=== PATIENT | female | born 1970 | race African-American/Black ===

== ENCOUNTER 2018-07-04 11:59 | Inpatient (IN) | payer MEDICARE, MEDICAID ==
[2018-07-04] VITALS (32 sets, daily range): BP systolic 79–118; BP diastolic 48–71
[~2018-07-04] VITALS: Ht 180.3 cm; Wt 120.7 kg
[2018-07-04] MEDS ORDERED: ONDANSETRON HCL 4MG/2ML INJ IV STA (12:16)
[2018-07-04] MEDS ORDERED: SODIUM CHLORIDE 0.9% 10ML VIAL ONE (12:30)
[2018-07-04] MEDS ORDERED: PROPOFOL 10MG/ML 100ML 100 ML IV ONE (12:30)
[2018-07-04] MEDS ORDERED: ETOMIDATE 2MG/ML 10ML VIAL IV ONE ×2 (12:30)
[2018-07-04] MEDS ORDERED: VECURONIUM BROMIDE 10 MG/VIAL IV ONE ×2 (12:30)
[2018-07-04] MEDS ORDERED: VANCOMYCIN 1 G PREMIX 200 ML IV ONE (12:30)
[2018-07-04] MEDS ORDERED: SODIUM CHLORIDE 0.9% 1000ML BAG (SEPSIS BOLUS) IV ONE (12:30)
[2018-07-04] MEDS ORDERED: PIPERACILLIN/TAZ 3.375G PREMIX 50 ML IV ONE (12:30)
[2018-07-04 12:45] LABS: BASOPHILS % 0.3 % (0.0-2.0); EOSINOPHILS % 3.5 % (0.0-5.0); HEMATOCRIT. 31.9 % (36.0-48.0); HEMOGLOBIN. 9.4 g/dL (12.0-16.0); LYMPHOCYTES % 36.7 % (20.0-50.0); MEAN CORPUSCULAR HEMOGLOBIN 20.4 pg (28.0-32.0); MEAN CORPUSCULAR VOLUME 69.3 fL (81.0-99.0); MEAN PLATELET VOLUME 8.5 fl (7.4-10.4); MONOCYTES % 11.7 % (2.0-8.0); NEUTROPHILS % 47.8 % (40.0-76.0); PLATELET 269 x1000/uL (130-400)
[2018-07-04 12:51] LABS: CHLORIDE 99 mEq/L (98-107); INR 1.2; PROTHROMBIN TIME 11.9 sec (9.6-11.0)
[2018-07-04 12:55] LABS: ETHANOL BLOOD < 10 mg/dL
[2018-07-04 12:57] LABS: LDL CHOLESTEROL 78 mg/dL (5-100)
[2018-07-04 13:11] LABS: PLATELET ESTIMATE NORMAL
[2018-07-04] MEDS ORDERED: LORAZEPAM 2MG/ML CPJ IV ONE (13:15)
[2018-07-04 13:17] LABS: CLARITY URINE CLOUDY (CLEAR); COLOR URINE DARK YELLOW (YELLOW); KETONES URINE TRACE (NEGATIVE); LEUKOCYTE ESTERASE URINE 3+ (NEGATIVE); NITRITE URINE NEGATIVE (NEGATIVE); OCCULT BLOOD URINE 3+ (NEGATIVE); PH URINE 5.5 (4.5-8.0); PROTEIN URINE 2+ (NEGATIVE)
[2018-07-04] MEDS ORDERED: NOREPINEPHRINE 4MG/250ML PMX 250 ML IV ONE (14:30)
[2018-07-04 14:47] LABS: CREATINE KINASE 148 IU/L (26-192)
[2018-07-04 14:48] LABS: CREATINE KINASE MB FRACTION < 1.0 ng/mL (0.5-3.6)
[2018-07-04 15:11] LABS: BG BASE EXCESS -0.1 mmol/L (-2.0-2.0); BG CARBOXYHEMOGLOBIN 0.9 % (0.5-1.5); BG DEOXYHEMOGLOBIN 6.8 % (0.0-5.0); BG FRACTION INSPIRED OXYGEN 50; BG HCO3 ACT 26.3 mmol/L (22.0-26.0); BG METHEMOGLOBIN 0.1 % (0.0-1.5); BG OXYGEN SATURATION 93.1 % (92.0-98.5); BG OXYHEMOGLOBIN 92.2 % (94.0-97.0); BG PCO2 51.7 mmHg (35.0-45.0); BG PH 7.325 (7.350-7.450); BG PO2 73.6 mmHg (75.0-100.0); BG SAMPLE SITE RIGHT RADIAL; BG TIDAL VOLUME(mL) 600 mL; BG TOTAL HEMOGLOBIN 9.6 g/dL (12.0-18.0); BG VENT MODE VENT - A/C; BG VENT RATE 14 set
[2018-07-04 15:43] LABS: *AMPHETAMINES SCREEN URINE NEGATIVE (NEGATIVE); *BARBITURATES SCREEN URINE NEGATIVE (NEGATIVE); *BENZODIAZEPINES SCREEN URINE NEGATIVE (NEGATIVE); *COCAINE SCREEN URINE NEGATIVE (NEGATIVE); METHADONE URINE SCREEN NEGATIVE (NEGATIVE); OPIATES URINE SCREEN NEGATIVE (NEGATIVE)
[2018-07-04 15:44] LABS: CANNABINOID URINE SCREEN NEGATIVE (NEGATIVE); PHENCYCLIDINE URINE SCREEN NEGATIVE (NEGATIVE)
[2018-07-04] MEDS ORDERED: NOREPINEPHRINE 32 MG in DEXT 5% WATER 468 ML IV PRN (16:30)
[2018-07-04] MEDS: NOREPINEPHRINE 32 MG in DEXT 5% WATER 468 ML IV PRN (17:29)
[2018-07-04] MEDS: PIPERACILLIN/TAZ 3.375G PREMIX 50 ML IV SCH (17:29)
[2018-07-04] MEDS ORDERED: VANCOMYCIN 1 G PREMIX 200 ML IV SCH (18:45)
[2018-07-04] MEDS ORDERED: LORAZEPAM 2MG/ML CPJ IV PRN (18:45)
[2018-07-04] MEDS ORDERED: DIPHENHYDRAMINE 50MG/ML VIAL IV PRN (18:45)
[2018-07-04] MEDS ORDERED: ACETAMINOPHEN 650MG SUPP PR PRN (18:45)
[2018-07-04] MEDS ORDERED: ONDANSETRON HCL 4MG/2ML INJ IV PRN (18:45)
[2018-07-04] MEDS ORDERED: IPRATROPIUM/ALBUTEROL 0.5-3(2.5)MG/3ML NEB INH PRN (18:45)
[2018-07-04 19:23] LABS: TOTAL IRON BINDING CAPACITY 422 ug/dL (250-450)
[2018-07-04] MEDS: ENOXAPARIN 40MG/0.4ML SYR SUBCUT SCH (19:55)
[2018-07-04] MEDS: SODIUM CHLORIDE 0.9% 1,000 ML IV SCH (19:56)
[2018-07-04] MEDS: LEVOFLOXACIN 500MG PREMIX 100 ML IV SCH (20:14)
[2018-07-04] MEDS: IPRATROPIUM/ALBUTEROL 0.5-3(2.5)MG/3ML NEB HHN SCH (20:55)
[2018-07-04] MEDS ORDERED: PIPERACILLIN/TAZ 3.375G PREMIX 50 ML IV SCH (22:00)
[2018-07-04] MEDS ORDERED: ACETAMINOPHEN 325MG TABLET PO PRN (22:45)
[2018-07-04] MEDS ORDERED: VANCOMYCIN 1250MG in DEXTROSE 5% WATER 250ML IV SCH (23:00)
[2018-07-05] VITALS (96 sets, daily range): BP systolic 88–126; BP diastolic 38–80
[2018-07-05] MEDS: IPRATROPIUM/ALBUTEROL 0.5-3(2.5)MG/3ML NEB HHN SCH ×5 (00:27→20:03)
[2018-07-05] MEDS: PROPOFOL 10MG/ML 100ML 100 ML IV PRN ×6 (00:54→18:43)
[2018-07-05] MEDS: PIPERACILLIN/TAZ 3.375G PREMIX 50 ML IV SCH ×4 (01:02→20:08)
[2018-07-05 05:45] LABS: CHLORIDE 106 mEq/L (98-107)
[2018-07-05 05:52] LABS: PHOSPHORUS 1.6 mg/dL (2.5-4.9)
[2018-07-05 05:56] LABS: HEMATOCRIT. 28.2 % (36.0-48.0); HEMOGLOBIN. 8.7 g/dL (12.0-16.0); MEAN CORPUSCULAR HEMOGLOBIN 20.8 pg (28.0-32.0); MEAN CORPUSCULAR VOLUME 67.4 fL (81.0-99.0); PLATELET 204 x1000/uL (130-400); RED BLOOD CELL COUNT 4.19 mill/uL (4.2-5.4); RED CELL DISTRIBUTION WIDTH 19.1 % (11.6-14.6)
[2018-07-05] MEDS ORDERED: BLOOD SUGAR DIAGNOSTIC STRIP TEST SCH (06:30)
[2018-07-05] MEDS ORDERED: INSULIN LISPRO 100 UNITS/ML SUBCUT SCH (07:00)
[2018-07-05 07:05] LABS: PLATELET ESTIMATE NORMAL
[2018-07-05 08:25] LABS: T4 FREE 1.3 ng/dL (0.76-1.46)
[2018-07-05] MEDS: PANTOPRAZOLE SODIUM 40 MG/VIAL IV SCH (08:27)
[2018-07-05 08:29] LABS: BG BASE EXCESS 3.1 mmol/L (-2.0-2.0); BG CARBOXYHEMOGLOBIN 0.3 % (0.5-1.5); BG DEOXYHEMOGLOBIN 2.8 % (0.0-5.0); BG HCO3 ACT 28.3 mmol/L (22.0-26.0); BG METHEMOGLOBIN 0.1 % (0.0-1.5); BG OXYGEN SATURATION 97.2 % (92.0-98.5); BG OXYHEMOGLOBIN 96.8 % (94.0-97.0); BG PCO2 46.5 mmHg (35.0-45.0); BG PH 7.402 (7.350-7.450); BG SAMPLE SITE RIGHT RADIAL; BG TIDAL VOLUME(mL) 550 mL; BG TOTAL HEMOGLOBIN 9.7 g/dL (12.0-18.0); BG VENT MODE VENT - A/C; BG VENT RATE 16 set
[2018-07-05] MEDS: SODIUM CHLORIDE 0.9% 1,000 ML IV SCH ×2 (08:31→20:21)
[2018-07-05] MEDS ORDERED: POTASSIUM PHOS,M-BASIC-D-BASIC 10 MMOL in DEXT 5% WATER 246.6667 ML IV SCH (09:00)
[2018-07-05] MEDS ORDERED: POTA10CA42 MT (11:02)
[2018-07-05] MEDS ORDERED: LEVO137T2 MT (11:02)
[2018-07-05] MEDS ORDERED: desmopressin (11:02)
[2018-07-05] MEDS ORDERED: FURO20TA4 MT (11:02)
[2018-07-05] MEDS ORDERED: LIP40 MT (11:02)
[2018-07-05] MEDS: BLOOD SUGAR DIAGNOSTIC STRIP TEST SCH ×3 (12:30→23:35)
[2018-07-05] MEDS: INSULIN LISPRO 100 UNITS/ML SUBCUT SCH ×3 (12:30→23:35)
[2018-07-05] MEDS ORDERED: DEXTROSE 50% WATER 50ML SYRINGE IV PRN (12:30)
[2018-07-05] MEDS: DESMOPRESSIN ACETATE IVPB 1 MCG in SODIUM CHLORIDE 0.9% 50 ML IV SCH ×2 (13:24→22:03)
[2018-07-05] MEDS: NYSTATIN POWDER 15GM TOP SCH ×2 (14:29→21:25)
[2018-07-05] MEDS: IRON SUCROSE COMPLEX 100 MG/5 ML ML IV SCH (14:29)
[2018-07-05] MEDS: ACETAMINOPHEN 650MG/20.3ML UDC NG PRN (15:15)
[2018-07-05] MEDS ORDERED: CHOL100062 MT (17:43)
[2018-07-05] MEDS ORDERED: DESM0.1T2 MT (17:43)
[2018-07-05] MEDS ORDERED: HYDR5TAB MT ×2 (17:43)
[2018-07-05] MEDS: ENOXAPARIN 40MG/0.4ML SYR SUBCUT SCH (20:07)
[2018-07-05] MEDS: THIAMINE HCL 100MG TABLET PO SCH (20:11)
[2018-07-05] MEDS: LEVOFLOXACIN 500MG PREMIX 100 ML IV SCH (21:19)
[2018-07-05] MEDS ORDERED: VANCOMYCIN 1500MG in DEXTROSE 5% WATER 250ML IV NR (23:00)
[2018-07-06] VITALS (97 sets, daily range): BP systolic 91–128; BP diastolic 37–78
[2018-07-06] MEDS: PROPOFOL 10MG/ML 100ML 100 ML IV PRN ×2 (00:14→03:55)
[2018-07-06] MEDS: DEXT 5%/0.2% NACL 1,000 ML IV SCH ×2 (00:16→14:02)
[2018-07-06] MEDS ORDERED: VANCOMYCIN 1500MG in DEXTROSE 5% WATER 250ML IV NR (01:00)
[2018-07-06] MEDS ORDERED: POTASSIUM CHLORIDE INJ 40 MEQ in DEXT 5% WATER 500 ML IV NR (02:00)
[2018-07-06] MEDS: IPRATROPIUM/ALBUTEROL 0.5-3(2.5)MG/3ML NEB HHN SCH ×4 (02:02→20:12)
[2018-07-06] MEDS: PIPERACILLIN/TAZ 3.375G PREMIX 50 ML IV SCH ×3 (03:55→20:00)
[2018-07-06] MEDS: NOREPINEPHRINE 32 MG in DEXT 5% WATER 468 ML IV PRN (03:56)
[2018-07-06] MEDS: NYSTATIN POWDER 15GM TOP SCH ×3 (05:57→21:45)
[2018-07-06] MEDS: BLOOD SUGAR DIAGNOSTIC STRIP TEST SCH ×4 (05:57→23:42)
[2018-07-06] MEDS: INSULIN LISPRO 100 UNITS/ML SUBCUT SCH ×4 (05:57→23:42)
[2018-07-06] MEDS: THIAMINE HCL 100MG TABLET PO SCH ×2 (08:31→17:12)
[2018-07-06] MEDS: IRON SUCROSE COMPLEX 100 MG/5 ML ML IV SCH (08:31)
[2018-07-06] MEDS: PANTOPRAZOLE SODIUM 40 MG/VIAL IV SCH (08:31)
[2018-07-06 09:56] LABS: PHOSPHORUS 2.7 mg/dL (2.5-4.9)
[2018-07-06 10:44] LABS: HEMATOCRIT. 28.1 % (36.0-48.0); HEMOGLOBIN. 8.4 g/dL (12.0-16.0); MEAN CORPUSCULAR HEMOGLOBIN 20.4 pg (28.0-32.0); MEAN CORPUSCULAR VOLUME 67.8 fL (81.0-99.0); MEAN PLATELET VOLUME 8.6 fl (7.4-10.4); PLATELET 187 x1000/uL (130-400); RED BLOOD CELL COUNT 4.15 mill/uL (4.2-5.4); RED CELL DISTRIBUTION WIDTH 19.6 % (11.6-14.6)
[2018-07-06 11:24] LABS: PLATELET ESTIMATE NORMAL
[2018-07-06] MEDS: MIDAZOLAM HCL 50 MG in DEXTROSE 5% WATER 40 ML IV PRN (13:52)
[2018-07-06] MEDS: FENTANYL CITRATE/PF 500 MCG in SODIUM CHLORIDE 0.9% 40 ML IV PRN (13:54)
[2018-07-06] MEDS ORDERED: VANCOMYCIN 1500MG in DEXTROSE 5% WATER 250ML IV SCH (18:00)
[2018-07-06] MEDS: DESMOPRESSIN ACETATE 0.1MG TABLET PO SCH (20:01)
[2018-07-07] VITALS (50 sets, daily range): BP systolic 91–130; BP diastolic 41–73
[2018-07-07] MEDS: DEXT 5%/0.2% NACL 1,000 ML IV SCH ×3 (00:23→12:30)
[2018-07-07] MEDS: PIPERACILLIN/TAZ 3.375G PREMIX 50 ML IV SCH ×4 (01:01→20:14)
[2018-07-07] MEDS: MIDAZOLAM HCL 50 MG in DEXTROSE 5% WATER 40 ML IV PRN ×2 (01:04→23:19)
[2018-07-07] MEDS: IPRATROPIUM/ALBUTEROL 0.5-3(2.5)MG/3ML NEB HHN SCH ×4 (01:46→20:38)
[2018-07-07] MEDS: NYSTATIN POWDER 15GM TOP SCH ×3 (05:55→21:08)
[2018-07-07] MEDS: BLOOD SUGAR DIAGNOSTIC STRIP TEST SCH ×4 (05:55→23:41)
[2018-07-07] MEDS: INSULIN LISPRO 100 UNITS/ML SUBCUT SCH ×4 (05:55→23:41)
[2018-07-07 07:12] LABS: CREATINE KINASE 1764 IU/L (26-192)
[2018-07-07] MEDS: PANTOPRAZOLE SODIUM 40 MG/VIAL IV SCH (08:30)
[2018-07-07] MEDS: IRON SUCROSE COMPLEX 100 MG/5 ML ML IV SCH (08:30)
[2018-07-07] MEDS: THIAMINE HCL 100MG TABLET PO SCH ×2 (08:31→17:21)
[2018-07-07 13:15] LABS: BASOPHILS % 0.4 % (0.0-2.0); EOSINOPHILS % 5.6 % (0.0-5.0); HEMATOCRIT. 25.1 % (36.0-48.0); HEMOGLOBIN. 7.6 g/dL (12.0-16.0); LYMPHOCYTES % 25.4 % (20.0-50.0); MEAN CORPUSCULAR HEMOGLOBIN 20.7 pg (28.0-32.0); MEAN CORPUSCULAR VOLUME 68.1 fL (81.0-99.0); MEAN PLATELET VOLUME 8.3 fl (7.4-10.4); NEUTROPHILS % 58.6 % (40.0-76.0); PLATELET 191 x1000/uL (130-400); RED BLOOD CELL COUNT 3.69 mill/uL (4.2-5.4); RED CELL DISTRIBUTION WIDTH 19.9 % (11.6-14.6)
[2018-07-07 15:23] LABS: BG BASE EXCESS 2.1 mmol/L (-2.0-2.0); BG CARBOXYHEMOGLOBIN 0.4 % (0.5-1.5); BG DEOXYHEMOGLOBIN 2.9 % (0.0-5.0); BG FRACTION INSPIRED OXYGEN 60; BG HCO3 ACT 28.2 mmol/L (22.0-26.0); BG METHEMOGLOBIN 0.2 % (0.0-1.5); BG OXYGEN SATURATION 97.1 % (92.0-98.5); BG OXYHEMOGLOBIN 96.5 % (94.0-97.0); BG PCO2 52.3 mmHg (35.0-45.0); BG PH 7.349 (7.350-7.450); BG PO2 100.2 mmHg (75.0-100.0); BG SAMPLE SITE RIGHT RADIAL; BG TIDAL VOLUME(mL) 550 mL; BG TOTAL HEMOGLOBIN 8.4 g/dL (12.0-18.0); BG VENT MODE VENT - A/C; BG VENT RATE 16 set
[2018-07-07] MEDS: FENTANYL CITRATE/PF 500 MCG in SODIUM CHLORIDE 0.9% 40 ML IV PRN (15:27)
[2018-07-07] MEDS ORDERED: FUROSEMIDE 40MG/4ML VIAL IVP NR (16:00)
[2018-07-07] MEDS: DESMOPRESSIN ACETATE 0.1MG TABLET PO SCH (21:08)
[2018-07-08] VITALS (39 sets, daily range): BP systolic 90–116; BP diastolic 45–70
[2018-07-08] MEDS: IPRATROPIUM/ALBUTEROL 0.5-3(2.5)MG/3ML NEB HHN SCH ×5 (01:28→21:12)
[2018-07-08] MEDS: PIPERACILLIN/TAZ 3.375G PREMIX 50 ML IV SCH ×4 (01:52→19:48)
[2018-07-08] MEDS: NYSTATIN POWDER 15GM TOP SCH ×3 (05:14→21:10)
[2018-07-08] MEDS: INSULIN LISPRO 100 UNITS/ML SUBCUT SCH ×4 (05:20→23:49)
[2018-07-08] MEDS: BLOOD SUGAR DIAGNOSTIC STRIP TEST SCH ×4 (05:20→23:49)
[2018-07-08 07:47] LABS: BG BASE EXCESS 7.4 mmol/L (-2.0-2.0); BG CARBOXYHEMOGLOBIN 0.8 % (0.5-1.5); BG DEOXYHEMOGLOBIN 3.1 % (0.0-5.0); BG HCO3 ACT 33.5 mmol/L (22.0-26.0); BG METHEMOGLOBIN 0.2 % (0.0-1.5); BG OXYGEN SATURATION 96.9 % (92.0-98.5); BG OXYHEMOGLOBIN 95.9 % (94.0-97.0); BG PCO2 57.2 mmHg (35.0-45.0); BG PH 7.385 (7.350-7.450); BG PO2 94.7 mmHg (75.0-100.0); BG SAMPLE SITE RIGHT RADIAL; BG TIDAL VOLUME(mL) 550 mL; BG TOTAL HEMOGLOBIN 8.1 g/dL (12.0-18.0); BG VENT MODE VENT - A/C; BG VENT RATE 16 set
[2018-07-08] MEDS: THIAMINE HCL 100MG TABLET PO SCH ×2 (08:44→18:02)
[2018-07-08] MEDS: PANTOPRAZOLE SODIUM 40 MG/VIAL IV SCH (08:44)
[2018-07-08] MEDS ORDERED: METOLAZONE 10MG TABLET NG SCH (10:45)
[2018-07-08 11:55] LABS: HEMATOCRIT. 24.6 % (36.0-48.0); HEMOGLOBIN. 7.5 g/dL (12.0-16.0); MEAN CORPUSCULAR HEMOGLOBIN 20.8 pg (28.0-32.0); MEAN PLATELET VOLUME 8.7 fl (7.4-10.4); PLATELET 189 x1000/uL (130-400); RED BLOOD CELL COUNT 3.63 mill/uL (4.2-5.4); RED CELL DISTRIBUTION WIDTH 19.9 % (11.6-14.6)
[2018-07-08 12:09] LABS: PLATELET ESTIMATE NORMAL
[2018-07-08] MEDS: PANTOT AC/MIN OIL/PET HY-PHL OINT (AQUAPHOR) TOP SCH (14:21)
[2018-07-08] MEDS: DESMOPRESSIN ACETATE 0.1MG TABLET PO SCH (21:10)
[2018-07-09] VITALS (47 sets, daily range): BP systolic 97–129; BP diastolic 35–73
[2018-07-09] MEDS: PIPERACILLIN/TAZ 3.375G PREMIX 50 ML IV SCH ×4 (01:53→20:21)
[2018-07-09] MEDS: IPRATROPIUM/ALBUTEROL 0.5-3(2.5)MG/3ML NEB HHN SCH ×4 (02:36→20:08)
[2018-07-09 05:53] LABS: BASOPHILS % 0.6 % (0.0-2.0); EOSINOPHILS % 5.9 % (0.0-5.0); HEMATOCRIT. 24.8 % (36.0-48.0); HEMOGLOBIN. 7.6 g/dL (12.0-16.0); LYMPHOCYTES % 33.2 % (20.0-50.0); MEAN CORPUSCULAR VOLUME 68.8 fL (81.0-99.0); MEAN PLATELET VOLUME 8.5 fl (7.4-10.4); MONOCYTES % 8.9 % (2.0-8.0); NEUTROPHILS % 51.4 % (40.0-76.0); PLATELET 227 x1000/uL (130-400); RED CELL DISTRIBUTION WIDTH 19.8 % (11.6-14.6)
[2018-07-09] MEDS: INSULIN LISPRO 100 UNITS/ML SUBCUT SCH ×3 (06:00→18:00)
[2018-07-09] MEDS: BLOOD SUGAR DIAGNOSTIC STRIP TEST SCH ×3 (06:00→18:04)
[2018-07-09] MEDS: NYSTATIN POWDER 15GM TOP SCH ×3 (06:01→22:14)
[2018-07-09 08:13] LABS: BG BASE EXCESS 8.7 mmol/L (-2.0-2.0); BG CARBOXYHEMOGLOBIN 0.6 % (0.5-1.5); BG DEOXYHEMOGLOBIN 4.2 % (0.0-5.0); BG FRACTION INSPIRED OXYGEN 50; BG HCO3 ACT 34.1 mmol/L (22.0-26.0); BG METHEMOGLOBIN 0.2 % (0.0-1.5); BG OXYGEN SATURATION 95.8 % (92.0-98.5); BG PCO2 52.5 mmHg (35.0-45.0); BG SAMPLE SITE RIGHT RADIAL; BG TIDAL VOLUME(mL) 550 mL; BG TOTAL HEMOGLOBIN 8.8 g/dL (12.0-18.0); BG VENT MODE VENT - A/C; BG VENT RATE 16 set
[2018-07-09] MEDS: PANTOPRAZOLE SODIUM 40 MG/VIAL IV SCH (09:13)
[2018-07-09] MEDS: THIAMINE HCL 100MG TABLET PO SCH ×2 (09:13→18:04)
[2018-07-09] MEDS: PANTOT AC/MIN OIL/PET HY-PHL OINT (AQUAPHOR) TOP SCH (09:15)
[2018-07-09] MEDS ORDERED: FUROSEMIDE 40MG/4ML VIAL IVP NR (10:00)
[2018-07-09] MEDS ORDERED: LORAZEPAM 2MG/ML CPJ IV PRN (10:15)
[2018-07-09] MEDS ORDERED: POTASSIUM CHLORIDE 20MEQ TABLET SR PO NR (10:45)
[2018-07-09] MEDS ORDERED: POTASSIUM CHLORIDE INJ 40 MEQ in DEXT 5% WATER 250 ML IV NR (11:00)
[2018-07-09] MEDS: ACETAMINOPHEN 650MG/20.3ML UDC NG PRN ×2 (15:26→20:21)
[2018-07-09] MEDS: DESMOPRESSIN ACETATE 0.1MG TABLET PO SCH (20:50)
[2018-07-10] VITALS (54 sets, daily range): BP systolic 84–134; BP diastolic 43–83
[2018-07-10] MEDS: PIPERACILLIN/TAZ 3.375G PREMIX 50 ML IV SCH ×4 (01:23→19:53)
[2018-07-10] MEDS: IPRATROPIUM/ALBUTEROL 0.5-3(2.5)MG/3ML NEB HHN SCH ×4 (01:46→20:39)
[2018-07-10] MEDS: HYDROMORPHONE HCL/PF 2MG/ML CPJ IV PRN ×2 (02:07→23:36)
[2018-07-10] MEDS: INSULIN LISPRO 100 UNITS/ML SUBCUT SCH ×4 (05:42→17:40)
[2018-07-10] MEDS: BLOOD SUGAR DIAGNOSTIC STRIP TEST SCH ×4 (05:42→17:40)
[2018-07-10] MEDS: NYSTATIN POWDER 15GM TOP SCH ×3 (05:43→22:42)
[2018-07-10 08:08] LABS: BG BASE EXCESS 11.7 mmol/L (-2.0-2.0); BG CARBOXYHEMOGLOBIN 0.6 % (0.5-1.5); BG DEOXYHEMOGLOBIN 3.9 % (0.0-5.0); BG FRACTION INSPIRED OXYGEN 50; BG HCO3 ACT 39.2 mmol/L (22.0-26.0); BG METHEMOGLOBIN 0.3 % (0.0-1.5); BG OXYGEN SATURATION 96.1 % (92.0-98.5); BG OXYHEMOGLOBIN 95.2 % (94.0-97.0); BG PCO2 71.5 mmHg (35.0-45.0); BG PH 7.357 (7.350-7.450); BG PO2 93.7 mmHg (75.0-100.0); BG PRESSURE SUPPORT 16; BG SAMPLE SITE RIGHT RADIAL; BG TIDAL VOLUME(mL) 550 mL; BG TOTAL HEMOGLOBIN 9.5 g/dL (12.0-18.0); BG VENT MODE VENT - SIMV; BG VENT RATE 8 set
[2018-07-10] MEDS: PANTOT AC/MIN OIL/PET HY-PHL OINT (AQUAPHOR) TOP SCH (08:40)
[2018-07-10] MEDS: THIAMINE HCL 100MG TABLET PO SCH ×2 (08:40→17:39)
[2018-07-10] MEDS: PANTOPRAZOLE SODIUM 40 MG/VIAL IV SCH (08:40)
[2018-07-10 13:10] LABS: BASOPHILS % 0.7 % (0.0-2.0); HEMATOCRIT. 26.3 % (36.0-48.0); HEMOGLOBIN. 8.1 g/dL (12.0-16.0); LYMPHOCYTES % 31.1 % (20.0-50.0); MEAN CORPUSCULAR HEMOGLOBIN 21.3 pg (28.0-32.0); MEAN CORPUSCULAR VOLUME 69.4 fL (81.0-99.0); MEAN PLATELET VOLUME 7.9 fl (7.4-10.4); MONOCYTES % 8.8 % (2.0-8.0); NEUTROPHILS % 53.4 % (40.0-76.0); PLATELET 259 x1000/uL (130-400); RED BLOOD CELL COUNT 3.79 mill/uL (4.2-5.4); RED CELL DISTRIBUTION WIDTH 19.6 % (11.6-14.6)
[2018-07-10 13:18] LABS: PARTIAL THROMBOPLASTIN TIME 28.2 sec (23.4-31.0); PROTHROMBIN TIME 10.8 sec (9.6-11.0)
[2018-07-10] MEDS: SULFACETAMIDE SODIUM 10% OPHTH DROPS 15ML BOTHEYE SCH ×2 (17:39→20:06)
[2018-07-10] MEDS ORDERED: POTASSIUM CHLORIDE 20MEQ/PACKET NG NR (17:45)
[2018-07-10] MEDS: DESMOPRESSIN ACETATE 0.1MG TABLET PO SCH (20:06)
[2018-07-11] VITALS (52 sets, daily range): BP systolic 78–121; BP diastolic 27–72
[2018-07-11] MEDS: IPRATROPIUM/ALBUTEROL 0.5-3(2.5)MG/3ML NEB HHN SCH ×3 (01:45→20:49)
[2018-07-11] MEDS: PIPERACILLIN/TAZ 3.375G PREMIX 50 ML IV SCH ×4 (02:29→20:48)
[2018-07-11] MEDS: INSULIN LISPRO 100 UNITS/ML SUBCUT SCH ×4 (05:05→18:00)
[2018-07-11] MEDS: BLOOD SUGAR DIAGNOSTIC STRIP TEST SCH ×4 (05:05→18:27)
[2018-07-11] MEDS: NYSTATIN POWDER 15GM TOP SCH ×3 (05:06→22:00)
[2018-07-11 06:32] LABS: CREATINE KINASE 1666 IU/L (26-192)
[2018-07-11 07:54] LABS: BASOPHILS % 0.4 % (0.0-2.0); EOSINOPHILS % 6.2 % (0.0-5.0); HEMOGLOBIN. 9.3 g/dL (12.0-16.0); LYMPHOCYTES % 31.7 % (20.0-50.0); MEAN CORPUSCULAR HEMOGLOBIN 22.3 pg (28.0-32.0); MEAN CORPUSCULAR VOLUME 72.2 fL (81.0-99.0); MEAN PLATELET VOLUME 8.3 fl (7.4-10.4); MONOCYTES % 9.5 % (2.0-8.0); NEUTROPHILS % 52.2 % (40.0-76.0); PLATELET 297 x1000/uL (130-400); RED BLOOD CELL COUNT 4.16 mill/uL (4.2-5.4); RED CELL DISTRIBUTION WIDTH 22.2 % (11.6-14.6)
[2018-07-11 07:57] LABS: CHLORIDE 104 mEq/L (98-107)
[2018-07-11] MEDS: THIAMINE HCL 100MG TABLET PO SCH ×2 (09:00→17:00)
[2018-07-11] MEDS: PANTOPRAZOLE SODIUM 40 MG/VIAL IV SCH (09:02)
[2018-07-11] MEDS: PANTOT AC/MIN OIL/PET HY-PHL OINT (AQUAPHOR) TOP SCH (09:03)
[2018-07-11] MEDS: SULFACETAMIDE SODIUM 10% OPHTH DROPS 15ML BOTHEYE SCH ×4 (09:03→20:48)
[2018-07-11 09:14] LABS: BG BASE EXCESS 12.6 mmol/L (-2.0-2.0); BG CARBOXYHEMOGLOBIN 0.8 % (0.5-1.5); BG DEOXYHEMOGLOBIN 4.3 % (0.0-5.0); BG FRACTION INSPIRED OXYGEN 50; BG HCO3 ACT 39.8 mmol/L (22.0-26.0); BG METHEMOGLOBIN 0.3 % (0.0-1.5); BG OXYGEN SATURATION 95.7 % (92.0-98.5); BG OXYHEMOGLOBIN 94.6 % (94.0-97.0); BG PCO2 67.5 mmHg (35.0-45.0); BG PH 7.388 (7.350-7.450); BG PO2 83.3 mmHg (75.0-100.0); BG PRESSURE SUPPORT 12; BG SAMPLE SITE RIGHT RADIAL; BG TIDAL VOLUME(mL) 500 mL; BG TOTAL HEMOGLOBIN 10.3 g/dL (12.0-18.0); BG VENT MODE VENT - SIMV; BG VENT RATE 14 set
[2018-07-11] MEDS: DESMOPRESSIN ACETATE 0.1MG TABLET PO SCH (20:48)
[2018-07-12] VITALS (59 sets, daily range): BP systolic 88–145; BP diastolic 25–91
[2018-07-12] MEDS: IPRATROPIUM/ALBUTEROL 0.5-3(2.5)MG/3ML NEB HHN SCH ×4 (01:49→20:04)
[2018-07-12] MEDS: INSULIN LISPRO 100 UNITS/ML SUBCUT SCH ×4 (06:00→18:00)
[2018-07-12 06:05] LABS: HEMATOCRIT 30.5 % (36.0-48.0); HEMOGLOBIN 9.5 g/dL (12.0-16.0); MEAN CORPUSCULAR HEMOGLOBIN 22.6 pg (28.0-32.0); MEAN CORPUSCULAR VOLUME 72.9 fL (81.0-99.0); PLATELET 324 x1000/uL (130-400); RED BLOOD CELL COUNT 4.18 mill/uL (4.2-5.4); RED CELL DISTRIBUTION WIDTH 23.8 % (11.6-14.6)
[2018-07-12] MEDS: BLOOD SUGAR DIAGNOSTIC STRIP TEST SCH ×4 (06:17→18:00)
[2018-07-12] MEDS: NYSTATIN POWDER 15GM TOP SCH ×3 (06:17→22:08)
[2018-07-12 06:18] LABS: PARTIAL THROMBOPLASTIN TIME 27.5 sec (23.4-31.0); PROTHROMBIN TIME 10.4 sec (9.6-11.0)
[2018-07-12 09:00] LABS: BG BASE EXCESS 12.1 mmol/L (-2.0-2.0); BG CARBOXYHEMOGLOBIN 0.1 % (0.5-1.5); BG FRACTION INSPIRED OXYGEN 50; BG HCO3 ACT 38.4 mmol/L (22.0-26.0); BG METHEMOGLOBIN 0.2 % (0.0-1.5); BG OXYHEMOGLOBIN 93.7 % (94.0-97.0); BG PCO2 60.8 mmHg (35.0-45.0); BG PH 7.418 (7.350-7.450); BG PO2 73.7 mmHg (75.0-100.0); BG PRESSURE SUPPORT 12; BG SAMPLE SITE RIGHT RADIAL; BG TIDAL VOLUME(mL) 500 mL; BG TOTAL HEMOGLOBIN 9.7 g/dL (12.0-18.0); BG VENT MODE VENT - SIMV; BG VENT RATE 14 set
[2018-07-12] MEDS ORDERED: KCL 20MEQ/100ML PREMIX 100 ML IV SCH (09:00)
[2018-07-12] MEDS: THIAMINE HCL 100MG TABLET PO SCH ×2 (09:00→17:00)
[2018-07-12] MEDS: PANTOPRAZOLE SODIUM 40 MG/VIAL IV SCH (09:44)
[2018-07-12] MEDS: SULFACETAMIDE SODIUM 10% OPHTH DROPS 15ML BOTHEYE SCH ×4 (09:45→20:10)
[2018-07-12] MEDS: PANTOT AC/MIN OIL/PET HY-PHL OINT (AQUAPHOR) TOP SCH (09:46)
[2018-07-12] MEDS ORDERED: BACTERIOSTATIC SODIUM CHLORIDE 0.9% 30ML VIAL IJ ONE (13:41)
[2018-07-12] MEDS ORDERED: SIMETHICONE 40 MG/0.6 ML 30ML ONE (13:41)
[2018-07-12] MEDS ORDERED: MIDAZOLAM HCL 5 MG/5 ML VIAL ONE (13:47)
[2018-07-12] MEDS ORDERED: FENTANYL CITRATE/PF 50MCG/ML 2ML VIAL ONE ×2 (13:47→18:12)
[2018-07-12] MEDS ORDERED: MIDAZOLAM HCL 5 MG/5 ML VIAL IV PRN (14:20)
[2018-07-12] MEDS ORDERED: CEFAZOLIN 1000MG PREMIX 50 ML IV NR ×2 (17:30→23:30)
[2018-07-12] MEDS ORDERED: VECURONIUM BROMIDE 10 MG/VIAL IV ONE (18:03)
[2018-07-12] MEDS ORDERED: MIDAZOLAM HCL 2 MG/2 ML VIAL ONE (18:10)
[2018-07-12] MEDS: DESMOPRESSIN ACETATE 0.1MG TABLET PO SCH (20:10)
[2018-07-13] VITALS (57 sets, daily range): BP systolic 81–133; BP diastolic 35–99
[2018-07-13] MEDS: BLOOD SUGAR DIAGNOSTIC STRIP TEST SCH ×4 (00:14→18:01)
[2018-07-13] MEDS: INSULIN LISPRO 100 UNITS/ML SUBCUT SCH ×4 (06:00→18:00)
[2018-07-13] MEDS: NYSTATIN POWDER 15GM TOP SCH ×3 (06:30→21:39)
[2018-07-13 06:43] LABS: BASOPHILS % 0.5 % (0.0-2.0); EOSINOPHILS % 6.2 % (0.0-5.0); HEMATOCRIT. 32.1 % (36.0-48.0); HEMOGLOBIN. 9.9 g/dL (12.0-16.0); LYMPHOCYTES % 30.6 % (20.0-50.0); MEAN CORPUSCULAR HEMOGLOBIN 22.5 pg (28.0-32.0); MEAN CORPUSCULAR VOLUME 73.1 fL (81.0-99.0); MEAN PLATELET VOLUME 7.8 fl (7.4-10.4); MONOCYTES % 8.9 % (2.0-8.0); NEUTROPHILS % 53.8 % (40.0-76.0); PLATELET 310 x1000/uL (130-400); RED CELL DISTRIBUTION WIDTH 24.1 % (11.6-14.6)
[2018-07-13] MEDS: IPRATROPIUM/ALBUTEROL 0.5-3(2.5)MG/3ML NEB HHN SCH ×3 (07:54→20:23)
[2018-07-13] MEDS: PANTOT AC/MIN OIL/PET HY-PHL OINT (AQUAPHOR) TOP SCH (09:00)
[2018-07-13] MEDS ORDERED: POTASSIUM CHLORIDE 20MEQ/PACKET PO NR ×2 (09:00→15:00)
[2018-07-13] MEDS: THIAMINE HCL 100MG TABLET PO SCH ×2 (09:04→18:00)
[2018-07-13] MEDS: PANTOPRAZOLE SODIUM 40 MG/VIAL IV SCH (09:05)
[2018-07-13] MEDS: SULFACETAMIDE SODIUM 10% OPHTH DROPS 15ML BOTHEYE SCH ×4 (09:05→20:48)
[2018-07-13] MEDS: BROMOCRIPTINE MESYLATE 2.5 MG TABLET PO SCH (09:05)
[2018-07-13 09:21] LABS: BG BASE EXCESS 9.1 mmol/L (-2.0-2.0); BG CARBOXYHEMOGLOBIN 0.2 % (0.5-1.5); BG DEOXYHEMOGLOBIN 4.6 % (0.0-5.0); BG FRACTION INSPIRED OXYGEN 40; BG HCO3 ACT 34.7 mmol/L (22.0-26.0); BG METHEMOGLOBIN 0.3 % (0.0-1.5); BG OXYGEN SATURATION 95.4 % (92.0-98.5); BG OXYHEMOGLOBIN 94.9 % (94.0-97.0); BG PCO2 52.6 mmHg (35.0-45.0); BG PH 7.437 (7.350-7.450); BG PO2 80.5 mmHg (75.0-100.0); BG PRESSURE SUPPORT 12; BG SAMPLE SITE RIGHT RADIAL; BG TIDAL VOLUME(mL) 500 mL; BG TOTAL HEMOGLOBIN 10.9 g/dL (12.0-18.0); BG VENT MODE VENT - SIMV; BG VENT RATE 8 set
[2018-07-13] MEDS ORDERED: LEVOTHYROXINE SODIUM 100MCG TABLET PO SCH (14:45)
[2018-07-13] MEDS: DESMOPRESSIN ACETATE 0.1MG TABLET PO SCH (18:00)
[2018-07-13] MEDS: CLOTRIMAZOLE 10MG TROCHE MM SCH ×2 (18:00→20:48)
[2018-07-13] MEDS ORDERED: LEVOTHYROXINE SODIUM 50MCG TABLET PO NR (18:30)
[2018-07-13] MEDS ORDERED: HYDROCORTISONE 20MG TABLET PO SCH (19:00)
[2018-07-13] MEDS ORDERED: NYSTATIN 100,000 UNITS/GM CREAM 15GM TOP SCH (21:00)
[2018-07-13] MEDS: NYSTATIN 100,000 UNITS/GM CREAM 15GM TOP SCH (21:39)
[2018-07-14] VITALS (12 sets, daily range): BP systolic 86–114; BP diastolic 36–65
[2018-07-14] MEDS: IPRATROPIUM/ALBUTEROL 0.5-3(2.5)MG/3ML NEB HHN SCH ×5 (04:10→20:13)
[2018-07-14] MEDS: INSULIN LISPRO 100 UNITS/ML SUBCUT SCH ×5 (06:00→23:51)
[2018-07-14] MEDS: HYDROMORPHONE HCL/PF 2MG/ML CPJ IV PRN (06:04)
[2018-07-14] MEDS: BLOOD SUGAR DIAGNOSTIC STRIP TEST SCH ×5 (06:05→23:51)
[2018-07-14] MEDS: NYSTATIN POWDER 15GM TOP SCH ×3 (06:05→21:42)
[2018-07-14 07:12] LABS: BASOPHILS % 0.7 % (0.0-2.0); EOSINOPHILS % 5.9 % (0.0-5.0); HEMATOCRIT. 31.8 % (36.0-48.0); HEMOGLOBIN. 9.7 g/dL (12.0-16.0); LYMPHOCYTES % 33.9 % (20.0-50.0); MEAN CORPUSCULAR HEMOGLOBIN 22.3 pg (28.0-32.0); MEAN PLATELET VOLUME 8.1 fl (7.4-10.4); MONOCYTES % 9.5 % (2.0-8.0); PLATELET 340 x1000/uL (130-400); RED BLOOD CELL COUNT 4.35 mill/uL (4.2-5.4); RED CELL DISTRIBUTION WIDTH 24.9 % (11.6-14.6)
[2018-07-14 07:24] LABS: CHLORIDE 106 mEq/L (98-107)
[2018-07-14 07:35] LABS: PHOSPHORUS 2.7 mg/dL (2.5-4.9)
[2018-07-14 08:11] LABS: BG BASE EXCESS 9.9 mmol/L (-2.0-2.0); BG CARBOXYHEMOGLOBIN 0.3 % (0.5-1.5); BG DEOXYHEMOGLOBIN 6.5 % (0.0-5.0); BG FRACTION INSPIRED OXYGEN 50; BG HCO3 ACT 36.1 mmol/L (22.0-26.0); BG METHEMOGLOBIN 0.2 % (0.0-1.5); BG OXYGEN SATURATION 93.5 % (92.0-98.5); BG PCO2 58.6 mmHg (35.0-45.0); BG PH 7.408 (7.350-7.450); BG PO2 69.1 mmHg (75.0-100.0); BG SAMPLE SITE RIGHT RADIAL; BG TIDAL VOLUME(mL) 500 mL; BG TOTAL HEMOGLOBIN 10.2 g/dL (12.0-18.0); BG VENT MODE VENT - A/C; BG VENT RATE 16 set
[2018-07-14] MEDS: THIAMINE HCL 100MG TABLET PO SCH ×2 (08:51→17:52)
[2018-07-14] MEDS: PANTOPRAZOLE SODIUM 40 MG/VIAL IV SCH (08:51)
[2018-07-14] MEDS: HYDROCORTISONE 20MG TABLET PO SCH (08:53)
[2018-07-14] MEDS: PANTOT AC/MIN OIL/PET HY-PHL OINT (AQUAPHOR) TOP SCH (08:56)
[2018-07-14] MEDS: SULFACETAMIDE SODIUM 10% OPHTH DROPS 15ML BOTHEYE SCH ×2 (08:56→13:05)
[2018-07-14] MEDS: NYSTATIN 100,000 UNITS/GM CREAM 15GM TOP SCH ×2 (08:58→21:42)
[2018-07-14] MEDS: BROMOCRIPTINE MESYLATE 2.5 MG TABLET PO SCH (09:10)
[2018-07-14] MEDS: DESMOPRESSIN ACETATE 0.1MG TABLET PO SCH ×2 (09:10→17:53)
[2018-07-14] MEDS: LEVOTHYROXINE SODIUM 137MCG TABLET PO SCH (10:19)
[2018-07-14] MEDS: CLOTRIMAZOLE 10MG TROCHE MM SCH ×4 (10:19→21:43)
[2018-07-14] MEDS: ACETAMINOPHEN 650MG/20.3ML UDC NG PRN (10:48)
[2018-07-14] MEDS ORDERED: SODIUM CHLORIDE 0.9% 250 ML IV ONE (11:45)
[2018-07-14] MEDS: POTASSIUM CHLORIDE 20MEQ/PACKET PO NR ×2 (14:45→17:53)
[2018-07-14] MEDS: POTASSIUM CHLORIDE INJ 40 MEQ in DEXTROSE 5% WATER 1,000 ML IV SCH (17:09)
[2018-07-14 17:35] LABS: CREATINE KINASE 839 IU/L (26-192)
[2018-07-14] MEDS: METOCLOPRAMIDE HCL 10MG/2ML VIAL IV SCH ×2 (17:52→23:50)
[2018-07-14] MEDS ORDERED: METOCLOPRAMIDE HCL 10MG/2ML VIAL IV SCH (18:00)
[2018-07-14] MEDS: POLYVINYL ALCOHOL OPHTH DROPS 15ML BOTHEYE SCH (18:29)
[2018-07-14] MEDS: HYDROCORTISONE SOD SUCCINATE 100 MG/2 ML VIAL IV SCH (21:43)
[2018-07-15] VITALS (13 sets, daily range): BP systolic 93–112; BP diastolic 45–60
[2018-07-15] MEDS: IPRATROPIUM/ALBUTEROL 0.5-3(2.5)MG/3ML NEB HHN SCH ×4 (02:31→21:01)
[2018-07-15] MEDS: INSULIN LISPRO 100 UNITS/ML SUBCUT SCH ×3 (05:57→17:16)
[2018-07-15] MEDS: NYSTATIN POWDER 15GM TOP SCH ×3 (05:57→21:09)
[2018-07-15] MEDS: BLOOD SUGAR DIAGNOSTIC STRIP TEST SCH ×3 (05:57→17:16)
[2018-07-15] MEDS: METOCLOPRAMIDE HCL 10MG/2ML VIAL IV SCH ×3 (06:00→17:16)
[2018-07-15] MEDS: HYDROCORTISONE SOD SUCCINATE 100 MG/2 ML VIAL IV SCH (06:00)
[2018-07-15 06:28] LABS: BASOPHILS % 0.4 % (0.0-2.0); EOSINOPHILS % 0.2 % (0.0-5.0); HEMATOCRIT. 30.2 % (36.0-48.0); HEMOGLOBIN. 9.3 g/dL (12.0-16.0); LYMPHOCYTES % 16.7 % (20.0-50.0); MEAN CORPUSCULAR HEMOGLOBIN 22.6 pg (28.0-32.0); MEAN CORPUSCULAR VOLUME 73.2 fL (81.0-99.0); MEAN PLATELET VOLUME 7.8 fl (7.4-10.4); MONOCYTES % 4.3 % (2.0-8.0); NEUTROPHILS % 78.4 % (40.0-76.0); PLATELET 336 x1000/uL (130-400); RED BLOOD CELL COUNT 4.13 mill/uL (4.2-5.4); RED CELL DISTRIBUTION WIDTH 25.1 % (11.6-14.6)
[2018-07-15 06:37] LABS: CHLORIDE 108 mEq/L (98-107)
[2018-07-15 06:45] LABS: CREATINE KINASE 619 IU/L (26-192); PHOSPHORUS 2.9 mg/dL (2.5-4.9)
[2018-07-15 06:47] LABS: LDL CHOLESTEROL 147 mg/dL (5-100)
[2018-07-15 06:48] LABS: HDL CHOLESTEROL 23 mg/dL (40-59)
[2018-07-15] MEDS: PANTOPRAZOLE SODIUM 40 MG/VIAL IV SCH (09:07)
[2018-07-15] MEDS: CLOTRIMAZOLE 10MG TROCHE MM SCH ×4 (09:07→21:07)
[2018-07-15] MEDS: DESMOPRESSIN ACETATE 0.1MG TABLET PO SCH ×2 (09:07→17:15)
[2018-07-15] MEDS: LEVOTHYROXINE SODIUM 137MCG TABLET PO SCH (09:07)
[2018-07-15] MEDS: BROMOCRIPTINE MESYLATE 2.5 MG TABLET PO SCH (09:07)
[2018-07-15] MEDS: THIAMINE HCL 100MG TABLET PO SCH ×2 (09:07→17:16)
[2018-07-15] MEDS: POLYVINYL ALCOHOL OPHTH DROPS 15ML BOTHEYE SCH ×2 (09:09→17:16)
[2018-07-15] MEDS: NYSTATIN 100,000 UNITS/GM CREAM 15GM TOP SCH ×2 (09:09→21:11)
[2018-07-15] MEDS: PANTOT AC/MIN OIL/PET HY-PHL OINT (AQUAPHOR) TOP SCH (09:09)
[2018-07-15] MEDS: ACETAMINOPHEN 650MG/20.3ML UDC NG PRN (12:23)
[2018-07-15 16:39] LABS: CLARITY URINE CLOUDY (CLEAR); COLOR URINE DARK YELLOW (YELLOW); KETONES URINE TRACE (NEGATIVE); LEUKOCYTE ESTERASE URINE NEGATIVE (NEGATIVE); NITRITE URINE NEGATIVE (NEGATIVE); OCCULT BLOOD URINE 3+ (NEGATIVE); PROTEIN URINE 1+ (NEGATIVE); SPECIFIC GRAVITY URINE 1.024 (1.005-1.030)
[2018-07-15] MEDS: POTASSIUM CHLORIDE INJ 40 MEQ in DEXTROSE 5% WATER 1,000 ML IV SCH (17:46)
[2018-07-16] VITALS (20 sets, daily range): BP systolic 98–111; BP diastolic 52–73
[2018-07-16] MEDS: BLOOD SUGAR DIAGNOSTIC STRIP TEST SCH ×2 (00:40→06:41)
[2018-07-16] MEDS: METOCLOPRAMIDE HCL 10MG/2ML VIAL IV SCH ×4 (00:40→17:22)
[2018-07-16] MEDS: IPRATROPIUM/ALBUTEROL 0.5-3(2.5)MG/3ML NEB HHN SCH ×4 (02:04→19:40)
[2018-07-16] MEDS: POTASSIUM CHLORIDE INJ 40 MEQ in DEXTROSE 5% WATER 1,000 ML IV SCH ×2 (02:26→21:39)
[2018-07-16 05:36] LABS: BASOPHILS % 0.6 % (0.0-2.0); EOSINOPHILS % 3.2 % (0.0-5.0); HEMATOCRIT. 29.5 % (36.0-48.0); HEMOGLOBIN. 9.2 g/dL (12.0-16.0); LYMPHOCYTES % 38.8 % (20.0-50.0); MEAN CORPUSCULAR HEMOGLOBIN 22.9 pg (28.0-32.0); MEAN CORPUSCULAR VOLUME 73.3 fL (81.0-99.0); MEAN PLATELET VOLUME 8.1 fl (7.4-10.4); MONOCYTES % 6.6 % (2.0-8.0); NEUTROPHILS % 50.8 % (40.0-76.0); PLATELET 340 x1000/uL (130-400); RED BLOOD CELL COUNT 4.03 mill/uL (4.2-5.4); RED CELL DISTRIBUTION WIDTH 25.9 % (11.6-14.6)
[2018-07-16 05:56] LABS: CHLORIDE 107 mEq/L (98-107)
[2018-07-16] MEDS: INSULIN LISPRO 100 UNITS/ML SUBCUT SCH ×2 (06:00)
[2018-07-16 06:02] LABS: PHOSPHORUS 3.5 mg/dL (2.5-4.9)
[2018-07-16 06:04] LABS: CREATINE KINASE 342 IU/L (26-192)
[2018-07-16] MEDS: LEVOTHYROXINE SODIUM 137MCG TABLET PO SCH (06:39)
[2018-07-16] MEDS: NYSTATIN POWDER 15GM TOP SCH ×3 (06:39→22:17)
[2018-07-16] MEDS ORDERED: LIDOCAINE HCL 1% 20ML VIAL (Pyxis) INJ ONE (08:30)
[2018-07-16] MEDS: BROMOCRIPTINE MESYLATE 2.5 MG TABLET PO SCH (08:35)
[2018-07-16] MEDS: CLOTRIMAZOLE 10MG TROCHE MM SCH ×4 (08:35→21:41)
[2018-07-16] MEDS: POLYVINYL ALCOHOL OPHTH DROPS 15ML BOTHEYE SCH ×2 (08:35→17:21)
[2018-07-16] MEDS: DESMOPRESSIN ACETATE 0.1MG TABLET PO SCH ×2 (08:35→17:22)
[2018-07-16] MEDS: POTASSIUM CHLORIDE 20MEQ/PACKET PO SCH (08:35)
[2018-07-16] MEDS: HYDROCORTISONE 20MG TABLET PO SCH (08:35)
[2018-07-16] MEDS: PANTOT AC/MIN OIL/PET HY-PHL OINT (AQUAPHOR) TOP SCH (08:36)
[2018-07-16] MEDS: THIAMINE HCL 100MG TABLET PO SCH ×2 (08:36→17:21)
[2018-07-16] MEDS: NYSTATIN 100,000 UNITS/GM CREAM 15GM TOP SCH (08:37)
[2018-07-16] MEDS ORDERED: VANCOMYCIN 2,000 MG in DEXT 5% WATER 500 ML IV SCH (15:00)
[2018-07-16] MEDS: CEFEPIME 1,000 MG in DEXTROSE 5% WATER 50 ML IV SCH ×2 (18:00→21:39)
[2018-07-17] VITALS (19 sets, daily range): BP systolic 90–116; BP diastolic 47–75
[2018-07-17] MEDS: METOCLOPRAMIDE HCL 10MG/2ML VIAL IV SCH ×5 (00:57→23:39)
[2018-07-17] MEDS: NYSTATIN 100,000 UNITS/GM CREAM 15GM TOP SCH ×3 (00:58→20:59)
[2018-07-17] MEDS: IPRATROPIUM/ALBUTEROL 0.5-3(2.5)MG/3ML NEB HHN SCH ×4 (02:10→20:25)
[2018-07-17] MEDS: NYSTATIN POWDER 15GM TOP SCH ×3 (05:56→21:00)
[2018-07-17] MEDS: CEFEPIME 1,000 MG in DEXTROSE 5% WATER 50 ML IV SCH ×2 (05:57→17:21)
[2018-07-17] MEDS: VANCOMYCIN 1500MG in DEXTROSE 5% WATER 250ML IV SCH (05:58)
[2018-07-17 06:50] LABS: BASOPHILS % 0.5 % (0.0-2.0); EOSINOPHILS % 4.2 % (0.0-5.0); HEMATOCRIT. 29.3 % (36.0-48.0); MEAN CORPUSCULAR HEMOGLOBIN 22.6 pg (28.0-32.0); MEAN CORPUSCULAR VOLUME 73.6 fL (81.0-99.0); MEAN PLATELET VOLUME 7.9 fl (7.4-10.4); NEUTROPHILS % 52.3 % (40.0-76.0); PLATELET 314 x1000/uL (130-400); RED BLOOD CELL COUNT 3.98 mill/uL (4.2-5.4); RED CELL DISTRIBUTION WIDTH 25.5 % (11.6-14.6)
[2018-07-17 07:21] LABS: CHLORIDE 107 mEq/L (98-107)
[2018-07-17 07:28] LABS: PHOSPHORUS 3.7 mg/dL (2.5-4.9)
[2018-07-17] MEDS: LEVOTHYROXINE SODIUM 137MCG TABLET PO SCH (07:51)
[2018-07-17] MEDS: DESMOPRESSIN ACETATE 0.1MG TABLET PO SCH ×2 (08:39→17:22)
[2018-07-17] MEDS: POTASSIUM CHLORIDE 20MEQ/PACKET PO SCH (08:39)
[2018-07-17] MEDS: THIAMINE HCL 100MG TABLET PO SCH ×2 (08:39→17:22)
[2018-07-17] MEDS: HYDROCORTISONE 20MG TABLET PO SCH (08:39)
[2018-07-17] MEDS: BROMOCRIPTINE MESYLATE 2.5 MG TABLET PO SCH (08:41)
[2018-07-17] MEDS: CLOTRIMAZOLE 10MG TROCHE MM SCH ×4 (08:41→20:58)
[2018-07-17] MEDS: POLYVINYL ALCOHOL OPHTH DROPS 15ML BOTHEYE SCH ×2 (08:43→17:22)
[2018-07-17] MEDS: PANTOT AC/MIN OIL/PET HY-PHL OINT (AQUAPHOR) TOP SCH (08:44)
[2018-07-17] MEDS: POTASSIUM CHLORIDE INJ 40 MEQ in DEXTROSE 5% WATER 1,000 ML IV SCH (11:17)
[2018-07-17] MEDS: ACETAMINOPHEN 650MG/20.3ML UDC NG PRN (23:40)
[2018-07-18] VITALS (12 sets, daily range): BP systolic 98–148; BP diastolic 53–83
[2018-07-18] MEDS: VANCOMYCIN 1500MG in DEXTROSE 5% WATER 250ML IV SCH (01:07)
[2018-07-18] MEDS: IPRATROPIUM/ALBUTEROL 0.5-3(2.5)MG/3ML NEB HHN SCH ×4 (02:21→20:41)
[2018-07-18] MEDS: METOCLOPRAMIDE HCL 10MG/2ML VIAL IV SCH ×3 (06:09→17:22)
[2018-07-18] MEDS: NYSTATIN POWDER 15GM TOP SCH ×3 (06:10→22:16)
[2018-07-18] MEDS: CEFEPIME 1,000 MG in DEXTROSE 5% WATER 50 ML IV SCH ×2 (06:15→17:10)
[2018-07-18] MEDS: THIAMINE HCL 100MG TABLET PO SCH ×2 (08:35→17:11)
[2018-07-18] MEDS: LEVOTHYROXINE SODIUM 137MCG TABLET PO SCH (08:35)
[2018-07-18] MEDS: HYDROCORTISONE 20MG TABLET PO SCH (08:35)
[2018-07-18] MEDS: POTASSIUM CHLORIDE 20MEQ/PACKET PO SCH (08:35)
[2018-07-18] MEDS: DESMOPRESSIN ACETATE 0.1MG TABLET PO SCH ×2 (08:35→17:11)
[2018-07-18] MEDS: CLOTRIMAZOLE 10MG TROCHE MM SCH ×4 (08:36→22:10)
[2018-07-18] MEDS: BROMOCRIPTINE MESYLATE 2.5 MG TABLET PO SCH (08:37)
[2018-07-18] MEDS: PANTOT AC/MIN OIL/PET HY-PHL OINT (AQUAPHOR) TOP SCH (08:37)
[2018-07-18] MEDS: NYSTATIN 100,000 UNITS/GM CREAM 15GM TOP SCH ×2 (08:37→21:00)
[2018-07-18] MEDS: POLYVINYL ALCOHOL OPHTH DROPS 15ML BOTHEYE SCH ×2 (08:38→17:11)
[2018-07-18] MEDS: POTASSIUM CHLORIDE INJ 40 MEQ in DEXTROSE 5% WATER 1,000 ML IV SCH (15:15)
[2018-07-19] VITALS (11 sets, daily range): BP systolic 97–158; BP diastolic 54–74
[2018-07-19] MEDS: IPRATROPIUM/ALBUTEROL 0.5-3(2.5)MG/3ML NEB HHN SCH ×4 (02:09→20:22)
[2018-07-19] MEDS: METOCLOPRAMIDE HCL 10MG/2ML VIAL IV SCH ×4 (06:22→18:05)
[2018-07-19] MEDS: CEFEPIME 1,000 MG in DEXTROSE 5% WATER 50 ML IV SCH ×2 (06:22→18:04)
[2018-07-19] MEDS: NYSTATIN POWDER 15GM TOP SCH ×3 (06:28→21:49)
[2018-07-19 06:48] LABS: BASOPHILS % 0.8 % (0.0-2.0); HEMATOCRIT. 29.1 % (36.0-48.0); HEMOGLOBIN. 8.9 g/dL (12.0-16.0); LYMPHOCYTES % 34.5 % (20.0-50.0); MEAN CORPUSCULAR HEMOGLOBIN 22.9 pg (28.0-32.0); MEAN CORPUSCULAR VOLUME 74.5 fL (81.0-99.0); MONOCYTES % 11.2 % (2.0-8.0); NEUTROPHILS % 49.5 % (40.0-76.0); PLATELET 289 x1000/uL (130-400); RED CELL DISTRIBUTION WIDTH 25.8 % (11.6-14.6); T4 FREE 0.68 ng/dL (0.76-1.46)
[2018-07-19 08:20] LABS: BG BASE EXCESS 2.3 mmol/L (-2.0-2.0); BG CARBOXYHEMOGLOBIN 0.2 % (0.5-1.5); BG DEOXYHEMOGLOBIN 2.5 % (0.0-5.0); BG FRACTION INSPIRED OXYGEN 50; BG HCO3 ACT 28.3 mmol/L (22.0-26.0); BG METHEMOGLOBIN 0.3 % (0.0-1.5); BG OXYGEN SATURATION 97.5 % (92.0-98.5); BG PCO2 51.1 mmHg (35.0-45.0); BG PH 7.361 (7.350-7.450); BG PO2 101.2 mmHg (75.0-100.0); BG PRESSURE SUPPORT 8; BG SAMPLE SITE RIGHT RADIAL; BG TIDAL VOLUME(mL) 550 mL; BG TOTAL HEMOGLOBIN 9.8 g/dL (12.0-18.0); BG VENT MODE VENT - SIMV; BG VENT RATE 6 set
[2018-07-19] MEDS: CLOTRIMAZOLE 10MG TROCHE MM SCH ×4 (09:00→21:57)
[2018-07-19] MEDS: BROMOCRIPTINE MESYLATE 2.5 MG TABLET PO SCH (09:00)
[2018-07-19] MEDS: LEVOTHYROXINE SODIUM 137MCG TABLET PO SCH (10:33)
[2018-07-19] MEDS: HYDROCORTISONE 20MG TABLET PO SCH (10:33)
[2018-07-19] MEDS: POLYVINYL ALCOHOL OPHTH DROPS 15ML BOTHEYE SCH ×2 (10:34→18:07)
[2018-07-19] MEDS: POTASSIUM CHLORIDE 20MEQ/PACKET PO SCH (10:34)
[2018-07-19] MEDS: THIAMINE HCL 100MG TABLET PO SCH ×2 (10:34→18:05)
[2018-07-19] MEDS: DESMOPRESSIN ACETATE 0.1MG TABLET PO SCH ×2 (10:35→18:05)
[2018-07-19] MEDS: PANTOT AC/MIN OIL/PET HY-PHL OINT (AQUAPHOR) TOP SCH (11:00)
[2018-07-19] MEDS ORDERED: LIDOCAINE HCL/PF 1% 2ML VIAL ONE (16:50)
[2018-07-19] MEDS: NYSTATIN 100,000 UNITS/GM CREAM 15GM TOP SCH ×2 (21:00→21:49)
[2018-07-19] MEDS: POTASSIUM CHLORIDE INJ 40 MEQ in DEXTROSE 5% WATER 1,000 ML IV SCH (21:51)
[2018-07-20] VITALS (12 sets, daily range): BP systolic 98–116; BP diastolic 45–70
[2018-07-20] MEDS: METOCLOPRAMIDE HCL 10MG/2ML VIAL IV SCH ×4 (01:02→23:18)
[2018-07-20] MEDS: IPRATROPIUM/ALBUTEROL 0.5-3(2.5)MG/3ML NEB HHN SCH ×3 (01:41→20:35)
[2018-07-20] MEDS: NYSTATIN POWDER 15GM TOP SCH ×3 (05:24→21:30)
[2018-07-20] MEDS: CEFEPIME 1,000 MG in DEXTROSE 5% WATER 50 ML IV SCH ×2 (05:24→18:04)
[2018-07-20 07:38] LABS: BASOPHILS % 0.9 % (0.0-2.0); EOSINOPHILS % 3.4 % (0.0-5.0); HEMATOCRIT. 29.6 % (36.0-48.0); LYMPHOCYTES % 36.9 % (20.0-50.0); MEAN CORPUSCULAR VOLUME 75.5 fL (81.0-99.0); MEAN PLATELET VOLUME 8.3 fl (7.4-10.4); MONOCYTES % 8.1 % (2.0-8.0); NEUTROPHILS % 50.7 % (40.0-76.0); PLATELET 281 x1000/uL (130-400); RED BLOOD CELL COUNT 3.93 mill/uL (4.2-5.4); RED CELL DISTRIBUTION WIDTH 26.5 % (11.6-14.6)
[2018-07-20 08:02] LABS: PHOSPHORUS 4.7 mg/dL (2.5-4.9)
[2018-07-20] MEDS: POTASSIUM CHLORIDE 20MEQ/PACKET PO SCH (08:47)
[2018-07-20] MEDS: POTASSIUM CHLORIDE INJ 40 MEQ in DEXTROSE 5% WATER 1,000 ML IV SCH ×2 (08:47→12:14)
[2018-07-20] MEDS: HYDROCORTISONE 20MG TABLET PO SCH (08:47)
[2018-07-20] MEDS: THIAMINE HCL 100MG TABLET PO SCH ×2 (08:48→18:05)
[2018-07-20] MEDS: LEVOTHYROXINE SODIUM 137MCG TABLET PO SCH (08:48)
[2018-07-20] MEDS: DESMOPRESSIN ACETATE 0.1MG TABLET PO SCH ×2 (08:48→18:08)
[2018-07-20] MEDS: POLYVINYL ALCOHOL OPHTH DROPS 15ML BOTHEYE SCH ×2 (08:54→17:00)
[2018-07-20] MEDS: PANTOT AC/MIN OIL/PET HY-PHL OINT (AQUAPHOR) TOP SCH (08:54)
[2018-07-20] MEDS: NYSTATIN 100,000 UNITS/GM CREAM 15GM TOP SCH (08:55)
[2018-07-20] MEDS: CLOTRIMAZOLE 10MG TROCHE MM SCH ×4 (08:56→20:32)
[2018-07-20] MEDS: BROMOCRIPTINE MESYLATE 2.5 MG TABLET PO SCH (08:56)
[2018-07-20 09:05] LABS: BG BASE EXCESS -0.2 mmol/L (-2.0-2.0); BG CARBOXYHEMOGLOBIN 0.3 % (0.5-1.5); BG DEOXYHEMOGLOBIN 3.9 % (0.0-5.0); BG FRACTION INSPIRED OXYGEN 40; BG HCO3 ACT 26.2 mmol/L (22.0-26.0); BG METHEMOGLOBIN 0.3 % (0.0-1.5); BG OXYGEN SATURATION 96.1 % (92.0-98.5); BG OXYHEMOGLOBIN 95.5 % (94.0-97.0); BG PCO2 51.1 mmHg (35.0-45.0); BG PH 7.327 (7.350-7.450); BG PO2 87.3 mmHg (75.0-100.0); BG PRESSURE SUPPORT 8; BG SAMPLE SITE RIGHT RADIAL; BG TOTAL HEMOGLOBIN 9.9 g/dL (12.0-18.0); BG VENT MODE VENT - CPAP
[2018-07-21] VITALS (12 sets, daily range): BP systolic 106–119; BP diastolic 54–75
[2018-07-21] MEDS: IPRATROPIUM/ALBUTEROL 0.5-3(2.5)MG/3ML NEB HHN SCH ×3 (01:38→21:26)
[2018-07-21] MEDS: POTASSIUM CHLORIDE INJ 40 MEQ in DEXTROSE 5% WATER 1,000 ML IV SCH ×2 (03:54→14:45)
[2018-07-21] MEDS: CEFEPIME 1,000 MG in DEXTROSE 5% WATER 50 ML IV SCH ×2 (05:06→17:06)
[2018-07-21] MEDS: NYSTATIN POWDER 15GM TOP SCH ×3 (05:06→22:00)
[2018-07-21] MEDS: METOCLOPRAMIDE HCL 10MG/2ML VIAL IV SCH ×3 (05:06→17:06)
[2018-07-21] MEDS: CLOTRIMAZOLE 10MG TROCHE MM SCH ×4 (09:00→22:00)
[2018-07-21] MEDS: POTASSIUM CHLORIDE 20MEQ/PACKET PO SCH (09:39)
[2018-07-21] MEDS: DESMOPRESSIN ACETATE 0.1MG TABLET PO SCH ×2 (09:39→17:06)
[2018-07-21] MEDS: HYDROCORTISONE 20MG TABLET PO SCH (09:40)
[2018-07-21] MEDS: THIAMINE HCL 100MG TABLET PO SCH ×2 (09:40→17:06)
[2018-07-21] MEDS: LEVOTHYROXINE SODIUM 137MCG TABLET PO SCH (09:40)
[2018-07-21] MEDS: BROMOCRIPTINE MESYLATE 2.5 MG TABLET PO SCH (09:40)
[2018-07-21] MEDS: POLYVINYL ALCOHOL OPHTH DROPS 15ML BOTHEYE SCH ×2 (09:41→17:07)
[2018-07-21] MEDS: PANTOT AC/MIN OIL/PET HY-PHL OINT (AQUAPHOR) TOP SCH (09:41)
[2018-07-21 10:32] LABS: BG BASE EXCESS 4.7 mmol/L (-2.0-2.0); BG CARBOXYHEMOGLOBIN 0.6 % (0.5-1.5); BG DEOXYHEMOGLOBIN 4.5 % (0.0-5.0); BG FRACTION INSPIRED OXYGEN 40; BG HCO3 ACT 31.3 mmol/L (22.0-26.0); BG METHEMOGLOBIN 0.2 % (0.0-1.5); BG OXYGEN SATURATION 95.5 % (92.0-98.5); BG OXYHEMOGLOBIN 94.7 % (94.0-97.0); BG PCO2 57.4 mmHg (35.0-45.0); BG PH 7.354 (7.350-7.450); BG PO2 81.2 mmHg (75.0-100.0); BG PRESSURE SUPPORT 8; BG SAMPLE SITE LEFT RADIAL; BG TOTAL HEMOGLOBIN 10.2 g/dL (12.0-18.0); BG VENT MODE VENT - CPAP
[2018-07-22] VITALS (12 sets, daily range): BP systolic 101–156; BP diastolic 58–84
[2018-07-22] MEDS: METOCLOPRAMIDE HCL 10MG/2ML VIAL IV SCH ×4 (00:14→18:41)
[2018-07-22] MEDS: IPRATROPIUM/ALBUTEROL 0.5-3(2.5)MG/3ML NEB HHN SCH ×4 (02:32→20:46)
[2018-07-22] MEDS: POTASSIUM CHLORIDE INJ 40 MEQ in DEXTROSE 5% WATER 1,000 ML IV SCH ×2 (05:02→20:22)
[2018-07-22] MEDS: CEFEPIME 1,000 MG in DEXTROSE 5% WATER 50 ML IV SCH ×2 (06:00→18:40)
[2018-07-22] MEDS: NYSTATIN POWDER 15GM TOP SCH ×3 (06:02→20:49)
[2018-07-22] MEDS: BROMOCRIPTINE MESYLATE 2.5 MG TABLET PO SCH (08:36)
[2018-07-22] MEDS: DESMOPRESSIN ACETATE 0.1MG TABLET PO SCH ×2 (08:36→18:40)
[2018-07-22] MEDS: CLOTRIMAZOLE 10MG TROCHE MM SCH ×4 (08:36→20:21)
[2018-07-22] MEDS: POTASSIUM CHLORIDE 20MEQ/PACKET PO SCH (08:36)
[2018-07-22] MEDS: THIAMINE HCL 100MG TABLET PO SCH ×2 (08:36→18:40)
[2018-07-22] MEDS: HYDROCORTISONE 20MG TABLET PO SCH (08:36)
[2018-07-22] MEDS: PANTOT AC/MIN OIL/PET HY-PHL OINT (AQUAPHOR) TOP SCH (08:37)
[2018-07-22] MEDS: POLYVINYL ALCOHOL OPHTH DROPS 15ML BOTHEYE SCH ×2 (08:37→18:39)
[2018-07-22] MEDS: LEVOTHYROXINE SODIUM 137MCG TABLET PO SCH (08:37)
[2018-07-22 10:19] LABS: BASOPHILS % 0.8 % (0.0-2.0); EOSINOPHILS % 4.3 % (0.0-5.0); HEMATOCRIT. 30.4 % (36.0-48.0); HEMOGLOBIN. 9.3 g/dL (12.0-16.0); LYMPHOCYTES % 37.2 % (20.0-50.0); MEAN CORPUSCULAR HEMOGLOBIN 22.8 pg (28.0-32.0); MEAN CORPUSCULAR VOLUME 74.9 fL (81.0-99.0); MEAN PLATELET VOLUME 8.8 fl (7.4-10.4); MONOCYTES % 8.6 % (2.0-8.0); NEUTROPHILS % 49.1 % (40.0-76.0); PLATELET 264 x1000/uL (130-400); RED BLOOD CELL COUNT 4.06 mill/uL (4.2-5.4); RED CELL DISTRIBUTION WIDTH 26.4 % (11.6-14.6)
[2018-07-22 10:28] LABS: CHLORIDE 108 mEq/L (98-107)
[2018-07-22 10:35] LABS: PHOSPHORUS 4.6 mg/dL (2.5-4.9)
[2018-07-22 10:38] LABS: CREATINE KINASE 72 IU/L (26-192)
[2018-07-23] VITALS (10 sets, daily range): BP systolic 110–136; BP diastolic 66–76
[2018-07-23] MEDS: METOCLOPRAMIDE HCL 10MG/2ML VIAL IV SCH ×4 (01:04→19:01)
[2018-07-23] MEDS: IPRATROPIUM/ALBUTEROL 0.5-3(2.5)MG/3ML NEB HHN SCH ×3 (02:27→19:53)
[2018-07-23] MEDS: CEFEPIME 1,000 MG in DEXTROSE 5% WATER 50 ML IV SCH ×2 (05:44→19:01)
[2018-07-23] MEDS: NYSTATIN POWDER 15GM TOP SCH ×3 (05:45→19:03)
[2018-07-23 06:50] LABS: BASOPHILS % 0.9 % (0.0-2.0); EOSINOPHILS % 4.2 % (0.0-5.0); HEMATOCRIT. 30.3 % (36.0-48.0); HEMOGLOBIN. 9.3 g/dL (12.0-16.0); LYMPHOCYTES % 34.1 % (20.0-50.0); MEAN CORPUSCULAR HEMOGLOBIN 22.8 pg (28.0-32.0); MEAN CORPUSCULAR VOLUME 74.1 fL (81.0-99.0); MEAN PLATELET VOLUME 8.4 fl (7.4-10.4); MONOCYTES % 8.3 % (2.0-8.0); NEUTROPHILS % 52.5 % (40.0-76.0); PLATELET 243 x1000/uL (130-400); RED BLOOD CELL COUNT 4.09 mill/uL (4.2-5.4); RED CELL DISTRIBUTION WIDTH 25.8 % (11.6-14.6)
[2018-07-23 07:32] LABS: CHLORIDE 106 mEq/L (98-107)
[2018-07-23 07:39] LABS: PHOSPHORUS 4.4 mg/dL (2.5-4.9)
[2018-07-23] MEDS: DESMOPRESSIN ACETATE 0.1MG TABLET PO SCH ×2 (09:37→19:01)
[2018-07-23] MEDS: CLOTRIMAZOLE 10MG TROCHE MM SCH ×4 (09:38→20:11)
[2018-07-23] MEDS: HYDROCORTISONE 20MG TABLET PO SCH (09:39)
[2018-07-23] MEDS: ACETAMINOPHEN 650MG/20.3ML UDC NG PRN (09:40)
[2018-07-23] MEDS: BROMOCRIPTINE MESYLATE 2.5 MG TABLET PO SCH (09:40)
[2018-07-23] MEDS: LEVOTHYROXINE SODIUM 137MCG TABLET PO SCH (09:40)
[2018-07-23] MEDS: THIAMINE HCL 100MG TABLET PO SCH ×2 (10:09→19:02)
[2018-07-23] MEDS: POTASSIUM CHLORIDE 20MEQ/PACKET PO SCH (10:10)
[2018-07-23] MEDS: PANTOT AC/MIN OIL/PET HY-PHL OINT (AQUAPHOR) TOP SCH (10:10)
[2018-07-23] MEDS: POLYVINYL ALCOHOL OPHTH DROPS 15ML BOTHEYE SCH ×2 (10:12→19:07)
[2018-07-23] MEDS ORDERED: BISACODYL 5MG TABLET PO PRN (15:45)
[2018-07-23] MEDS ORDERED: DOCUSATE SODIUM SUGAR FREE 100MG/10ML UDC PO SCH (17:00)
[2018-07-23] MEDS ORDERED: FERROUS SULFATE 300MG/5ML UDC PO SCH (18:00)
[2018-07-23 18:40] LABS: PLATELET ESTIMATE NORMAL
== END 2018-07-23 23:38 | DRG 4 ==
LOC: ER 11:59 → MICUSO 14:08 → EDBEDREQ 14:11 → EDBEDREQSVC 14:11 → EDBEDREQ 14:14 → ENRESERV 15:31 → CANRESERV 15:47 → ENRESERV 15:47 → 5EST 07-13 22:40
PROVIDERS: ADMIT Internal Medicine; ATTEND Internal Medicine
PROC: 5A1955Z Respiratory Ventilation, Greater than 96 Consecutive Hours (ICD-10-PCS; principal; 2018-07-04)
PROC: 02HV33Z Insertion of Infusion Device into Superior Vena Cava, Percutaneous Approach (ICD-10-PCS; 2018-07-04)
PROC: B548ZZA Ultrasonography of Superior Vena Cava, Guidance (ICD-10-PCS; 2018-07-04)
PROC: B5181ZA Fluoroscopy of Superior Vena Cava using Low Osmolar Contrast, Guidance (ICD-10-PCS; 2018-07-04)
PROC: 0BH17EZ Insertion of Endotracheal Airway into Trachea, Via Natural or Artificial Opening (ICD-10-PCS; 2018-07-04)
PROC: 4A00X4Z Measurement of Central Nervous Electrical Activity, External Approach (ICD-10-PCS; 2018-07-06)
PROC: 30233N1 Transfusion of Nonautologous Red Blood Cells into Peripheral Vein, Percutaneous Approach (ICD-10-PCS; 2018-07-10)
PROC: 0B110F4 Bypass Trachea to Cutaneous with Tracheostomy Device, Open Approach (ICD-10-PCS; 2018-07-12)
PROC: 0DH63UZ Insertion of Feeding Device into Stomach, Percutaneous Approach (ICD-10-PCS; 2018-07-12)
PROC: 02HV33Z Insertion of Infusion Device into Superior Vena Cava, Percutaneous Approach (ICD-10-PCS; 2018-07-16)
PROC: B548ZZA Ultrasonography of Superior Vena Cava, Guidance (ICD-10-PCS; 2018-07-16)
PROC: B5181ZA Fluoroscopy of Superior Vena Cava using Low Osmolar Contrast, Guidance (ICD-10-PCS; 2018-07-16)
DX: A41.9 Sepsis, unspecified organism (principal); R65.21 Severe sepsis with septic shock; G92 Toxic encephalopathy; J96.02 Acute respiratory failure with hypercapnia; J69.0 Pneumonitis due to inhalation of food and vomit; N17.0 Acute kidney failure with tubular necrosis; N39.0 Urinary tract infection, site not specified; I69.351 Hemiplegia and hemiparesis following cerebral infarction affecting right dominant side; M62.82 Rhabdomyolysis; B37.0 Candidal stomatitis; E23.2 Diabetes insipidus; I69.354 Hemiplegia and hemiparesis following cerebral infarction affecting left non-dominant side; D50.9 Iron deficiency anemia, unspecified; E66.01 Morbid (severe) obesity due to excess calories; B95.1 Streptococcus, group B, as the cause of diseases classified elsewhere; D72.821 Monocytosis (symptomatic); E03.8 Other specified hypothyroidism; E11.9 Type 2 diabetes mellitus without complications; E83.39 Other disorders of phosphorus metabolism; H54.7 Unspecified visual loss; H57.02 Anisocoria; H66.91 Otitis media, unspecified, right ear; I50.9 Heart failure, unspecified; L83 Acanthosis nigricans; R13.12 Dysphagia, oropharyngeal phase; L30.4 Erythema intertrigo; R16.1 Splenomegaly, not elsewhere classified; L30.9 Dermatitis, unspecified; R74.0 Nonspecific elevation of levels of transaminase and lactic acid dehydrogenase [LDH]; Z68.37 Body mass index [BMI] 37.0-37.9, adult; Z82.49 Family history of ischemic heart disease and other diseases of the circulatory system; Z79.899 Other long term (current) drug therapy
CPT/HCPCS: 31500; 36415; 36569; 36573; 36600; 71045; 76770; 76937; 80048; 80061; 80202; 80305; 80320; 82270; 82375; 82550; 82553; 82805; 82962; 83036; 83540; 83550; 83605; 83721; 83735; 83880; 83930; 83935; 84100; 84134; 84145; 84146; 84439; 84443; 84478; 84481; 84484; 85027; 86850; 86900; 86920; 87015; 87045; 87070; 87077; 87427; 87449; 87493; 87804; 93005; 93970; 94003; 94640; 94667; 96365; 96375; 97110; 97162; 97166; 97530; 99291; A6261; C1725; C1769; C9113; J0690; J0692; J1170; J1650; J1720; J1940; J1956; J2060; J2250; J2405; J2543; J2597; J2704; J2765; J3010; J3370; J3480; J3490; J7030; J7040; J7050; J7060; J7070; J7620; P9016; A4315; G0480

== ENCOUNTER 2018-12-13 21:45 | Inpatient (IN) | payer MEDICARE, MEDICAID ==
[~2018-12-13] VITALS: Ht 167.6 cm; Wt 112.0 kg
[~2018-12-13 21:45] MED LIST: CHOL100062 MT; FURO20TA4 MT; HYDR5TAB MT; LEVO137T2 MT; LIP40 MT; POTA10CA42 MT; [UNRECOGNIZED DRUG - CODE] MT
[2018-12-13] MEDS ORDERED: SODIUM CHLORIDE 0.9% 1,000 ML IV ONE (23:39)
[2018-12-14] MEDS ORDERED: ONDANSETRON HCL 4MG/2ML INJ IV SCH (00:07)
[2018-12-14] MEDS ORDERED: MORPHINE SULFATE 4 MG/ML CPJ (NOT FOR IM USE) IV SCH (00:07)
[2018-12-14 00:10] LABS: BASOPHILS % 0.1 % (0.0-2.0); EOSINOPHILS % 2.5 % (0.0-5.0); HEMATOCRIT. 44.2 % (36.0-48.0); HEMOGLOBIN. 14.6 g/dL (12.0-16.0); LYMPHOCYTES % 46.1 % (20.0-50.0); MEAN CORPUSCULAR HEMOGLOBIN 27.3 pg (28.0-32.0); MONOCYTES % 11.8 % (2.0-8.0); NEUTROPHILS % 39.5 % (40.0-76.0); PLATELET 256 x1000/uL (130-400); RED BLOOD CELL COUNT 5.33 mill/uL (4.2-5.4); RED CELL DISTRIBUTION WIDTH 15.4 % (11.6-14.6)
[2018-12-14 00:14] LABS: CHLORIDE 102 mEq/L (98-107)
[2018-12-14] MEDS ORDERED: IPRATROPIUM/ALBUTEROL 0.5-3(2.5)MG/3ML NEB HHN PRN (02:30)
[2018-12-14] MEDS ORDERED: ACETAMINOPHEN 325MG TABLET PO PRN (02:30)
[2018-12-14] MEDS ORDERED: DIPHENHYDRAMINE 50MG/ML VIAL IV PRN (02:30)
[2018-12-14] MEDS ORDERED: GUAIFENESIN 200MG/10ML SUGAR FREE UDC PO PRN (02:30)
[2018-12-14] MEDS ORDERED: ENOXAPARIN 40MG/0.4ML SYR SUBCUT SCH (02:30)
[2018-12-14] MEDS ORDERED: ONDANSETRON HCL 4MG/2ML INJ IV PRN (02:30)
[2018-12-14] MEDS ORDERED: CLONIDINE 0.1MG TABLET PO PRN (02:30)
[2018-12-14] MEDS ORDERED: HYDROCORTISONE SOD SUCCINATE 100 MG/2 ML VIAL IV SCH (02:30)
[2018-12-14] MEDS ORDERED: MORPHINE SULFATE 4 MG/ML CPJ (NOT FOR IM USE) IV PRN (02:45)
[2018-12-14] MEDS ORDERED: IOHEXOL-300 100 ML BOTTLE ONE (03:22)
[2018-12-14 04:32] LABS: CLARITY URINE CLEAR (CLEAR); COLOR URINE YELLOW (YELLOW); KETONES URINE NEGATIVE (NEGATIVE); LEUKOCYTE ESTERASE URINE NEGATIVE (NEGATIVE); NITRITE URINE NEGATIVE (NEGATIVE); OCCULT BLOOD URINE TRACE (NEGATIVE); PH URINE 5.5 (4.5-8.0); PROTEIN URINE 1+ (NEGATIVE); SPECIFIC GRAVITY URINE 1.035 (1.005-1.030); UROBILINOGEN URINE 0.2 E.U./dL (0.2-1.0)
[2018-12-14] MEDS ORDERED: POTASSIUM CHLORIDE INJ 40 MEQ in DEXT 5% WATER 250 ML IV SCH (06:00)
[2018-12-14] MEDS: SODIUM CHLORIDE 0.9% 1,000 ML IV SCH ×2 (06:51→19:20)
[2018-12-14 07:17] VITALS: BP 113/66
[2018-12-14 08:00] VITALS: BP 131/60
[2018-12-14] MEDS: ENOXAPARIN 30MG/0.3ML SYR SUBCUT SCH ×2 (10:58→23:06)
[2018-12-14] MEDS: FAMOTIDINE 20MG/2ML VIAL IV SCH ×2 (10:58→23:05)
[2018-12-14] MEDS: LEVOTHYROXINE SODIUM 137MCG TABLET PO SCH (10:59)
[2018-12-14] MEDS: HYDROCORTISONE 10MG TABLET PO SCH (10:59)
[2018-12-14 11:47] VITALS: BP 131/60
[2018-12-14 12:00] VITALS: BP 116/74
[2018-12-14] MEDS ORDERED: ALBU05 NEB (14:20)
[2018-12-14] MEDS ORDERED: BROM2.5T3 PO (14:20)
[2018-12-14] MEDS ORDERED: METO-293 MT (14:20)
[2018-12-14] MEDS ORDERED: FAMO-135 MT (14:20)
[2018-12-14] MEDS ORDERED: MOM MT (14:20)
[2018-12-14 16:00] VITALS: BP 144/79
[2018-12-14] MEDS: LEVOFLOXACIN 500MG PREMIX 100 ML IV SCH (17:23)
[2018-12-14 20:00] VITALS: BP 135/76
[2018-12-14] MEDS ORDERED: DESMOPRESSIN ACETATE 0.1MG TABLET PO SCH (21:00)
[2018-12-15] VITALS: BP 123/64
[2018-12-15 04:00] VITALS: BP 114/58
[2018-12-15] MEDS: LEVOTHYROXINE SODIUM 137MCG TABLET PO SCH (06:22)
[2018-12-15 08:01] LABS: BASOPHILS % 0.1 % (0.0-2.0); HEMATOCRIT. 35.3 % (36.0-48.0); HEMOGLOBIN. 11.5 g/dL (12.0-16.0); LYMPHOCYTES % 48.8 % (20.0-50.0); MEAN CORPUSCULAR HEMOGLOBIN 27.1 pg (28.0-32.0); MEAN CORPUSCULAR VOLUME 83.5 fL (81.0-99.0); MEAN PLATELET VOLUME 7.8 fl (7.4-10.4); MONOCYTES % 10.7 % (2.0-8.0); NEUTROPHILS % 36.4 % (40.0-76.0); PLATELET 200 x1000/uL (130-400); RED BLOOD CELL COUNT 4.23 mill/uL (4.2-5.4); RED CELL DISTRIBUTION WIDTH 15.5 % (11.6-14.6)
[2018-12-15 08:28] VITALS: BP 109/57
[2018-12-15 08:31] LABS: CHLORIDE 110 mEq/L (98-107)
[2018-12-15] MEDS: ENOXAPARIN 30MG/0.3ML SYR SUBCUT SCH ×2 (08:54→21:53)
[2018-12-15] MEDS: SODIUM CHLORIDE 0.9% 1,000 ML IV SCH (08:55)
[2018-12-15] MEDS: HYDROCORTISONE 10MG TABLET PO SCH ×2 (08:55→17:54)
[2018-12-15] MEDS: FAMOTIDINE 20MG/2ML VIAL IV SCH ×2 (08:55→21:52)
[2018-12-15 12:25] VITALS: BP 90/52
[2018-12-15 16:19] VITALS: BP 108/67
[2018-12-15] MEDS: LEVOFLOXACIN 500MG PREMIX 100 ML IV SCH (16:28)
[2018-12-15] MEDS: DESMOPRESSIN ACETATE 0.1MG TABLET PO SCH (17:54)
[2018-12-15 20:48] VITALS: BP 116/77
[2018-12-16 00:51] VITALS: BP 117/63
[2018-12-16 04:00] VITALS: BP 102/50
[2018-12-16] MEDS: LEVOTHYROXINE SODIUM 137MCG TABLET PO SCH (07:05)
[2018-12-16] MEDS: DESMOPRESSIN ACETATE 0.1MG TABLET PO SCH ×2 (07:06→18:09)
[2018-12-16 08:45] VITALS: BP 123/48
[2018-12-16] MEDS: FAMOTIDINE 20MG/2ML VIAL IV SCH (09:28)
[2018-12-16] MEDS: ENOXAPARIN 30MG/0.3ML SYR SUBCUT SCH (09:29)
[2018-12-16] MEDS: HYDROCORTISONE 10MG TABLET PO SCH ×2 (09:29→16:53)
[2018-12-16 12:28] VITALS: BP 111/64
[2018-12-16 16:18] VITALS: BP 123/72
[2018-12-16] MEDS: LEVOFLOXACIN 500MG TABLET PO SCH (16:51)
[2018-12-16] MEDS: BROMOCRIPTINE MESYLATE 2.5 MG TABLET PO SCH (16:51)
[2018-12-16 20:00] VITALS: BP 141/83
[2018-12-17] VITALS: BP 114/47
[2018-12-17 00:31] VITALS: BP 114/47
[2018-12-17 04:00] VITALS: BP 136/82
[2018-12-17] MEDS: FAMOTIDINE 20MG TABLET PO SCH ×2 (04:22→09:24)
[2018-12-17] MEDS: ENOXAPARIN 30MG/0.3ML SYR SUBCUT SCH ×2 (04:23→09:24)
[2018-12-17] MEDS: DESMOPRESSIN ACETATE 0.1MG TABLET PO SCH ×2 (06:53→18:06)
[2018-12-17] MEDS: LEVOTHYROXINE SODIUM 137MCG TABLET PO SCH (06:53)
[2018-12-17 08:00] VITALS: BP 122/68
[2018-12-17] MEDS: HYDROCORTISONE 10MG TABLET PO SCH ×2 (09:24→16:17)
[2018-12-17] MEDS: BROMOCRIPTINE MESYLATE 2.5 MG TABLET PO SCH (09:24)
[2018-12-17 12:00] VITALS: BP 111/67
[2018-12-17] MEDS: LEVOFLOXACIN 500MG TABLET PO SCH (16:17)
[2018-12-17 16:46] VITALS: BP 141/70
== END 2018-12-17 18:49 | DRG 446 ==
LOC: ER 21:45 → EDBEDREQ 23:47 → 6WST 12-14 01:47 → EDBEDREQTM 12-14 01:53 → EDBEDREQDT 12-14 01:53 → EDBEDREQ 12-14 01:53 → ENRESERV 12-14 03:06
PROVIDERS: ADMIT Internal Medicine; ATTEND Internal Medicine
DX: K80.10 Calculus of gallbladder with chronic cholecystitis without obstruction (principal); E66.01 Morbid (severe) obesity due to excess calories; K21.9 Gastro-esophageal reflux disease without esophagitis; E11.9 Type 2 diabetes mellitus without complications; Z86.73 Personal history of transient ischemic attack (TIA), and cerebral infarction without residual deficits; Z68.39 Body mass index [BMI] 39.0-39.9, adult; Z82.49 Family history of ischemic heart disease and other diseases of the circulatory system; Z79.84 Long term (current) use of oral hypoglycemic drugs
CPT/HCPCS: 36415; 71045; 74177; 76705; 80048; 81003; 83605; 83735; 93970; 96374; 99285; J1650; J1956; J2270; J2405; J3480; J3490; J7040; J7060; Q9967; A4315

== ENCOUNTER 2019-07-20 03:02 | Emergency (ER) | payer MEDICARE, MEDICAID ==
[~2019-07-20] VITALS: Ht 167.6 cm; Wt 133.7 kg
[~2019-07-20 03:02] MED LIST changes: +ALBU05 NEB; +FAMO-135 MT; -FURO20TA4 MT; -LIP40 MT; +METO-293 MT; +MOM MT; -POTA10CA42 MT; +[UNRECOGNIZED DRUG - CODE] PO
[2019-07-20 03:27] LABS: BASOPHILS % 0.4 % (0.0-2.0); EOSINOPHILS % 3.7 % (0.0-5.0); HEMATOCRIT. 36.8 % (36.0-48.0); LYMPHOCYTES % 40.3 % (20.0-50.0); MEAN CORPUSCULAR HEMOGLOBIN 25.8 pg (28.0-32.0); MEAN PLATELET VOLUME 7.2 fl (7.4-10.4); MONOCYTES % 9.2 % (2.0-8.0); NEUTROPHILS % 46.4 % (40.0-76.0); PLATELET 199 x1000/uL (130-400); RED BLOOD CELL COUNT 4.66 mill/uL (4.2-5.4); RED CELL DISTRIBUTION WIDTH 17.4 % (11.6-14.6)
[2019-07-20 03:38] LABS: CHLORIDE 100 mEq/L (98-107)
[2019-07-20 03:44] LABS: ETHANOL BLOOD < 10 mg/dL
[2019-07-20 03:47] LABS: LDL CHOLESTEROL 109 mg/dL (5-100)
[2019-07-20] MEDS ORDERED: IOHEXOL-350 100 ML BOTTLE ONE ×2 (03:54→03:55)
[2019-07-20] MEDS ORDERED: ASPIRIN 325MG TABLET PO ONE (04:30)
[2019-07-20 06:02] LABS: *AMPHETAMINES SCREEN URINE NEGATIVE (NEGATIVE); *BARBITURATES SCREEN URINE NEGATIVE (NEGATIVE); *BENZODIAZEPINES SCREEN URINE NEGATIVE (NEGATIVE)
[2019-07-20 06:03] LABS: *COCAINE SCREEN URINE NEGATIVE (NEGATIVE); METHADONE URINE SCREEN NEGATIVE (NEGATIVE); OPIATES URINE SCREEN NEGATIVE (NEGATIVE); PHENCYCLIDINE URINE SCREEN NEGATIVE (NEGATIVE)
[2019-07-20 06:04] LABS: CANNABINOID URINE SCREEN NEGATIVE (NEGATIVE)
[2019-07-20 09:06] LABS: CLARITY URINE CLEAR (CLEAR); COLOR URINE YELLOW (YELLOW); KETONES URINE NEGATIVE (NEGATIVE); LEUKOCYTE ESTERASE URINE NEGATIVE (NEGATIVE); NITRITE URINE NEGATIVE (NEGATIVE); OCCULT BLOOD URINE 1+ (NEGATIVE); PH URINE 6.5 (4.5-8.0); PROTEIN URINE NEGATIVE (NEGATIVE); SPECIFIC GRAVITY URINE 1.013 (1.005-1.030); UROBILINOGEN URINE 0.2 E.U./dL (0.2-1.0)
[2019-07-20 09:44] VITALS: BP 149/62
== END 2019-07-20 10:15 | disposition short-term general hospital (02) ==
LOC: ER 03:02
DX: R53.1 Weakness (principal); E11.9 Type 2 diabetes mellitus without complications; G31.89 Other specified degenerative diseases of nervous system; E03.9 Hypothyroidism, unspecified; Z79.899 Other long term (current) drug therapy
CPT/HCPCS: 36415; 70450; 70496; 71045; 80053; 80305; 80320; 81003; 81025; 82962; 83721; 84484; 85025; 85610; 93005; 93971; 99285; Q9967; G0480

== ENCOUNTER 2020-06-26 11:31 | Emergency (ER) | payer MEDICARE, MEDICAID ==
[~2020-06-26] VITALS: Ht 177.8 cm; Wt 113.0 kg
[2020-06-26] MEDS ORDERED: ACETAMINOPHEN 325MG TABLET PO ONE (12:00)
[2020-06-26] MEDS ORDERED: TOPUD MT (14:08)
[2020-06-26 15:45] VITALS: BP 134/77
== END 2020-06-26 16:15 | disposition home or self-care (01) ==
LOC: ER 11:31
DX: S73.101A Unspecified sprain of right hip, initial encounter (principal); M43.17 Spondylolisthesis, lumbosacral region; E11.9 Type 2 diabetes mellitus without complications; Z68.30 Body mass index [BMI] 30.0-30.9, adult; Z79.899 Other long term (current) drug therapy; Z98.890 Other specified postprocedural states; Z86.73 Personal history of transient ischemic attack (TIA), and cerebral infarction without residual deficits; Z86.39 Personal history of other endocrine, nutritional and metabolic disease; W18.30XA Fall on same level, unspecified, initial encounter; Y93.89 Activity, other specified; Y92.89 Other specified places as the place of occurrence of the external cause; Y99.8 Other external cause status
CPT/HCPCS: 72100; 73502; 73552; 99284

== ENCOUNTER 2020-09-10 13:48 | Emergency (ER) | payer MEDICARE, MEDICAID ==
[~2020-09-10] VITALS: Ht 167.6 cm; Wt 91.0 kg
[~2020-09-10 13:48] MED LIST changes: +TOPUD MT
[2020-09-10] MEDS ORDERED: IOHEXOL-350 100 ML BOTTLE ONE (15:11)
[2020-09-10 15:13] LABS: BASOPHILS % 0.5 % (0.0-2.0); EOSINOPHILS % 3.3 % (0.0-5.0); HEMATOCRIT. 32.4 % (36.0-48.0); HEMOGLOBIN. 10.7 g/dL (12.0-16.0); LYMPHOCYTES % 39.9 % (20.0-50.0); MEAN CORPUSCULAR HEMOGLOBIN 25.6 pg (28.0-32.0); MEAN CORPUSCULAR VOLUME 77.6 fL (81.0-99.0); MEAN PLATELET VOLUME 7.9 fl (7.4-10.4); MONOCYTES % 11.5 % (2.0-8.0); NEUTROPHILS % 44.8 % (40.0-76.0); PLATELET 147 x1000/uL (130-400); RED BLOOD CELL COUNT 4.17 mill/uL (4.2-5.4); RED CELL DISTRIBUTION WIDTH 16.9 % (11.6-14.6)
[2020-09-10] MEDS ORDERED: ACETAMINOPHEN 325MG TABLET PO ONE (15:15)
[2020-09-10 15:19] LABS: CHLORIDE 103 mEq/L (98-107)
[2020-09-10 15:20] LABS: INR 1.1; PROTHROMBIN TIME 11.8 sec (9.6-11.0)
[2020-09-10 15:25] LABS: ETHANOL BLOOD < 10 mg/dL
[2020-09-10 15:27] LABS: LDL CHOLESTEROL 145 mg/dL (5-100)
[2020-09-10 16:00] LABS: CLARITY URINE CLEAR (CLEAR); COLOR URINE YELLOW (YELLOW); KETONES URINE NEGATIVE (NEGATIVE); LEUKOCYTE ESTERASE URINE NEGATIVE (NEGATIVE); NITRITE URINE NEGATIVE (NEGATIVE); OCCULT BLOOD URINE 1+ (NEGATIVE); PH URINE 6.5 (4.5-8.0); PROTEIN URINE NEGATIVE (NEGATIVE); SPECIFIC GRAVITY URINE 1.017 (1.005-1.030)
[2020-09-10] MEDS ORDERED: ASPIRIN 325MG EC TABLET PO ONE (16:00)
[2020-09-10 16:15] LABS: *AMPHETAMINES SCREEN URINE NEGATIVE (NEGATIVE); *BARBITURATES SCREEN URINE NEGATIVE (NEGATIVE); *BENZODIAZEPINES SCREEN URINE NEGATIVE (NEGATIVE); *COCAINE SCREEN URINE NEGATIVE (NEGATIVE); METHADONE URINE SCREEN NEGATIVE (NEGATIVE); OPIATES URINE SCREEN NEGATIVE (NEGATIVE)
[2020-09-10 16:17] LABS: PHENCYCLIDINE URINE SCREEN NEGATIVE (NEGATIVE)
[2020-09-10 16:29] LABS: CANNABINOID URINE SCREEN NEGATIVE (NEGATIVE)
[2020-09-10 19:24] VITALS: BP 142/78
== END 2020-09-10 19:28 | disposition short-term general hospital (02) ==
LOC: ER 13:48 → CANBEDREQ 17:45 → ER 19:28
DX: I63.9 Cerebral infarction, unspecified (principal); R47.1 Dysarthria and anarthria; J98.11 Atelectasis
CPT/HCPCS: 36415; 70450; 70496; 70498; 71045; 80053; 80305; 80320; 81003; 82962; 83721; 84484; 85025; 85610; 93005; 99291; Q9967; G0480

== ENCOUNTER 2021-11-18 12:55 | Inpatient (IN) | payer MEDICARE, MEDICAID ==
[~2021-11-18] VITALS: Ht 167.6 cm; Wt 127.0 kg
[2021-11-18] VITALS (23 sets, daily range): BP systolic 70–125; BP diastolic 37–76
[~2021-11-18 12:55] MED LIST changes: +ETOMIDATE 2MG/ML 10ML VIAL IV ONE; +SODIUM CHLORIDE 0.9% 10ML VIAL ONE; +VECURONIUM BROMIDE 10 MG/VIAL IV ONE
[2021-11-18] MEDS ORDERED: SODIUM CHLORIDE 0.9% 1,000 ML IV ONE (13:15)
[2021-11-18] MEDS ORDERED: ETOMIDATE 2MG/ML 10ML VIAL IV ONE (13:15)
[2021-11-18] MEDS ORDERED: VECURONIUM BROMIDE 10 MG/VIAL IV ONE (13:15)
[2021-11-18 13:27] LABS: BASOPHILS % 0.4 % (0.0-2.0); EOSINOPHILS % 2.1 % (0.0-5.0); HEMATOCRIT. 42.5 % (36.0-48.0); HEMOGLOBIN. 13.2 g/dL (12.0-16.0); LYMPHOCYTES % 44.7 % (20.0-50.0); MEAN CORPUSCULAR HEMOGLOBIN 27.6 pg (28.0-32.0); MEAN CORPUSCULAR VOLUME 88.5 fL (81.0-99.0); MEAN PLATELET VOLUME 8.5 fl (7.4-10.4); MONOCYTES % 9.6 % (2.0-8.0); NEUTROPHILS % 43.2 % (40.0-76.0); PLATELET 184 x1000/uL (130-400); RED CELL DISTRIBUTION WIDTH 16.2 % (11.6-14.6)
[2021-11-18] MEDS ORDERED: MIDAZOLAM HCL 100 MG in DEXT 5% WATER 80 ML IV ONE (13:30)
[2021-11-18 13:48] LABS: BG BASE EXCESS 0.3 mmol/L (-2.0-2.0); BG CARBOXYHEMOGLOBIN 1.3 % (0.5-1.5); BG DEOXYHEMOGLOBIN 6.6 % (0.0-5.0); BG HCO3 ACT 29.1 mmol/L (22.0-26.0); BG METHEMOGLOBIN 0.3 % (0.0-1.5); BG OXYGEN SATURATION 93.3 % (92.0-98.5); BG OXYHEMOGLOBIN 91.8 % (94.0-97.0); BG PCO2 67.1 mmHg (35.0-45.0); BG PH 7.255 (7.350-7.450); BG PO2 75.3 mmHg (75.0-100.0); BG SAMPLE SITE RIGHT BRACHIAL; BG TOTAL HEMOGLOBIN 13.3 g/dL (12.0-18.0); BG VENT MODE VENT - AC
[2021-11-18] MEDS ORDERED: NOREPINEPHRINE 8MG/250ML PMX 250 ML IV STA (13:53)
[2021-11-18 13:59] LABS: CHLORIDE 105 mEq/L (98-107)
[2021-11-18 14:10] LABS: CREATINE KINASE 168 IU/L (26-192); ETHANOL BLOOD < 10 mg/dL
[2021-11-18] MEDS ORDERED: MIDAZOLAM 100MG/100ML PMX 100 ML IV SCH (14:15)
[2021-11-18] MEDS ORDERED: LIDOCAINE HCL 1% 30ML VIAL (10MG/ML) ONE (14:24)
[2021-11-18 15:14] LABS: BG BASE EXCESS 2.7 mmol/L (-2.0-2.0); BG CARBOXYHEMOGLOBIN 0.8 % (0.5-1.5); BG DEOXYHEMOGLOBIN 1.8 % (0.0-5.0); BG METHEMOGLOBIN 0.2 % (0.0-1.5); BG OXYGEN SATURATION 98.2 % (92.0-98.5); BG OXYHEMOGLOBIN 97.2 % (94.0-97.0); BG PCO2 40.5 mmHg (35.0-45.0); BG PH 7.442 (7.350-7.450); BG PO2 105.9 mmHg (75.0-100.0); BG SAMPLE SITE RIGHT RADIAL; BG TOTAL HEMOGLOBIN 14.5 g/dL (12.0-18.0); BG VENT MODE VENT - AC
[2021-11-18] MEDS ORDERED: HYDROCORTISONE SOD SUCCINATE 100 MG/2 ML VIAL IV ONE (15:15)
[2021-11-18 16:06] LABS: CLARITY URINE CLOUDY (CLEAR); COLOR URINE YELLOW (YELLOW); KETONES URINE NEGATIVE (NEGATIVE); LEUKOCYTE ESTERASE URINE 3+ (NEGATIVE); NITRITE URINE NEGATIVE (NEGATIVE); OCCULT BLOOD URINE 1+ (NEGATIVE); PROTEIN URINE 2+ (NEGATIVE); SPECIFIC GRAVITY URINE 1.006 (1.005-1.030)
[2021-11-18 16:25] LABS: *AMPHETAMINES SCREEN URINE NEGATIVE (NEGATIVE); *BARBITURATES SCREEN URINE NEGATIVE (NEGATIVE); *BENZODIAZEPINES SCREEN URINE NEGATIVE (NEGATIVE); *COCAINE SCREEN URINE NEGATIVE (NEGATIVE); CANNABINOID URINE SCREEN NEGATIVE (NEGATIVE); METHADONE URINE SCREEN NEGATIVE (NEGATIVE); OPIATES URINE SCREEN NEGATIVE (NEGATIVE); PHENCYCLIDINE URINE SCREEN NEGATIVE (NEGATIVE)
[2021-11-18] MEDS: PANTOPRAZOLE SODIUM 40 MG/VIAL IV SCH (16:30)
[2021-11-18] MEDS ORDERED: NOREPINEPHRINE 8 MG in DEXT 5% WATER 242 ML IV PRN ×2 (16:30→18:15)
[2021-11-18] MEDS ORDERED: IPRATROPIUM/ALBUTEROL 0.5-3(2.5)MG/3ML NEB HHN PRN (16:30)
[2021-11-18] MEDS ORDERED: FENTANYL CITRATE/PF 2,500 MCG in SODIUM CHLORIDE 0.9% 200 ML IV PRN (16:30)
[2021-11-18] MEDS ORDERED: PHENYLEPHRINE 100 MG in DEXT 5% WATER 240 ML IV PRN (16:30)
[2021-11-18] MEDS ORDERED: MIDAZOLAM HCL 100 MG in SODIUM CHLORIDE 0.9% 80 ML IV PRN ×2 (16:30→18:00)
[2021-11-18] MEDS ORDERED: LACTULOSE 20G/30ML UDC PO NR (16:30)
[2021-11-18] MEDS ORDERED: PIPERACILLIN/TAZ 3.375G PREMIX 50 ML IV NR (16:45)
[2021-11-18] MEDS ORDERED: POTASSIUM CHLORIDE 20MEQ/PACKET NG NR (17:00)
[2021-11-18] MEDS ORDERED: ONDANSETRON HCL 4MG/2ML INJ IV PRN (17:00)
[2021-11-18] MEDS ORDERED: GUAIFENESIN 200MG/10ML SUGAR FREE UDC NG PRN (17:00)
[2021-11-18] MEDS ORDERED: DEXTROSE 50% WATER 50ML SYRINGE IV PRN (17:00)
[2021-11-18] MEDS ORDERED: VANCOMYCIN 1G PREMIX 200 ML IV SCH (17:00)
[2021-11-18] MEDS ORDERED: ACETAMINOPHEN 650MG/20.3ML UDC GT PRN ×2 (17:00)
[2021-11-18] MEDS ORDERED: NOREPINEPHRINE 8MG/250ML PMX 250 ML IV PRN ×2 (17:30→17:45)
[2021-11-18] MEDS: BLOOD SUGAR DIAGNOSTIC STRIP TEST SCH ×2 (17:30→21:46)
[2021-11-18] MEDS ORDERED: SODIUM CHLORIDE 0.9% 1,000 ML IV SCH (17:30)
[2021-11-18] MEDS: INSULIN LISPRO 100 UNITS/ML SUBCUT SCH ×2 (18:20→21:00)
[2021-11-18] MEDS: IPRATROPIUM/ALBUTEROL 0.5-3(2.5)MG/3ML NEB HHN SCH (20:45)
[2021-11-18] MEDS: PHENYLEPHRINE 100 MG in DEXT 5% WATER 240 ML IV PRN (21:20)
[2021-11-18] MEDS: PIPERACILLIN/TAZOBACTAM 3.375 G in DEXTROSE 5% WATER 50 ML IV SCH (21:46)
[2021-11-18] MEDS: HYDROCORTISONE SOD SUCCINATE 100 MG/2 ML VIAL IV SCH (21:47)
[2021-11-18] MEDS ORDERED: PIPERACILLIN/TAZOBACTAM 3.375 G in DEXTROSE 5% WATER 50 ML IV SCH (22:00)
[2021-11-18] MEDS: DESMOPRESSIN ACETATE 0.1MG TABLET NG SCH (22:28)
[2021-11-18] MEDS ORDERED: DEXT 5%/0.9% NACL 1,000 ML IV SCH (22:45)
[2021-11-18] MEDS ORDERED: PANTOPRAZOLE SODIUM 40 MG/VIAL IV NR (22:45)
[2021-11-19] VITALS (97 sets, daily range): BP systolic 84–137; BP diastolic 45–78
[2021-11-19] MEDS: IPRATROPIUM/ALBUTEROL 0.5-3(2.5)MG/3ML NEB HHN SCH ×6 (00:34→20:29)
[2021-11-19] MEDS: PHENYLEPHRINE 100 MG in DEXT 5% WATER 240 ML IV PRN ×2 (03:06→20:45)
[2021-11-19] MEDS: BLOOD SUGAR DIAGNOSTIC STRIP TEST SCH ×3 (05:09→16:30)
[2021-11-19] MEDS: PIPERACILLIN/TAZOBACTAM 3.375 G in DEXTROSE 5% WATER 50 ML IV SCH ×3 (05:10→20:45)
[2021-11-19] MEDS: HYDROCORTISONE SOD SUCCINATE 100 MG/2 ML VIAL IV SCH ×3 (05:19→20:45)
[2021-11-19 05:37] LABS: BASOPHILS % 0.3 % (0.0-2.0); EOSINOPHILS % 0.1 % (0.0-5.0); HEMATOCRIT. 43.2 % (36.0-48.0); HEMOGLOBIN. 13.9 g/dL (12.0-16.0); LYMPHOCYTES % 15.6 % (20.0-50.0); MEAN CORPUSCULAR HEMOGLOBIN 27.4 pg (28.0-32.0); MEAN CORPUSCULAR VOLUME 84.8 fL (81.0-99.0); MEAN PLATELET VOLUME 9.2 fl (7.4-10.4); MONOCYTES % 6.4 % (2.0-8.0); NEUTROPHILS % 77.6 % (40.0-76.0); PLATELET 162 x1000/uL (130-400); RED BLOOD CELL COUNT 5.09 mill/uL (4.2-5.4); RED CELL DISTRIBUTION WIDTH 16.1 % (11.6-14.6)
[2021-11-19 06:00] LABS: CHLORIDE 117 mEq/L (98-107)
[2021-11-19] MEDS ORDERED: VANCOMYCIN 750MG PREMIX 150 ML IV SCH ×2 (06:00)
[2021-11-19 06:25] LABS: PHOSPHORUS 0.3 mg/dL (2.5-4.9)
[2021-11-19] MEDS: LEVOTHYROXINE SODIUM 137MCG TABLET NG SCH (06:51)
[2021-11-19] MEDS: INSULIN LISPRO 100 UNITS/ML SUBCUT SCH ×3 (06:52→18:42)
[2021-11-19 08:18] LABS: BG BASE EXCESS 5.4 mmol/L (-2.0-2.0); BG CARBOXYHEMOGLOBIN 0.3 % (0.5-1.5); BG DEOXYHEMOGLOBIN 0.6 % (0.0-5.0); BG FRACTION INSPIRED OXYGEN 85; BG HCO3 ACT 27.1 mmol/L (22.0-26.0); BG METHEMOGLOBIN 0.2 % (0.0-1.5); BG OXYGEN SATURATION 99.4 % (92.0-98.5); BG OXYHEMOGLOBIN 98.9 % (94.0-97.0); BG PCO2 31.4 mmHg (35.0-45.0); BG PH 7.554 (7.350-7.450); BG PO2 167.1 mmHg (75.0-100.0); BG TOTAL HEMOGLOBIN 14.9 g/dL (12.0-18.0); BG VENT MODE VENT - AC
[2021-11-19] MEDS: DESMOPRESSIN ACETATE 0.1MG TABLET NG SCH ×2 (09:02→21:40)
[2021-11-19] MEDS: PANTOPRAZOLE SODIUM 40 MG/VIAL IV SCH (09:02)
[2021-11-19] MEDS: ENOXAPARIN 40MG/0.4ML SYR SUBCUT SCH ×2 (09:03→18:42)
[2021-11-19] MEDS: DEXT 5%/0.2% NACL 1,000 ML IV SCH ×2 (09:29→18:42)
[2021-11-19] MEDS ORDERED: VANCOMYCIN 500MG PREMIX 100 ML IV SCH (10:00)
[2021-11-19] MEDS ORDERED: POTASSIUM PHOS,M-BASIC-D-BASIC 30 MMOL in DEXT 5% WATER 500 ML IV SCH (10:00)
[2021-11-19] MEDS: PANTOT AC/MIN OIL/PET HY-PHL OINT (AQUAPHOR) TOP SCH (13:21)
[2021-11-20] VITALS (88 sets, daily range): BP systolic 93–153; BP diastolic 43–109
[2021-11-20] MEDS: BLOOD SUGAR DIAGNOSTIC STRIP TEST SCH ×4 (00:19→17:21)
[2021-11-20] MEDS: IPRATROPIUM/ALBUTEROL 0.5-3(2.5)MG/3ML NEB HHN SCH ×6 (00:26→19:43)
[2021-11-20] MEDS: INSULIN LISPRO 100 UNITS/ML SUBCUT SCH ×4 (00:57→17:47)
[2021-11-20] MEDS: ENOXAPARIN 40MG/0.4ML SYR SUBCUT SCH ×2 (05:15→17:44)
[2021-11-20] MEDS: PIPERACILLIN/TAZOBACTAM 3.375 G in DEXTROSE 5% WATER 50 ML IV SCH ×3 (05:15→22:20)
[2021-11-20] MEDS: HYDROCORTISONE SOD SUCCINATE 100 MG/2 ML VIAL IV SCH ×3 (05:15→17:44)
[2021-11-20] MEDS: LEVOTHYROXINE SODIUM 137MCG TABLET NG SCH (05:15)
[2021-11-20] MEDS: DEXT 5%/0.2% NACL 1,000 ML IV SCH (05:16)
[2021-11-20 05:23] LABS: BASOPHILS % 0.1 % (0.0-2.0); HEMATOCRIT. 35.8 % (36.0-48.0); HEMOGLOBIN. 11.6 g/dL (12.0-16.0); LYMPHOCYTES % 15.4 % (20.0-50.0); MEAN CORPUSCULAR HEMOGLOBIN 27.4 pg (28.0-32.0); MEAN CORPUSCULAR VOLUME 84.9 fL (81.0-99.0); MONOCYTES % 6.8 % (2.0-8.0); NEUTROPHILS % 77.7 % (40.0-76.0); PLATELET 116 x1000/uL (130-400); RED BLOOD CELL COUNT 4.22 mill/uL (4.2-5.4); RED CELL DISTRIBUTION WIDTH 16.7 % (11.6-14.6)
[2021-11-20 05:50] LABS: CHLORIDE 114 mEq/L (98-107)
[2021-11-20 05:59] LABS: PHOSPHORUS 1.5 mg/dL (2.5-4.9)
[2021-11-20] MEDS ORDERED: VANCOMYCIN 1250MG in DEXTROSE 5% WATER 250ML IV SCH (08:00)
[2021-11-20 08:12] LABS: BG BASE EXCESS 2.4 mmol/L (-2.0-2.0); BG CARBOXYHEMOGLOBIN 0.2 % (0.5-1.5); BG DEOXYHEMOGLOBIN 2.4 % (0.0-5.0); BG FRACTION INSPIRED OXYGEN 55; BG HCO3 ACT 27.7 mmol/L (22.0-26.0); BG METHEMOGLOBIN 0.3 % (0.0-1.5); BG OXYGEN SATURATION 97.6 % (92.0-98.5); BG OXYHEMOGLOBIN 97.1 % (94.0-97.0); BG PCO2 45.6 mmHg (35.0-45.0); BG PH 7.401 (7.350-7.450); BG PO2 93.7 mmHg (75.0-100.0); BG SAMPLE SITE LEFT RADIAL; BG TOTAL HEMOGLOBIN 12.3 g/dL (12.0-18.0); BG VENT MODE VENT - AC
[2021-11-20] MEDS: DESMOPRESSIN ACETATE 0.1MG TABLET NG SCH ×2 (09:20→21:11)
[2021-11-20] MEDS: PANTOPRAZOLE SODIUM 40 MG/VIAL IV SCH (09:20)
[2021-11-20] MEDS: PANTOT AC/MIN OIL/PET HY-PHL OINT (AQUAPHOR) TOP SCH (09:20)
[2021-11-20] MEDS ORDERED: POTASSIUM PHOS,M-BASIC-D-BASIC 30 MMOL in DEXT 5% WATER 500 ML IV NR (12:30)
[2021-11-20] MEDS ORDERED: LORAZEPAM 2MG/ML CPJ IV PRN (16:30)
[2021-11-20] MEDS: VANCOMYCIN 1G PREMIX 200 ML IV SCH ×2 (16:39→17:51)
[2021-11-20 17:35] LABS: BG BASE EXCESS 1.2 mmol/L (-2.0-2.0); BG CARBOXYHEMOGLOBIN 0.5 % (0.5-1.5); BG DEOXYHEMOGLOBIN 2.5 % (0.0-5.0); BG FRACTION INSPIRED OXYGEN 40; BG HCO3 ACT 28.3 mmol/L (22.0-26.0); BG METHEMOGLOBIN 0.3 % (0.0-1.5); BG OXYGEN SATURATION 97.5 % (92.0-98.5); BG OXYHEMOGLOBIN 96.7 % (94.0-97.0); BG PCO2 55.9 mmHg (35.0-45.0); BG PH 7.322 (7.350-7.450); BG PO2 99.2 mmHg (75.0-100.0); BG SAMPLE SITE LEFT RADIAL; BG TOTAL HEMOGLOBIN 12.6 g/dL (12.0-18.0); BG VENT MODE VENT - CPAP
[2021-11-20] MEDS: BROMOCRIPTINE MESYLATE 2.5 MG TABLET NG SCH (17:49)
[2021-11-20 23:00] LABS: CLARITY URINE CLOUDY (CLEAR); COLOR URINE YELLOW (YELLOW); KETONES URINE NEGATIVE (NEGATIVE); LEUKOCYTE ESTERASE URINE TRACE (NEGATIVE); NITRITE URINE NEGATIVE (NEGATIVE); OCCULT BLOOD URINE TRACE (NEGATIVE); PROTEIN URINE 1+ (NEGATIVE); SPECIFIC GRAVITY URINE 1.028 (1.005-1.030)
[2021-11-21] VITALS (61 sets, daily range): BP systolic 59–135; BP diastolic 26–101
[2021-11-21] MEDS: IPRATROPIUM/ALBUTEROL 0.5-3(2.5)MG/3ML NEB HHN SCH ×6 (00:22→20:08)
[2021-11-21] MEDS: BLOOD SUGAR DIAGNOSTIC STRIP TEST SCH ×5 (00:24→23:40)
[2021-11-21] MEDS: VANCOMYCIN 1G PREMIX 200 ML IV SCH ×2 (00:27→09:10)
[2021-11-21] MEDS: INSULIN LISPRO 100 UNITS/ML SUBCUT SCH ×5 (00:32→23:40)
[2021-11-21 06:12] LABS: BASOPHILS % 0.1 % (0.0-2.0); EOSINOPHILS % 0.1 % (0.0-5.0); HEMATOCRIT. 34.6 % (36.0-48.0); HEMOGLOBIN. 11.1 g/dL (12.0-16.0); LYMPHOCYTES % 21.7 % (20.0-50.0); MEAN CORPUSCULAR HEMOGLOBIN 27.4 pg (28.0-32.0); MEAN CORPUSCULAR VOLUME 85.4 fL (81.0-99.0); MEAN PLATELET VOLUME 8.9 fl (7.4-10.4); MONOCYTES % 5.4 % (2.0-8.0); NEUTROPHILS % 72.7 % (40.0-76.0); PLATELET 112 x1000/uL (130-400); RED BLOOD CELL COUNT 4.05 mill/uL (4.2-5.4); RED CELL DISTRIBUTION WIDTH 16.6 % (11.6-14.6)
[2021-11-21 06:14] LABS: CHLORIDE 109 mEq/L (98-107)
[2021-11-21] MEDS: LEVOTHYROXINE SODIUM 137MCG TABLET NG SCH (06:18)
[2021-11-21] MEDS: ENOXAPARIN 40MG/0.4ML SYR SUBCUT SCH ×2 (06:18→18:28)
[2021-11-21] MEDS: HYDROCORTISONE SOD SUCCINATE 100 MG/2 ML VIAL IV SCH ×2 (06:18→18:28)
[2021-11-21] MEDS: PIPERACILLIN/TAZOBACTAM 3.375 G in DEXTROSE 5% WATER 50 ML IV SCH ×3 (06:19→21:07)
[2021-11-21 07:38] LABS: BG CARBOXYHEMOGLOBIN 0.1 % (0.5-1.5); BG DEOXYHEMOGLOBIN 2.9 % (0.0-5.0); BG HCO3 ACT 28.7 mmol/L (22.0-26.0); BG OXYGEN SATURATION 97.1 % (92.0-98.5); BG PCO2 48.8 mmHg (35.0-45.0); BG PH 7.387 (7.350-7.450); BG PO2 95.4 mmHg (75.0-100.0); BG SAMPLE SITE RIGHT RADIAL; BG TOTAL HEMOGLOBIN 11.6 g/dL (12.0-18.0); BG VENT MODE VENT - AC
[2021-11-21] MEDS: BROMOCRIPTINE MESYLATE 2.5 MG TABLET NG SCH (09:10)
[2021-11-21] MEDS: PANTOPRAZOLE SODIUM 40 MG/VIAL IV SCH (09:10)
[2021-11-21] MEDS: PANTOT AC/MIN OIL/PET HY-PHL OINT (AQUAPHOR) TOP SCH (09:11)
[2021-11-21] MEDS: DESMOPRESSIN ACETATE 0.1MG TABLET NG SCH ×2 (10:21→21:35)
[2021-11-21 11:18] LABS: BG BASE EXCESS 1.9 mmol/L (-2.0-2.0); BG CARBOXYHEMOGLOBIN 0.1 % (0.5-1.5); BG DEOXYHEMOGLOBIN 3.2 % (0.0-5.0); BG HCO3 ACT 29.3 mmol/L (22.0-26.0); BG METHEMOGLOBIN 0.1 % (0.0-1.5); BG OXYGEN SATURATION 96.8 % (92.0-98.5); BG OXYHEMOGLOBIN 96.6 % (94.0-97.0); BG PCO2 59.1 mmHg (35.0-45.0); BG PH 7.313 (7.350-7.450); BG PO2 92.9 mmHg (75.0-100.0); BG SAMPLE SITE RIGHT RADIAL; BG TOTAL HEMOGLOBIN 12.3 g/dL (12.0-18.0); BG VENT MODE VENT - CPAP
[2021-11-21 14:13] LABS: BG BASE EXCESS 1.9 mmol/L (-2.0-2.0); BG CARBOXYHEMOGLOBIN 0.4 % (0.5-1.5); BG METHEMOGLOBIN 0.3 % (0.0-1.5); BG OXYHEMOGLOBIN 94.3 % (94.0-97.0); BG PCO2 64.4 mmHg (35.0-45.0); BG PH 7.286 (7.350-7.450); BG PO2 84.9 mmHg (75.0-100.0); BG SAMPLE SITE RIGHT RADIAL; BG TOTAL HEMOGLOBIN 12.2 g/dL (12.0-18.0); BG VENT MODE VENT - CPAP
[2021-11-21] MEDS: VANCOMYCIN 1250MG in DEXTROSE 5% WATER 250ML IV SCH (20:59)
[2021-11-22] VITALS (64 sets, daily range): BP systolic 95–128; BP diastolic 44–76
[2021-11-22] MEDS: IPRATROPIUM/ALBUTEROL 0.5-3(2.5)MG/3ML NEB HHN SCH ×7 (00:12→23:56)
[2021-11-22 05:24] LABS: HEMATOCRIT 34.4 % (36.0-48.0); MEAN CORPUSCULAR HEMOGLOBIN 27.5 pg (28.0-32.0); PLATELET 111 x1000/uL (130-400)
[2021-11-22 05:42] LABS: CHLORIDE 108 mEq/L (98-107)
[2021-11-22 05:48] LABS: PHOSPHORUS 2.5 mg/dL (2.5-4.9)
[2021-11-22] MEDS: INSULIN LISPRO 100 UNITS/ML SUBCUT SCH ×3 (06:00→17:21)
[2021-11-22] MEDS: BLOOD SUGAR DIAGNOSTIC STRIP TEST SCH ×3 (06:33→17:08)
[2021-11-22] MEDS: PIPERACILLIN/TAZOBACTAM 3.375 G in DEXTROSE 5% WATER 50 ML IV SCH ×3 (06:34→21:00)
[2021-11-22] MEDS: HYDROCORTISONE SOD SUCCINATE 100 MG/2 ML VIAL IV SCH ×2 (06:35→18:25)
[2021-11-22] MEDS: ENOXAPARIN 40MG/0.4ML SYR SUBCUT SCH (06:35)
[2021-11-22] MEDS: LEVOTHYROXINE SODIUM 137MCG TABLET NG SCH (06:35)
[2021-11-22 08:47] LABS: BG BASE EXCESS 3.7 mmol/L (-2.0-2.0); BG DEOXYHEMOGLOBIN 1.6 % (0.0-5.0); BG FRACTION INSPIRED OXYGEN 40; BG HCO3 ACT 29.9 mmol/L (22.0-26.0); BG METHEMOGLOBIN 0.2 % (0.0-1.5); BG OXYGEN SATURATION 98.4 % (92.0-98.5); BG OXYHEMOGLOBIN 98.2 % (94.0-97.0); BG PCO2 52.5 mmHg (35.0-45.0); BG PH 7.373 (7.350-7.450); BG PO2 121.1 mmHg (75.0-100.0); BG SAMPLE SITE RIGHT RADIAL; BG VENT MODE VENT - SIMV
[2021-11-22] MEDS ORDERED: POTASSIUM CHLORIDE 20MEQ TABLET SR PO SCH (09:00)
[2021-11-22] MEDS: PANTOPRAZOLE SODIUM 40 MG/VIAL IV SCH (09:42)
[2021-11-22] MEDS: DESMOPRESSIN ACETATE 0.1MG TABLET NG SCH ×2 (09:43→21:00)
[2021-11-22] MEDS: BROMOCRIPTINE MESYLATE 2.5 MG TABLET NG SCH (09:43)
[2021-11-22] MEDS: PANTOT AC/MIN OIL/PET HY-PHL OINT (AQUAPHOR) TOP SCH (09:44)
[2021-11-22] MEDS: VANCOMYCIN 1250MG in DEXTROSE 5% WATER 250ML IV SCH ×2 (10:01→20:46)
[2021-11-22 11:48] LABS: BG BASE EXCESS 5.4 mmol/L (-2.0-2.0); BG CARBOXYHEMOGLOBIN 0.3 % (0.5-1.5); BG DEOXYHEMOGLOBIN 1.5 % (0.0-5.0); BG FRACTION INSPIRED OXYGEN 40; BG HCO3 ACT 31.2 mmol/L (22.0-26.0); BG METHEMOGLOBIN 0.3 % (0.0-1.5); BG OXYGEN SATURATION 98.5 % (92.0-98.5); BG OXYHEMOGLOBIN 97.9 % (94.0-97.0); BG PCO2 51.6 mmHg (35.0-45.0); BG PO2 123.6 mmHg (75.0-100.0); BG SAMPLE SITE RIGHT RADIAL; BG TOTAL HEMOGLOBIN 12.1 g/dL (12.0-18.0); BG VENT MODE VENT - CPAP
[2021-11-22] MEDS: ENOXAPARIN 30MG/0.3ML SYR SUBCUT SCH (20:47)
[2021-11-23] VITALS (29 sets, daily range): BP systolic 86–127; BP diastolic 35–75
[2021-11-23] MEDS: IPRATROPIUM/ALBUTEROL 0.5-3(2.5)MG/3ML NEB HHN SCH ×4 (04:19→17:17)
[2021-11-23] MEDS: INSULIN LISPRO 100 UNITS/ML SUBCUT SCH ×5 (06:00→23:18)
[2021-11-23 06:15] LABS: CHLORIDE 106 mEq/L (98-107)
[2021-11-23] MEDS: LEVOTHYROXINE SODIUM 137MCG TABLET NG SCH (06:19)
[2021-11-23] MEDS: HYDROCORTISONE SOD SUCCINATE 100 MG/2 ML VIAL IV SCH ×2 (06:19→17:27)
[2021-11-23] MEDS: BLOOD SUGAR DIAGNOSTIC STRIP TEST SCH ×5 (06:19→23:18)
[2021-11-23] MEDS: PIPERACILLIN/TAZOBACTAM 3.375 G in DEXTROSE 5% WATER 50 ML IV SCH ×3 (06:19→22:13)
[2021-11-23] MEDS: ENOXAPARIN 30MG/0.3ML SYR SUBCUT SCH ×2 (08:41→22:13)
[2021-11-23] MEDS: PANTOPRAZOLE SODIUM 40 MG/VIAL IV SCH (08:41)
[2021-11-23] MEDS: BROMOCRIPTINE MESYLATE 2.5 MG TABLET NG SCH (08:41)
[2021-11-23] MEDS: VANCOMYCIN 1250MG in DEXTROSE 5% WATER 250ML IV SCH ×2 (08:41→22:12)
[2021-11-23] MEDS: PANTOT AC/MIN OIL/PET HY-PHL OINT (AQUAPHOR) TOP SCH (08:42)
[2021-11-23] MEDS: DESMOPRESSIN ACETATE 0.1MG TABLET NG SCH ×2 (08:42→22:13)
[2021-11-23] MEDS ORDERED: SODIUM CHLORIDE 0.9% 500 ML IV NR (13:15)
[2021-11-24] VITALS (11 sets, daily range): BP systolic 94–136; BP diastolic 29–79
[2021-11-24] MEDS: INSULIN LISPRO 100 UNITS/ML SUBCUT SCH ×3 (06:00→17:16)
[2021-11-24 06:20] LABS: HEMATOCRIT 34.4 % (36.0-48.0); HEMOGLOBIN 10.8 g/dL (12.0-16.0); MEAN CORPUSCULAR HEMOGLOBIN 27.5 pg (28.0-32.0); MEAN CORPUSCULAR VOLUME 87.5 fL (81.0-99.0); PLATELET 115 x1000/uL (130-400); RED BLOOD CELL COUNT 3.93 mill/uL (4.2-5.4); RED CELL DISTRIBUTION WIDTH 15.8 % (11.6-14.6)
[2021-11-24 06:28] LABS: CHLORIDE 105 mEq/L (98-107)
[2021-11-24] MEDS: HYDROCORTISONE SOD SUCCINATE 100 MG/2 ML VIAL IV SCH ×2 (06:41→17:45)
[2021-11-24] MEDS: BLOOD SUGAR DIAGNOSTIC STRIP TEST SCH ×3 (06:41→17:16)
[2021-11-24 07:15] LABS: PHOSPHORUS 2.7 mg/dL (2.5-4.9)
[2021-11-24] MEDS: IPRATROPIUM/ALBUTEROL 0.5-3(2.5)MG/3ML NEB HHN SCH ×5 (08:00→20:00)
[2021-11-24] MEDS: LEVOTHYROXINE SODIUM 137MCG TABLET NG SCH (08:52)
[2021-11-24] MEDS: BROMOCRIPTINE MESYLATE 2.5 MG TABLET NG SCH (08:52)
[2021-11-24] MEDS: ENOXAPARIN 30MG/0.3ML SYR SUBCUT SCH ×2 (08:52→21:01)
[2021-11-24] MEDS: PANTOPRAZOLE SODIUM 40 MG/VIAL IV SCH (08:52)
[2021-11-24] MEDS: PANTOT AC/MIN OIL/PET HY-PHL OINT (AQUAPHOR) TOP SCH (09:00)
[2021-11-24 14:20] LABS: BG BASE EXCESS 6.1 mmol/L (-2.0-2.0); BG CARBOXYHEMOGLOBIN 0.3 % (0.5-1.5); BG DEOXYHEMOGLOBIN 3.1 % (0.0-5.0); BG FRACTION INSPIRED OXYGEN 36; BG HCO3 ACT 37.3 mmol/L (22.0-26.0); BG METHEMOGLOBIN 0.2 % (0.0-1.5); BG OXYGEN SATURATION 96.9 % (92.0-98.5); BG OXYHEMOGLOBIN 96.4 % (94.0-97.0); BG PCO2 98.3 mmHg (35.0-45.0); BG PH 7.197 (7.350-7.450); BG PO2 99.8 mmHg (75.0-100.0); BG SAMPLE SITE RIGHT RADIAL; BG TOTAL HEMOGLOBIN 12.2 g/dL (12.0-18.0); BG VENT MODE NASAL CANNULA
[2021-11-24] MEDS ORDERED: SODIUM CHLORIDE 0.9% 500 ML IV SCH (15:45)
[2021-11-24] MEDS: DESMOPRESSIN ACETATE 0.1MG TABLET NG SCH ×2 (16:28→21:00)
[2021-11-24] MEDS: MIDODRINE HCL 5MG TABLET PO SCH ×2 (16:28→16:29)
[2021-11-24 17:20] LABS: BG BASE EXCESS 6.3 mmol/L (-2.0-2.0); BG CARBOXYHEMOGLOBIN 0.2 % (0.5-1.5); BG DEOXYHEMOGLOBIN 3.1 % (0.0-5.0); BG FRACTION INSPIRED OXYGEN 50; BG OXYGEN SATURATION 96.9 % (92.0-98.5); BG OXYHEMOGLOBIN 96.7 % (94.0-97.0); BG PCO2 74.8 mmHg (35.0-45.0); BG PH 7.288 (7.350-7.450); BG PO2 92.6 mmHg (75.0-100.0); BG SAMPLE SITE RIGHT RADIAL; BG TOTAL HEMOGLOBIN 11.3 g/dL (12.0-18.0); BG TOTAL RESPIRATORY RATE 24 b/min; BG VENT MODE MASK - BIPAP
[2021-11-25] VITALS (12 sets, daily range): BP systolic 98–129; BP diastolic 46–89
[2021-11-25] MEDS: BLOOD SUGAR DIAGNOSTIC STRIP TEST SCH ×5 (00:14→20:32)
[2021-11-25] MEDS: IPRATROPIUM/ALBUTEROL 0.5-3(2.5)MG/3ML NEB HHN SCH ×6 (04:27→20:42)
[2021-11-25] MEDS: INSULIN LISPRO 100 UNITS/ML SUBCUT SCH ×5 (06:00→21:00)
[2021-11-25] MEDS: HYDROCORTISONE SOD SUCCINATE 100 MG/2 ML VIAL IV SCH ×2 (06:21→17:27)
[2021-11-25 08:06] LABS: HEMATOCRIT 33.1 % (36.0-48.0); HEMOGLOBIN 10.4 g/dL (12.0-16.0); MEAN CORPUSCULAR HEMOGLOBIN 27.3 pg (28.0-32.0); MEAN CORPUSCULAR VOLUME 86.3 fL (81.0-99.0); PLATELET 137 x1000/uL (130-400); RED BLOOD CELL COUNT 3.83 mill/uL (4.2-5.4); RED CELL DISTRIBUTION WIDTH 15.8 % (11.6-14.6)
[2021-11-25] MEDS: PANTOPRAZOLE SODIUM 40 MG/VIAL IV SCH (08:12)
[2021-11-25] MEDS: BROMOCRIPTINE MESYLATE 2.5 MG TABLET NG SCH (08:13)
[2021-11-25] MEDS: LEVOTHYROXINE SODIUM 137MCG TABLET NG SCH (08:13)
[2021-11-25] MEDS: DESMOPRESSIN ACETATE 0.1MG TABLET NG SCH ×2 (08:13→22:50)
[2021-11-25] MEDS: PANTOT AC/MIN OIL/PET HY-PHL OINT (AQUAPHOR) TOP SCH (08:13)
[2021-11-25] MEDS: ENOXAPARIN 30MG/0.3ML SYR SUBCUT SCH ×2 (08:14→20:32)
[2021-11-25 08:44] LABS: CHLORIDE 107 mEq/L (98-107)
[2021-11-25 08:50] LABS: PHOSPHORUS 2.7 mg/dL (2.5-4.9)
[2021-11-25 10:03] LABS: BG BASE EXCESS 7.1 mmol/L (-2.0-2.0); BG CARBOXYHEMOGLOBIN 0.5 % (0.5-1.5); BG DEOXYHEMOGLOBIN 1.9 % (0.0-5.0); BG FRACTION INSPIRED OXYGEN 40; BG HCO3 ACT 35.4 mmol/L (22.0-26.0); BG METHEMOGLOBIN 0.2 % (0.0-1.5); BG OXYGEN SATURATION 98.1 % (92.0-98.5); BG OXYHEMOGLOBIN 97.4 % (94.0-97.0); BG PCO2 70.9 mmHg (35.0-45.0); BG PH 7.316 (7.350-7.450); BG PO2 113.5 mmHg (75.0-100.0); BG SAMPLE SITE RIGHT RADIAL; BG VENT MODE NASAL CANNULA
[2021-11-25] MEDS ORDERED: DEXTROSE 50% WATER 50ML SYRINGE IV PRN ×2 (20:30→23:15)
[2021-11-26] VITALS (12 sets, daily range): BP systolic 111–130; BP diastolic 60–86
[2021-11-26] MEDS: IPRATROPIUM/ALBUTEROL 0.5-3(2.5)MG/3ML NEB HHN SCH ×5 (00:56→16:38)
[2021-11-26] MEDS: INSULIN LISPRO 100 UNITS/ML SUBCUT SCH ×9 (05:10→17:28)
[2021-11-26] MEDS: HYDROCORTISONE SOD SUCCINATE 100 MG/2 ML VIAL IV SCH (05:11)
[2021-11-26] MEDS: BLOOD SUGAR DIAGNOSTIC STRIP TEST SCH ×6 (07:30→17:28)
[2021-11-26 07:39] LABS: HEMATOCRIT. 34.2 % (36.0-48.0); HEMOGLOBIN. 10.9 g/dL (12.0-16.0); MEAN CORPUSCULAR HEMOGLOBIN 27.7 pg (28.0-32.0); MEAN CORPUSCULAR VOLUME 86.9 fL (81.0-99.0); MEAN PLATELET VOLUME 8.7 fl (7.4-10.4); PLATELET 134 x1000/uL (130-400); RED BLOOD CELL COUNT 3.93 mill/uL (4.2-5.4); RED CELL DISTRIBUTION WIDTH 16.2 % (11.6-14.6)
[2021-11-26 07:53] LABS: CHLORIDE 107 mEq/L (98-107)
[2021-11-26 08:06] LABS: PHOSPHORUS 2.4 mg/dL (2.5-4.9)
[2021-11-26 08:20] LABS: BG BASE EXCESS 6.4 mmol/L (-2.0-2.0); BG CARBOXYHEMOGLOBIN 0.1 % (0.5-1.5); BG DEOXYHEMOGLOBIN 2.4 % (0.0-5.0); BG FRACTION INSPIRED OXYGEN 50; BG HCO3 ACT 33.9 mmol/L (22.0-26.0); BG METHEMOGLOBIN 0.3 % (0.0-1.5); BG OXYGEN SATURATION 97.6 % (92.0-98.5); BG OXYHEMOGLOBIN 97.2 % (94.0-97.0); BG PCO2 64.8 mmHg (35.0-45.0); BG PH 7.337 (7.350-7.450); BG PO2 101.4 mmHg (75.0-100.0); BG SAMPLE SITE RIGHT RADIAL; BG TOTAL HEMOGLOBIN 11.7 g/dL (12.0-18.0); BG TOTAL RESPIRATORY RATE 24 b/min; BG VENT MODE MASK - BIPAP
[2021-11-26] MEDS: ENOXAPARIN 30MG/0.3ML SYR SUBCUT SCH (08:47)
[2021-11-26] MEDS: DESMOPRESSIN ACETATE 0.1MG TABLET NG SCH (08:47)
[2021-11-26] MEDS: PANTOPRAZOLE SODIUM 40 MG/VIAL IV SCH (08:47)
[2021-11-26] MEDS: BROMOCRIPTINE MESYLATE 2.5 MG TABLET NG SCH (08:47)
[2021-11-26] MEDS: PANTOT AC/MIN OIL/PET HY-PHL OINT (AQUAPHOR) TOP SCH (08:48)
[2021-11-26] MEDS: LEVOTHYROXINE SODIUM 137MCG TABLET NG SCH (08:51)
[2021-11-26] MEDS ORDERED: KCL 20MEQ/100ML PREMIX 100 ML IV SCH (10:00)
[2021-11-26 23:24] LABS: PLATELET ESTIMATE NORMAL
== END 2021-11-26 18:35 | DRG 871 ==
LOC: ER 12:55 → EDBEDREQTM 15:46 → EDBEDREQ 15:46 → ENRESERV 16:00 → MICUSO 18:28 → 5EST 11-23 09:45
PROVIDERS: ADMIT Internal Medicine; ATTEND Internal Medicine
PROC: 02HV33Z Insertion of Infusion Device into Superior Vena Cava, Percutaneous Approach (ICD-10-PCS; principal; 2021-11-18)
PROC: B548ZZA Ultrasonography of Superior Vena Cava, Guidance (ICD-10-PCS; 2021-11-18)
PROC: 0BH17EZ Insertion of Endotracheal Airway into Trachea, Via Natural or Artificial Opening (ICD-10-PCS; 2021-11-18)
PROC: 5A1945Z Respiratory Ventilation, 24-96 Consecutive Hours (ICD-10-PCS; 2021-11-18)
PROC: 5A09357 Assistance with Respiratory Ventilation, Less than 24 Consecutive Hours, Continuous Positive Airway Pressure (ICD-10-PCS; 2021-11-22)
PROC: 5A09357 Assistance with Respiratory Ventilation, Less than 24 Consecutive Hours, Continuous Positive Airway Pressure (ICD-10-PCS; 2021-11-22)
PROC: 5A09457 Assistance with Respiratory Ventilation, 24-96 Consecutive Hours, Continuous Positive Airway Pressure (ICD-10-PCS; 2021-11-24)
DX: A41.9 Sepsis, unspecified organism (principal); G93.41 Metabolic encephalopathy; J18.9 Pneumonia, unspecified organism; J96.01 Acute respiratory failure with hypoxia; R65.21 Severe sepsis with septic shock; J96.02 Acute respiratory failure with hypercapnia; N39.0 Urinary tract infection, site not specified; E72.20 Disorder of urea cycle metabolism, unspecified; E27.40 Unspecified adrenocortical insufficiency; K92.2 Gastrointestinal hemorrhage, unspecified; Z68.42 Body mass index [BMI] 45.0-49.9, adult; E23.0 Hypopituitarism; E23.2 Diabetes insipidus; R47.01 Aphasia; I69.351 Hemiplegia and hemiparesis following cerebral infarction affecting right dominant side; I87.2 Venous insufficiency (chronic) (peripheral); R26.9 Unspecified abnormalities of gait and mobility; E83.41 Hypermagnesemia; I89.0 Lymphedema, not elsewhere classified; E11.620 Type 2 diabetes mellitus with diabetic dermatitis; I69.334 Monoplegia of upper limb following cerebral infarction affecting left non-dominant side; E66.01 Morbid (severe) obesity due to excess calories; I95.9 Hypotension, unspecified; E03.9 Hypothyroidism, unspecified; H54.7 Unspecified visual loss; I50.9 Heart failure, unspecified; L30.9 Dermatitis, unspecified; R13.10 Dysphagia, unspecified; Z59.01 Sheltered homelessness; Z80.3 Family history of malignant neoplasm of breast; Z82.49 Family history of ischemic heart disease and other diseases of the circulatory system
CPT/HCPCS: 31500; 36415; 36573; 36600; 71045; 74018; 80048; 80053; 80202; 80305; 80320; 81003; 82140; 82375; 82550; 82805; 82962; 83036; 83605; 83735; 83880; 84100; 84145; 84443; 84484; 85025; 85027; 92523; 92610; 93005; 93970; 94002; 94003; 94640; 94660; 97166; 99291; A6261; C1725; C9113; J1650; J1720; J1815; J2060; J2250; J2370; J2543; J3370; J3480; J3490; J7030; J7050; J7060; G0480

== ENCOUNTER 2022-02-01 21:23 | Emergency (ER) | payer MEDICARE, MEDICAID ==
[~2022-02-01] VITALS: Ht 180.3 cm; Wt 82.0 kg
[~2022-02-01 21:23] MED LIST changes: -ETOMIDATE 2MG/ML 10ML VIAL IV ONE; -SODIUM CHLORIDE 0.9% 10ML VIAL ONE; -VECURONIUM BROMIDE 10 MG/VIAL IV ONE
[2022-02-02] MEDS ORDERED: SODIUM CHLORIDE 0.9% 1,000 ML IV ONE
[2022-02-02 01:30] LABS: CHLORIDE 121 mEq/L (98-107)
[2022-02-02 01:36] LABS: EOSINOPHILS % 2.3 % (0.0-5.0); MEAN CORPUSCULAR HEMOGLOBIN 27.1 pg (28.0-32.0); MONOCYTES % 11.5 % (2.0-8.0)
[2022-02-02 01:49] LABS: HEMATOCRIT. 43.5 % (36.0-48.0); HEMOGLOBIN. 13.5 g/dL (12.0-16.0); LYMPHOCYTES % 34.6 % (20.0-50.0); MEAN CORPUSCULAR VOLUME 87.4 fL (81.0-99.0); MEAN PLATELET VOLUME 9.5 fl (7.4-10.4); NEUTROPHILS % 51.6 % (40.0-76.0); PLATELET 111 x1000/uL (130-400); RED BLOOD CELL COUNT 4.97 mill/uL (4.2-5.4); RED CELL DISTRIBUTION WIDTH 19.8 % (11.6-14.6)
[2022-02-02] MEDS ORDERED: SODIUM CHLORIDE 0.45% 1,000 ML IV ONE (03:00)
[2022-02-02] MEDS ORDERED: VANCOMYCIN 1G PREMIX 200 ML IV ONE (03:15)
[2022-02-02] MEDS ORDERED: PIPERACILLIN/TAZ 3.375G PREMIX 50 ML IV ONE (03:15)
[2022-02-02 03:28] LABS: CLARITY URINE TURBID (CLEAR); COLOR URINE YELLOW (YELLOW); KETONES URINE TRACE (NEGATIVE); LEUKOCYTE ESTERASE URINE 2+ (NEGATIVE); NITRITE URINE POSITIVE (NEGATIVE); OCCULT BLOOD URINE 2+ (NEGATIVE); PH URINE 5.5 (4.5-8.0); PROTEIN URINE 3+ (NEGATIVE); SPECIFIC GRAVITY URINE 1.019 (1.005-1.030); UROBILINOGEN URINE 0.2 E.U./dL (0.2-1.0)
[2022-02-02] MEDS ORDERED: VANCOMYCIN 1,000 MG in DEXT 5% WATER 250 ML IV NR (03:45)
[2022-02-02 08:09] VITALS: BP 95/46
== END 2022-02-02 09:03 | disposition short-term general hospital (02) ==
LOC: ER 21:23
DX: A41.9 Sepsis, unspecified organism (principal); J18.9 Pneumonia, unspecified organism; N39.0 Urinary tract infection, site not specified; Z20.822 Contact with and (suspected) exposure to COVID-19; M25.561 Pain in right knee; M79.605 Pain in left leg; I69.951 Hemiplegia and hemiparesis following unspecified cerebrovascular disease affecting right dominant side; R00.0 Tachycardia, unspecified; Z85.9 Personal history of malignant neoplasm, unspecified; E11.9 Type 2 diabetes mellitus without complications; Z87.09 Personal history of other diseases of the respiratory system; Z79.899 Other long term (current) drug therapy
CPT/HCPCS: 36415; 71045; 80053; 81003; 83605; 83880; 84484; 85025; 87040; 87077; 87086; 87186; 87426; 93005; 93970; 96361; 96365; 96367; 99291; C9803; J2543; J3370; J7030; J7060

== ENCOUNTER 2023-09-27 18:09 | Emergency (ER) | payer MEDICAID, MEDICARE ==
[~2023-09-27] VITALS: Ht 182.9 cm; Wt 132.0 kg
[~2023-09-27 18:09] MED LIST changes: +DESM0.1T26 MT; -[UNRECOGNIZED DRUG - CODE] MT
[2023-09-27 18:12] VITALS: TEMP 98; O2SAT 98
[2023-09-27] MEDS ORDERED: KETOROLAC 30MG/ML VIAL IV STA (19:17)
[2023-09-27] MEDS ORDERED: CEFTRIAXONE 1GM/50ML 50 ML IV ONE (19:30)
[2023-09-27 20:51] LABS: HEMATOCRIT. 34.4 % (36.0-48.0); HEMOGLOBIN. 10.6 g/dL (12.0-16.0); MEAN CORPUSCULAR HEMOGLOBIN 25.4 pg (28.0-32.0); MEAN CORPUSCULAR HGB CONC 30.7 g/dL (31.0-37.0); MEAN CORPUSCULAR VOLUME 82.9 fL (81.0-99.0); MEAN PLATELET VOLUME 8.6 fl (7.4-10.4); PLATELET 207 x1000/uL (130-400); RED BLOOD CELL COUNT 4.15 mill/uL (4.2-5.4); RED CELL DISTRIBUTION WIDTH 18.7 % (11.6-14.6); WHITE BLOOD COUNT 5.5 x1000/uL (4.5-11.0)
[2023-09-27 20:52] LABS: DIFFERENTIAL COMMENT 1
[2023-09-27 20:55] LABS: CALCIUM 9.2 mg/dL (8.7-10.4)
[2023-09-27 21:00] LABS: CREATININE 1.2 mg/dL (0.6-1.0); INR 1.2; PROTHROMBIN TIME 12.8 sec (9.6-11.0)
[2023-09-27 21:10] LABS: ANISOCYTOSIS 1+; PLATELET ESTIMATE NORMAL
[2023-09-27] MEDS ORDERED: CEPH500T MT (23:07)
[2023-09-28 00:14] VITALS: BP 128/48; PULSE 68; RESP 18
[2023-09-28] MEDS ORDERED: VANCOMYCIN 1G PREMIX 200 ML IV NR (00:30)
[2023-09-28] MEDS ORDERED: VANCOMYCIN 1G PREMIX 200 ML IV SCH (01:30)
== END 2023-09-28 00:15 | disposition home or self-care (01) ==
LOC: ER 18:09
DX: L03.116 Cellulitis of left lower limb (principal); L03.115 Cellulitis of right lower limb; E11.9 Type 2 diabetes mellitus without complications; Z79.899 Other long term (current) drug therapy; Z98.890 Other specified postprocedural states; Z86.73 Personal history of transient ischemic attack (TIA), and cerebral infarction without residual deficits; Z86.59 Personal history of other mental and behavioral disorders; Z86.39 Personal history of other endocrine, nutritional and metabolic disease
CPT/HCPCS: 99284; 80048; 83605; 85025; 85610; 36415; 84145; 73600; J0696; J1885

== ENCOUNTER 2023-10-04 16:03 | Inpatient (IN) | payer MEDICARE, MEDICAID ==
[~2023-10-04] VITALS: Ht 167.6 cm; Wt 128.6 kg
[~2023-10-04 16:03] MED LIST changes: +CEPH500T MT
[2023-10-04] MEDS: IOHEXOL-350 100 ML BOTTLE ONE (16:50)
[2023-10-04 17:45] LABS: HEMATOCRIT. 34.1 % (36.0-48.0); HEMOGLOBIN. 10.7 g/dL (12.0-16.0); MEAN CORPUSCULAR HEMOGLOBIN 25.9 pg (28.0-32.0); MEAN CORPUSCULAR HGB CONC 31.3 g/dL (31.0-37.0); MEAN CORPUSCULAR VOLUME 82.7 fL (81.0-99.0); MEAN PLATELET VOLUME 8.6 fl (7.4-10.4); PLATELET 174 x1000/uL (130-400); RED BLOOD CELL COUNT 4.13 mill/uL (4.2-5.4); RED CELL DISTRIBUTION WIDTH 18.7 % (11.6-14.6); WHITE BLOOD COUNT 6.3 x1000/uL (4.5-11.0)
[2023-10-04 17:47] LABS: DIFFERENTIAL COMMENT 1
[2023-10-04 17:51] LABS: CHLORIDE 102 mEq/L (98-107); SODIUM 139 mEq/L (136-145)
[2023-10-04 17:52] LABS: CALCIUM 8.8 mg/dL (8.7-10.4); CARBON DIOXIDE 31 mEq/L (21-32)
[2023-10-04 17:55] LABS: INR 1.1; PROTHROMBIN TIME 12.3 sec (9.6-11.0)
[2023-10-04 17:57] LABS: CREATININE 1.2 mg/dL (0.6-1.0); GLUCOSE 85 mg/dL (70-105); UREA NITROGEN BLOOD 13 mg/dL (9-23)
[2023-10-04 18:07] LABS: PLATELET ESTIMATE NORMAL
[2023-10-04 18:18] LABS: ETHANOL BLOOD < 10 mg/dL (<10); TROPONIN I HIGH SENSITIVITY < 4 ng/L (3.0-34)
[2023-10-04] MEDS ORDERED: IOHEXOL-350 100 ML BOTTLE ONE (23:35)
[2023-10-05 05:49] VITALS: BP 133/35; PULSE 87; RESP 17; TEMP 97.8
[2023-10-05] MEDS ORDERED: ONDANSETRON HCL 4MG/2ML INJ IV PRN (06:15)
[2023-10-05] MEDS ORDERED: DOCUSATE SODIUM 100MG CAPSULE PO PRN (06:15)
[2023-10-05] MEDS ORDERED: CLONIDINE 0.1MG TABLET PO PRN (06:15)
[2023-10-05] MEDS ORDERED: ACETAMINOPHEN 325MG TABLET PO PRN (06:15)
[2023-10-05] MEDS ORDERED: GUAIFENESIN 200MG/10ML SUGAR FREE UDC PO PRN (06:15)
[2023-10-05] MEDS ORDERED: MAGNESIUM/ALUMINUM HYDROXIDE/SIMETHICONE 30ML UDC PO PRN (06:15)
[2023-10-05] MEDS ORDERED: IPRATROPIUM/ALBUTEROL 0.5-3(2.5)MG/3ML NEB HHN PRN (06:15)
[2023-10-05] MEDS ORDERED: ACETAMINOPHEN 650MG SUPP PR PRN ×2 (06:15)
[2023-10-05] MEDS: DEXT 5%/0.45% NACL 1000ML 1,000 ML IV SCH (07:14)
[2023-10-05 08:00] VITALS: BP 114/57; PULSE 91; RESP 20; TEMP 97.6
[2023-10-05] MEDS: ASPIRIN 81MG EC TABLET PO SCH (09:00)
[2023-10-05] MEDS ORDERED: FAMOTIDINE(NEO) 1MG/ML SUSP PO SCH (09:45)
[2023-10-05] MEDS: DESMOPRESSIN ACETATE 0.1MG TABLET PO SCH (10:00)
[2023-10-05] MEDS: FAMOTIDINE 20MG TABLET PO SCH (10:12)
[2023-10-05] MEDS: LEVOTHYROXINE SODIUM 137MCG TABLET PO SCH (10:13)
[2023-10-05] MEDS: CLOPIDOGREL 75MG TABLET PO SCH (10:13)
[2023-10-05] MEDS: ENOXAPARIN 30MG/0.3ML SYR SUBCUT SCH (10:13)
[2023-10-05] MEDS ORDERED: HYDRALAZINE HCL 25MG TABLET PO PRN (10:45)
[2023-10-05 12:00] VITALS: BP 120/64; PULSE 93; RESP 18; TEMP 97.4
[2023-10-05 12:17] LABS: BASOPHILS % 0.4 % (0.0-2.0); EOSINOPHILS % 2.3 % (0.0-5.0); HEMATOCRIT. 34.2 % (36.0-48.0); HEMOGLOBIN. 10.6 g/dL (12.0-16.0); LYMPHOCYTES % 30.3 % (20.0-50.0); MEAN CORPUSCULAR HEMOGLOBIN 25.7 pg (28.0-32.0); MEAN CORPUSCULAR HGB CONC 31.1 g/dL (31.0-37.0); MEAN CORPUSCULAR VOLUME 82.7 fL (81.0-99.0); MEAN PLATELET VOLUME 8.5 fl (7.4-10.4); MONOCYTES % 13.6 % (2.0-8.0); NEUTROPHILS % 53.4 % (40.0-76.0); PLATELET 175 x1000/uL (130-400); RED BLOOD CELL COUNT 4.14 mill/uL (4.2-5.4); RED CELL DISTRIBUTION WIDTH 18.8 % (11.6-14.6); WHITE BLOOD COUNT 5.5 x1000/uL (4.5-11.0)
[2023-10-05 12:22] LABS: CARBON DIOXIDE 33 mEq/L (21-32); CHLORIDE 105 mEq/L (98-107); POTASSIUM 4.2 mEq/L (3.5-5.1); SODIUM 142 mEq/L (136-145)
[2023-10-05 12:23] LABS: CALCIUM 8.7 mg/dL (8.7-10.4)
[2023-10-05 12:28] LABS: CREATININE 1.1 mg/dL (0.6-1.0); GLUCOSE 97 mg/dL (70-105); TRIGLYCERIDE 136 mg/dL (0-150); UREA NITROGEN BLOOD 9 mg/dL (9-23)
[2023-10-05 12:29] LABS: ALBUMIN 3.8 g/dL (3.2-4.8); LDL CHOLESTEROL 57 mg/dL (5-100)
[2023-10-05 12:30] LABS: CHOLESTEROL 85 mg/dL (<200); CREATINE KINASE 78 IU/L (34-145); HDL CHOLESTEROL < 20 mg/dL (>65)
[2023-10-05 12:32] LABS: THYROID STIMULATING HORMONE < 0.10 uIU/mL (0.55-4.78)
[2023-10-05] MEDS: METOCLOPRAMIDE HCL 10MG TABLET PO SCH (13:00)
[2023-10-05 16:00] VITALS: BP 118/62; PULSE 92; RESP 18; TEMP 97.9
[2023-10-05] MEDS: HYDROCORTISONE 10MG TABLET PO SCH (17:07)
[2023-10-05] MEDS ORDERED: NALOXONE HCL 0.4MG/ML VIAL IV PRN (19:00)
[2023-10-05 20:00] VITALS: BP 134/50; PULSE 94; RESP 17; TEMP 99
[2023-10-05] MEDS ORDERED: ATORVASTATIN CALCIUM 40MG TABLET PO SCH (21:00)
[2023-10-05] MEDS: ATORVASTATIN CALCIUM 40MG TABLET PO SCH (21:30)
[2023-10-05 22:33] LABS: TROPONIN I HIGH SENSITIVITY < 4 ng/L (3.0-34)
[2023-10-06] VITALS: BP 108/40; PULSE 96; RESP 18; TEMP 99.3
[2023-10-06 04:00] VITALS: BP 104/48; PULSE 94; RESP 18; TEMP 98.9
[2023-10-06 06:47] LABS: HEMATOCRIT. 35.6 % (36.0-48.0); HEMOGLOBIN. 10.9 g/dL (12.0-16.0); MEAN CORPUSCULAR HEMOGLOBIN 25.8 pg (28.0-32.0); MEAN CORPUSCULAR HGB CONC 30.7 g/dL (31.0-37.0); MEAN PLATELET VOLUME 8.9 fl (7.4-10.4); PLATELET 164 x1000/uL (130-400); RED BLOOD CELL COUNT 4.24 mill/uL (4.2-5.4); RED CELL DISTRIBUTION WIDTH 19.1 % (11.6-14.6); WHITE BLOOD COUNT 4.4 x1000/uL (4.5-11.0)
[2023-10-06 06:54] LABS: CHLORIDE 108 mEq/L (98-107); POTASSIUM 4.5 mEq/L (3.5-5.1); SODIUM 145 mEq/L (136-145)
[2023-10-06 06:57] LABS: CALCIUM 8.7 mg/dL (8.7-10.4); CARBON DIOXIDE 32 mEq/L (21-32)
[2023-10-06 07:02] LABS: ALANINE AMINOTRANSFERASE 41 IU/L (10-49); CREATININE 1.1 mg/dL (0.6-1.0); GLUCOSE 96 mg/dL (70-105); TRIGLYCERIDE 143 mg/dL (0-150); UREA NITROGEN BLOOD 9 mg/dL (9-23)
[2023-10-06 07:03] LABS: LDL CHOLESTEROL 60 mg/dL (5-100); TROPONIN I HIGH SENSITIVITY < 4 ng/L (3.0-34)
[2023-10-06 07:04] LABS: ALBUMIN 3.7 g/dL (3.2-4.8); ASPARTATE AMINOTRANSFERASE 79 IU/L (<34); BILIRUBIN TOTAL 0.8 mg/dL (0.1-1.0); CHOLESTEROL 89 mg/dL (<200); HDL CHOLESTEROL < 20 mg/dL (>65); PROTEIN TOTAL 6.9 g/dL (6.0-8.3)
[2023-10-06 07:42] LABS: DIFFERENTIAL COMMENT 1
[2023-10-06 08:00] VITALS: BP 95/48; PULSE 92; RESP 18; TEMP 98
[2023-10-06] MEDS: HYDROCORTISONE 10MG TABLET PO SCH (09:19)
[2023-10-06] MEDS: CHOLECALCIFEROL (D3) 1000 UNIT TABLET PO SCH (09:23)
[2023-10-06 11:51] LABS: T4 FREE 1.47 ng/dL (0.89-1.76)
[2023-10-06 12:00] VITALS: BP 112/45; PULSE 97; RESP 20; TEMP 98.2
[2023-10-06 16:00] VITALS: BP 108/56; PULSE 96; RESP 20; TEMP 97.6
[2023-10-06 20:00] VITALS: BP 103/44; PULSE 88; RESP 18; TEMP 98
[2023-10-06] MEDS: ACETAMINOPHEN 325MG TABLET PO PRN (21:01)
[2023-10-06 21:26] LABS: ANISOCYTOSIS 1+; PLATELET ESTIMATE NORMAL
[2023-10-07] VITALS: BP 106/61; PULSE 83; RESP 18; TEMP 98.6
[2023-10-07] MEDS: ZOLPIDEM TARTRATE 5MG TABLET PO NR (00:34)
[2023-10-07 04:00] VITALS: BP 121/53; PULSE 82; RESP 18; TEMP 98.1
[2023-10-07] MEDS: HYDROCODONE/ACETAMINOPHEN 5/325MG TABLET PO PRN (05:44)
[2023-10-07 08:00] VITALS: BP 122/58; PULSE 83; RESP 18; TEMP 97.3
[2023-10-07] MEDS ORDERED: LIP40 PO (10:37)
[2023-10-07] MEDS ORDERED: ASPI-1406 PO (10:37)
[2023-10-07] MEDS ORDERED: CLOP-31 PO ×2 (10:37→10:40)
[2023-10-07 12:00] VITALS: BP 124/53; PULSE 64; RESP 17; TEMP 97.3
[2023-10-07 13:23] LABS: BASOPHILS % 0.2 % (0.0-2.0); EOSINOPHILS % 3.4 % (0.0-5.0); HEMATOCRIT. 32.3 % (36.0-48.0); HEMOGLOBIN. 9.9 g/dL (12.0-16.0); LYMPHOCYTES % 35.5 % (20.0-50.0); MEAN CORPUSCULAR HGB CONC 30.7 g/dL (31.0-37.0); MEAN CORPUSCULAR VOLUME 84.5 fL (81.0-99.0); MEAN PLATELET VOLUME 8.6 fl (7.4-10.4); MONOCYTES % 13.9 % (2.0-8.0); PLATELET 145 x1000/uL (130-400); RED BLOOD CELL COUNT 3.82 mill/uL (4.2-5.4); RED CELL DISTRIBUTION WIDTH 19.2 % (11.6-14.6)
[2023-10-07 13:32] LABS: CHLORIDE 106 mEq/L (98-107); POTASSIUM 3.9 mEq/L (3.5-5.1); SODIUM 144 mEq/L (136-145)
[2023-10-07 13:33] LABS: CALCIUM 8.4 mg/dL (8.7-10.4); CARBON DIOXIDE 35 mEq/L (21-32)
[2023-10-07 13:38] LABS: GLUCOSE 114 mg/dL (70-105); UREA NITROGEN BLOOD 6 mg/dL (9-23)
[2023-10-07 14:58] VITALS: BP 124/53; PULSE 64; TEMP 97.3; O2SAT 100
[2023-10-07 16:00] VITALS: BP 129/62; PULSE 80; RESP 18; TEMP 98.2
== END 2023-10-07 17:45 | DRG 64 ==
LOC: ER 16:03 → 7EST 17:39 → EDBEDREQTM 17:40 → EDBEDREQ 17:40
PROVIDERS: ADMIT Specialist; ATTEND Specialist
DX: I63.9 Cerebral infarction, unspecified (principal); I46.9 Cardiac arrest, cause unspecified; I69.351 Hemiplegia and hemiparesis following cerebral infarction affecting right dominant side; N17.9 Acute kidney failure, unspecified; I42.9 Cardiomyopathy, unspecified; Z68.42 Body mass index [BMI] 45.0-49.9, adult; R29.708 NIHSS score 8; R29.810 Facial weakness; E66.01 Morbid (severe) obesity due to excess calories; D64.9 Anemia, unspecified; N18.9 Chronic kidney disease, unspecified; E11.22 Type 2 diabetes mellitus with diabetic chronic kidney disease; I12.9 Hypertensive chronic kidney disease with stage 1 through stage 4 chronic kidney disease, or unspecified chronic kidney disease; E04.1 Nontoxic single thyroid nodule; F20.9 Schizophrenia, unspecified; E03.9 Hypothyroidism, unspecified; I48.91 Unspecified atrial fibrillation; D36.7 Benign neoplasm of other specified sites; Z79.899 Other long term (current) drug therapy
CPT/HCPCS: 36415; 70496; 70498; 71045; 80048; 80053; 80061; 80320; 82040; 82550; 83036; 84439; 84443; 84481; 84484; 85025; 92610; 93005; 93306; 97166; 99291; J1650; J8597; Q9967; G0480

== ENCOUNTER 2024-03-31 12:19 | Emergency (ER) | payer MEDICARE, MEDICAID ==
[~2024-03-31] VITALS: Ht 167.6 cm; Wt 90.0 kg
[~2024-03-31 12:19] MED LIST changes: +ASPI-1406 PO; -CEPH500T MT; +CLOP-31 PO; +DESM0.1T26 PO; +LIP40 PO
[2024-03-31 12:28] VITALS: BP 158/54; PULSE 75; RESP 16; TEMP 98.4; O2SAT 98
[2024-03-31] MEDS ORDERED: AMOX1TAB16 MT (13:18)
[2024-03-31] MEDS: AMOXICILLIN/POTASSIUM CLAVULANATE 875/125MG TAB PO ONE (13:43)
== END 2024-03-31 16:32 | disposition home or self-care (01) ==
LOC: ER 12:19
DX: K11.20 Sialoadenitis, unspecified (principal); J44.9 Chronic obstructive pulmonary disease, unspecified; E78.00 Pure hypercholesterolemia, unspecified; I12.0 Hypertensive chronic kidney disease with stage 5 chronic kidney disease or end stage renal disease; N18.6 End stage renal disease; Z86.73 Personal history of transient ischemic attack (TIA), and cerebral infarction without residual deficits; Z99.2 Dependence on renal dialysis; Z79.82 Long term (current) use of aspirin; Z79.899 Other long term (current) drug therapy
CPT/HCPCS: 99283

== ENCOUNTER 2024-12-28 12:44 | Inpatient (IN) | payer MEDICARE, MEDICAID ==
[~2024-12-28] VITALS: Ht 170.2 cm; Wt 136.1 kg
[~2024-12-28 12:44] MED LIST changes: -DESM0.1T26 MT
[2024-12-28 13:42] LABS: HEMATOCRIT. 33.7 % (36.0-48.0); HEMOGLOBIN. 10.5 g/dL (12.0-16.0); MEAN PLATELET VOLUME 8.3 fl (7.4-10.4); PLATELET 102 x1000/uL (130-400); RED BLOOD CELL COUNT 4.44 mill/uL (4.2-5.4); RED CELL DISTRIBUTION WIDTH 18.7 % (11.6-14.6)
[2024-12-28 13:56] LABS: CREATININE 1.0 mg/dL (0.6-1.0); TROPONIN I HIGH SENSITIVITY 5 ng/L (3.0-34)
[2024-12-28 13:57] LABS: INR 1.0; UREA NITROGEN BLOOD 11 mg/dL (9-23)
[2024-12-28 13:58] LABS: ASPARTATE AMINOTRANSFERASE 28 IU/L (<34)
[2024-12-28 13:59] LABS: BILIRUBIN DIRECT 0.2 mg/dL (<=3.0); BILIRUBIN TOTAL 0.6 mg/dL (0.1-1.0); PROTEIN TOTAL 7.9 g/dL (6.0-8.3)
[2024-12-28 14:23] LABS: BAND% 26.0 % (1.0-6.0); LYMPHOCYTES % MANUAL 4.0 % (20.0-60.0); METAMYELOCYTES % 1.0 % (0-0); MONOCYTES % MANUAL 4.0 % (2.0-8.0); NEUTROPHILS % MANUAL 65.0 % (45.0-75.0); PLATELET ESTIMATE SLIGHTLY DECREASED
[2024-12-28] MEDS ORDERED: CEFTRIAXONE 2,000 MG in DEXT 5% WATER 100 ML IV SCH (14:30)
[2024-12-28] MEDS ORDERED: DOCUSATE SODIUM 100MG CAPSULE PO PRN (15:45)
[2024-12-28] MEDS ORDERED: IPRATROPIUM/ALBUTEROL 0.5-3(2.5)MG/3ML NEB HHN PRN (15:45)
[2024-12-28] MEDS ORDERED: ONDANSETRON HCL 4MG/2ML INJ IV PRN (15:45)
[2024-12-28] MEDS ORDERED: ACETAMINOPHEN 325MG TABLET PO PRN ×2 (15:45)
[2024-12-28] MEDS: CEFTRIAXONE 2GM/50ML 50ML IV SCH (15:45)
[2024-12-28] MEDS ORDERED: IPRATROPIUM/ALBUTEROL 0.5-3(2.5)MG/3ML NEB HHN SCH (16:00)
[2024-12-28] MEDS: PANTOPRAZOLE SODIUM 40 MG/VIAL IV SCH (16:00)
[2024-12-28] MEDS ORDERED: DIATR MEGLU/DIATRIZOATE SOLN 30ML ONE (16:07)
[2024-12-28 16:14] LABS: BG BASE EXCESS 6.2 mmol/L (-2.0-3.0); BG CARBOXYHEMOGLOBIN 1.2 % (0.5-1.5); BG DEOXYHEMOGLOBIN 9.1 % (0.0-5.0); BG FLOW(L/min) 3.00 L/min; BG FRACTION INSPIRED OXYGEN 36; BG HCO3 ACT 35.5 mmol/L (21.0-28.0); BG METHEMOGLOBIN 0.5 % (0.5-1.5); BG OXYGEN SATURATION 90.7 % (94.0-98.0); BG OXYHEMOGLOBIN 89.2 % (94.0-98.0); BG PCO2 79.8 mmHg (32.0-45.0); BG PH 7.266 (7.350-7.450); BG PO2 68.0 mmHg (83.0-108.0); BG SAMPLE SITE LEFT RADIAL; BG TOTAL HEMOGLOBIN 11.7 g/dL (12.0-16.0); BG VENT MODE NASAL CANNULA
[2024-12-28] MEDS: CLOPIDOGREL 75MG TABLET PO SCH (16:30)
[2024-12-28] MEDS: ASPIRIN 81MG EC TABLET PO SCH (16:30)
[2024-12-28] MEDS ORDERED: ENOXAPARIN 120MG/0.8ML SYR SUBCUT SCH (16:49)
[2024-12-28] MEDS: BLOOD SUGAR DIAGNOSTIC STRIP TEST SCH ×2 (17:00→20:00)
[2024-12-28 17:15] LABS: PHOSPHORUS 3.8 mg/dL (2.5-4.9)
[2024-12-28] MEDS: METHYLPREDNISOLONE SOD SUCC 125MG/2ML (ACT-O-VIAL) IV NR (17:41)
[2024-12-28] MEDS: DEXT 5%/0.45% NACL 1000ML 1,000 ML IV SCH (17:45)
[2024-12-28] MEDS ORDERED: BROMOCRIPTINE MESYLATE 2.5 MG TABLET PO SCH (19:00)
[2024-12-28 19:50] VITALS: RESP 31
[2024-12-28 20:00] VITALS: BP 91/41; PULSE 58; PULSE 67; RESP 33; RESP 35; TEMP 36.2; TEMP 36.2512; O2SAT 93
[2024-12-28] MEDS: BUDESONIDE 0.5MG/2ML NEB HHN SCH (20:16)
[2024-12-28] MEDS: IPRATROPIUM/ALBUTEROL 0.5-3(2.5)MG/3ML NEB HHN SCH (20:17)
[2024-12-28] MEDS: INSULIN LISPRO 100 UNITS/ML SUBCUT SCH (21:00)
[2024-12-28] MEDS: HYDROCORTISONE 10MG TABLET PO SCH (21:00)
[2024-12-28] MEDS ORDERED: ENOXAPARIN 30MG/0.3ML SYR SUBCUT SCH (21:00)
[2024-12-28 22:00] VITALS: PULSE 67; RESP 32; O2SAT 94
[2024-12-28 22:22] LABS: BG BASE EXCESS 6.7 mmol/L (-2.0-3.0); BG CARBOXYHEMOGLOBIN 1.9 % (0.5-1.5); BG DEOXYHEMOGLOBIN 6.5 % (0.0-5.0); BG FRACTION INSPIRED OXYGEN 40; BG HCO3 ACT 37.0 mmol/L (21.0-28.0); BG METHEMOGLOBIN 0.1 % (0.5-1.5); BG OXYGEN SATURATION 93.4 % (94.0-98.0); BG OXYHEMOGLOBIN 91.5 % (94.0-98.0); BG PCO2 90.1 mmHg (32.0-45.0); BG PH 7.231 (7.350-7.450); BG PO2 77.2 mmHg (83.0-108.0); BG SAMPLE SITE RIGHT RADIAL; BG TOTAL HEMOGLOBIN 11.7 g/dL (12.0-16.0); BG TOTAL RESPIRATORY RATE 35 b/min; BG VENT MODE MASK - BIPAP; BG VENT RATE 14.0 set
[2024-12-28 22:48] VITALS: RESP 17
[2024-12-28] MEDS: PIPERACILLIN/TAZO 3.375G/50ML 50 ML IV SCH (23:02)
[2024-12-28] MEDS: DESMOPRESSIN ACETATE 0.1MG TABLET PO SCH (23:04)
[2024-12-28] MEDS: AZITHROMYCIN 500 MG TABLET PO SCH (23:04)
[2024-12-28] MEDS: ATORVASTATIN CALCIUM 40MG TABLET PO SCH (23:04)
[2024-12-28 23:45] VITALS: RESP 21
[2024-12-29] VITALS (17 sets, daily range): BP systolic 91–142; BP diastolic 45–83; PULSE 56–91; RESP 16–31; TEMP 36.1–37.5; O2SAT 94–99
[2024-12-29] MEDS: POLYVINYL ALCOHOL OPHTH DROPS 15ML EACHEYE SCH
[2024-12-29] MEDS ORDERED: DEXTROSE 50% WATER 50ML SYRINGE IV PRN (03:15)
[2024-12-29 04:26] LABS: BG BASE EXCESS 6.4 mmol/L (-2.0-3.0); BG CARBOXYHEMOGLOBIN 1.7 % (0.5-1.5); BG DEOXYHEMOGLOBIN 8.1 % (0.0-5.0); BG FRACTION INSPIRED OXYGEN 40; BG HCO3 ACT 36.0 mmol/L (21.0-28.0); BG METHEMOGLOBIN 0.1 % (0.5-1.5); BG OXYGEN SATURATION 91.8 % (94.0-98.0); BG OXYHEMOGLOBIN 90.1 % (94.0-98.0); BG PCO2 83.9 mmHg (32.0-45.0); BG PH 7.251 (7.350-7.450); BG PO2 69.0 mmHg (83.0-108.0); BG SAMPLE SITE RIGHT RADIAL; BG TOTAL HEMOGLOBIN 11.6 g/dL (12.0-16.0); BG TOTAL RESPIRATORY RATE 23 b/min; BG VENT MODE MASK - BIPAP; BG VENT RATE 16.0 set
[2024-12-29] MEDS ORDERED: LIDOCAINE HCL/PF 1% 2ML VIAL ONE (05:00)
[2024-12-29 06:18] LABS: CLARITY URINE CLEAR (CLEAR); COLOR URINE YELLOW (YELLOW); GLUCOSE URINE NEGATIVE (NEGATIVE); KETONES URINE NEGATIVE (NEGATIVE); LEUKOCYTE ESTERASE URINE NEGATIVE (NEGATIVE); NITRITE URINE NEGATIVE (NEGATIVE); OCCULT BLOOD URINE 1+ (NEGATIVE); PH URINE 6.0 (4.5-8.0); PROTEIN URINE 2+ (NEGATIVE); SPECIFIC GRAVITY URINE 1.009 (1.005-1.030); UROBILINOGEN URINE 0.2 E.U./dL (0.2-1.0)
[2024-12-29 06:27] LABS: *AMPHETAMINES SCREEN URINE NEGATIVE (NEGATIVE); *BARBITURATES SCREEN URINE NEGATIVE (NEGATIVE); *BENZODIAZEPINES SCREEN URINE NEGATIVE (NEGATIVE); *COCAINE SCREEN URINE NEGATIVE (NEGATIVE); CANNABINOID URINE SCREEN NEGATIVE (NEGATIVE); ECSTASY MDMA SCREEN URINE NEGATIVE (NEGATIVE); METHADONE URINE SCREEN NEGATIVE (NEGATIVE); OPIATES URINE SCREEN NEGATIVE (NEGATIVE); PHENCYCLIDINE URINE SCREEN NEGATIVE (NEGATIVE)
[2024-12-29 07:23] LABS: SQUAMOUS EPITHELIAL CELL URINE FEW /lpf (RARE/1+)
[2024-12-29 07:24] LABS: BACTERIA URINE NONE SEEN; RBC URINE 0-2 /hpf (0-2); WBC URINE 0-2 /hpf (0-2)
[2024-12-29] MEDS: BLOOD SUGAR DIAGNOSTIC STRIP TEST SCH (07:30)
[2024-12-29] MEDS: INSULIN LISPRO 100 UNITS/ML SUBCUT SCH (08:00)
[2024-12-29 09:02] LABS: BG BASE EXCESS 5.1 mmol/L (-2.0-3.0); BG CARBOXYHEMOGLOBIN 1.2 % (0.5-1.5); BG DEOXYHEMOGLOBIN 2.9 % (0.0-5.0); BG FRACTION INSPIRED OXYGEN 40; BG HCO3 ACT 31.8 mmol/L (21.0-28.0); BG METHEMOGLOBIN 0.3 % (0.5-1.5); BG OXYGEN SATURATION 97.1 % (94.0-98.0); BG OXYHEMOGLOBIN 95.6 % (94.0-98.0); BG PCO2 57.2 mmHg (32.0-45.0); BG PH 7.363 (7.350-7.450); BG PO2 87.7 mmHg (83.0-108.0); BG SAMPLE SITE LEFT RADIAL; BG TOTAL HEMOGLOBIN 11.4 g/dL (12.0-16.0); BG TOTAL RESPIRATORY RATE 30 b/min; BG VENT MODE MASK - BIPAP; BG VENT RATE 30.0 set
[2024-12-29] MEDS: FERROUS SULFATE 325MG TABLET PO SCH (10:50)
[2024-12-29] MEDS: ENOXAPARIN 120MG/0.8ML SYR SUBCUT SCH (10:52)
[2024-12-29] MEDS: LEVOTHYROXINE SODIUM 137MCG TABLET PO SCH (10:53)
[2024-12-29] MEDS: LIDOCAINE 5% PATCH TOP NR (11:51)
[2024-12-29 11:56] LABS: HEMATOCRIT. 33.2 % (36.0-48.0); HEMOGLOBIN. 10.4 g/dL (12.0-16.0); MEAN PLATELET VOLUME 8.7 fl (7.4-10.4); PLATELET 133 x1000/uL (130-400); RED BLOOD CELL COUNT 4.37 mill/uL (4.2-5.4); RED CELL DISTRIBUTION WIDTH 18.7 % (11.6-14.6)
[2024-12-29 12:20] LABS: LDL CHOLESTEROL 80 mg/dL (5-100); TRIGLYCERIDE 107 mg/dL (0-150); TROPONIN I HIGH SENSITIVITY < 4 ng/L (3.0-34); UREA NITROGEN BLOOD 15 mg/dL (9-23)
[2024-12-29 12:23] LABS: T4 FREE 0.94 ng/dL (0.89-1.76)
[2024-12-29 12:38] LABS: CREATININE 1.6 mg/dL (0.6-1.0)
[2024-12-29 13:24] LABS: BAND% 25.0 % (1.0-6.0); LYMPHOCYTES % MANUAL 7.0 % (20.0-60.0); MONOCYTES % MANUAL 1.0 % (2.0-8.0); NEUTROPHILS % MANUAL 67.0 % (45.0-75.0); PLATELET ESTIMATE NORMAL
[2024-12-29] MEDS: GUAIFENESIN 600MG ER TABLET PO SCH (22:39)
[2024-12-30] VITALS (15 sets, daily range): BP systolic 96–122; BP diastolic 52–72; PULSE 61–80; RESP 18–28; TEMP 36.4–36.8; O2SAT 96–100
[2024-12-30 07:43] LABS: BASOPHILS % 0.1 % (0.0-2.0); EOSINOPHILS % 0.1 % (0.0-5.0); HEMATOCRIT. 32.5 % (36.0-48.0); HEMOGLOBIN. 10.0 g/dL (12.0-16.0); LYMPHOCYTES % 18.9 % (20.0-50.0); MEAN PLATELET VOLUME 8.7 fl (7.4-10.4); MONOCYTES % 10.3 % (2.0-8.0); NEUTROPHILS % 70.6 % (40.0-76.0); PLATELET 140 x1000/uL (130-400); RED BLOOD CELL COUNT 4.22 mill/uL (4.2-5.4); RED CELL DISTRIBUTION WIDTH 19.0 % (11.6-14.6)
[2024-12-30 08:02] LABS: CREATININE 1.5 mg/dL (0.6-1.0)
[2024-12-30 08:03] LABS: UREA NITROGEN BLOOD 19 mg/dL (9-23)
[2024-12-30 08:06] LABS: PHOSPHORUS 3.9 mg/dL (2.5-4.9)
[2024-12-30] MEDS: BROMOCRIPTINE MESYLATE 2.5 MG TABLET PO SCH (11:59)
[2024-12-30 13:21] LABS: BG BASE EXCESS 8.1 mmol/L (-2.0-3.0); BG CARBOXYHEMOGLOBIN 0.7 % (0.5-1.5); BG DEOXYHEMOGLOBIN 1.8 % (0.0-5.0); BG FLOW(L/min) 30.00 L/min; BG FRACTION INSPIRED OXYGEN 60; BG HCO3 ACT 37.1 mmol/L (21.0-28.0); BG METHEMOGLOBIN 0.3 % (0.5-1.5); BG OXYGEN SATURATION 98.2 % (94.0-98.0); BG OXYHEMOGLOBIN 97.2 % (94.0-98.0); BG PCO2 81.7 mmHg (32.0-45.0); BG PH 7.275 (7.350-7.450); BG PO2 113.3 mmHg (83.0-108.0); BG SAMPLE SITE RIGHT RADIAL; BG TOTAL HEMOGLOBIN 10.5 g/dL (12.0-16.0); BG VENT MODE HIGH FLOW
[2024-12-30 19:08] LABS: BG BASE EXCESS 14.1 mmol/L (-2.0-3.0); BG CARBOXYHEMOGLOBIN 1.2 % (0.5-1.5); BG DEOXYHEMOGLOBIN 2.7 % (0.0-5.0); BG FLOW(L/min) 30.00 L/min; BG FRACTION INSPIRED OXYGEN 60; BG HCO3 ACT 44.5 mmol/L (21.0-28.0); BG METHEMOGLOBIN 0.1 % (0.5-1.5); BG OXYGEN SATURATION 97.3 % (94.0-98.0); BG OXYHEMOGLOBIN 96.0 % (94.0-98.0); BG PCO2 100.3 mmHg (32.0-45.0); BG PH 7.265 (7.350-7.450); BG PO2 98.1 mmHg (83.0-108.0); BG SAMPLE SITE RIGHT RADIAL; BG TOTAL HEMOGLOBIN 10.8 g/dL (12.0-16.0); BG VENT MODE HIGH FLOW
[2024-12-30] MEDS: QUETIAPINE FUMARATE 25MG TABLET PO SCH (20:26)
[2024-12-31] VITALS (15 sets, daily range): BP systolic 102–128; BP diastolic 50–94; PULSE 59–77; RESP 20–33; TEMP 36.1–37.2; O2SAT 96–100
[2024-12-31 05:38] LABS: BASOPHILS % 0.2 % (0.0-2.0); EOSINOPHILS % 0.9 % (0.0-5.0); HEMATOCRIT. 30.6 % (36.0-48.0); HEMOGLOBIN. 9.4 g/dL (12.0-16.0); LYMPHOCYTES % 22.6 % (20.0-50.0); MEAN PLATELET VOLUME 8.4 fl (7.4-10.4); MONOCYTES % 9.9 % (2.0-8.0); NEUTROPHILS % 66.4 % (40.0-76.0); PLATELET 119 x1000/uL (130-400); RED BLOOD CELL COUNT 3.95 mill/uL (4.2-5.4); RED CELL DISTRIBUTION WIDTH 19.6 % (11.6-14.6)
[2024-12-31 06:20] LABS: CREATININE 1.1 mg/dL (0.6-1.0); UREA NITROGEN BLOOD 20 mg/dL (9-23)
[2024-12-31] MEDS ORDERED: SIMETHICONE 80MG TABLET CHEW PO PRN (12:15)
[2024-12-31] MEDS ORDERED: LIDOCAINE HCL 1% 10 MG/ML 10ML VIAL ONE (14:21)
[2024-12-31] MEDS ORDERED: OXYMETAZOLINE HCL NASAL SPRAY 15ML BOTHNSTRLS PRN (16:15)
[2024-12-31] MEDS ORDERED: SODIUM CHLORIDE 45ML SPRAY BOTHNSTRLS PRN (16:15)
[2024-12-31] MEDS: FERROUS SULFATE 325MG TABLET PO SCH (17:23)
[2024-12-31] MEDS: ASCORBIC ACID 250 MG TABLET PO SCH (17:23)
[2024-12-31 19:30] LABS: BG BASE EXCESS 5.9 mmol/L (-2.0-3.0); BG CARBOXYHEMOGLOBIN 0.8 % (0.5-1.5); BG DEOXYHEMOGLOBIN 3.4 % (0.0-5.0); BG FRACTION INSPIRED OXYGEN 40; BG HCO3 ACT 34.3 mmol/L (21.0-28.0); BG METHEMOGLOBIN 0.3 % (0.5-1.5); BG OXYGEN SATURATION 96.6 % (94.0-98.0); BG OXYHEMOGLOBIN 95.5 % (94.0-98.0); BG PCO2 72.7 mmHg (32.0-45.0); BG PH 7.291 (7.350-7.450); BG PO2 91.2 mmHg (83.0-108.0); BG SAMPLE SITE RIGHT RADIAL; BG TOTAL HEMOGLOBIN 10.5 g/dL (12.0-16.0); BG VENT MODE MASK - BIPAP; BG VENT RATE 24.0 set
[2025-01-01] VITALS (17 sets, daily range): BP systolic 108–154; BP diastolic 58–84; PULSE 55–67; RESP 21–34; TEMP 36.4–37.1; O2SAT 95–98
[2025-01-01 08:35] LABS: HEMATOCRIT. 29.1 % (36.0-48.0); HEMOGLOBIN. 8.7 g/dL (12.0-16.0); MEAN PLATELET VOLUME 8.0 fl (7.4-10.4); PLATELET 96 x1000/uL (130-400); RED BLOOD CELL COUNT 3.77 mill/uL (4.2-5.4); RED CELL DISTRIBUTION WIDTH 19.0 % (11.6-14.6)
[2025-01-01 08:57] LABS: CREATININE 0.9 mg/dL (0.6-1.0); UREA NITROGEN BLOOD 15 mg/dL (9-23)
[2025-01-01 08:59] LABS: ASPARTATE AMINOTRANSFERASE 18 IU/L (<34); BILIRUBIN DIRECT 0.1 mg/dL (<=3.0); BILIRUBIN TOTAL 0.4 mg/dL (0.1-1.0); PROTEIN TOTAL 7.2 g/dL (6.0-8.3)
[2025-01-01 09:01] LABS: FOLIC ACID (FOLATE) SERUM 9.01 ng/mL (>5.38); VITAMIN B12 SERUM 369 pg/mL (211-911)
[2025-01-01] MEDS: CYANOCOBALAMIN 1000MCG/ML VIAL IM SCH (10:26)
[2025-01-01 11:01] LABS: BAND% 15.0 % (1.0-6.0); EOSINOPHILS % MANUAL 1.0 % (0.0-5.0); LYMPHOCYTES % MANUAL 35.0 % (20.0-60.0); MONOCYTES % MANUAL 7.0 % (2.0-8.0); NEUTROPHILS % MANUAL 42.0 % (45.0-75.0)
[2025-01-01 11:02] LABS: PLATELET ESTIMATE DECREASED
[2025-01-01 11:59] LABS: BG BASE EXCESS 10.8 mmol/L (-2.0-3.0); BG CARBOXYHEMOGLOBIN 0.9 % (0.5-1.5); BG DEOXYHEMOGLOBIN 5.4 % (0.0-5.0); BG FRACTION INSPIRED OXYGEN 40; BG HCO3 ACT 39.5 mmol/L (21.0-28.0); BG METHEMOGLOBIN 0.3 % (0.5-1.5); BG OXYGEN SATURATION 94.5 % (94.0-98.0); BG OXYHEMOGLOBIN 93.4 % (94.0-98.0); BG PCO2 80.9 mmHg (32.0-45.0); BG PH 7.307 (7.350-7.450); BG PO2 75.7 mmHg (83.0-108.0); BG SAMPLE SITE RIGHT RADIAL; BG TOTAL HEMOGLOBIN 10.3 g/dL (12.0-16.0); BG TOTAL RESPIRATORY RATE 26 b/min; BG VENT MODE MASK - BIPAP; BG VENT RATE 24.0 set
[2025-01-01 17:20] LABS: INFLUENZA TYPE A Presumptive Negative (Pres. Neg.); INFLUENZA TYPE B Presumptive Negative (Pres. Neg.)
[2025-01-01 17:21] LABS: RESPIRATORY SYNCYTIAL VIRUS Not Detected (Not Detectd)
[2025-01-01] MEDS: APIXABAN 5 MG TABLET PO SCH (21:00)
[2025-01-01 22:45] LABS: PLATELET 89 x1000/uL (130-400); RED BLOOD CELL COUNT 3.54 mill/uL (4.2-5.4); RED CELL DISTRIBUTION WIDTH 18.7 % (11.6-14.6)
[2025-01-01] MEDS: DEXTROSE 50% WATER 50ML SYRINGE IV PRN (23:36)
[2025-01-01] MEDS: CLONIDINE 0.1MG TABLET PO PRN (23:42)
[2025-01-02] VITALS (15 sets, daily range): BP systolic 107–188; BP diastolic 56–104; PULSE 56–72; RESP 20–31; TEMP 36.1–36.6; O2SAT 93–100
[2025-01-02 11:30] LABS: BG BASE EXCESS -0.7 mmol/L (-2.0-3.0); BG CARBOXYHEMOGLOBIN 1.8 % (0.5-1.5); BG DEOXYHEMOGLOBIN 2.7 % (0.0-5.0); BG FRACTION INSPIRED OXYGEN 40; BG HCO3 ACT 28.4 mmol/L (21.0-28.0); BG METHEMOGLOBIN 0.3 % (0.5-1.5); BG OXYGEN SATURATION 97.2 % (94.0-98.0); BG OXYHEMOGLOBIN 95.2 % (94.0-98.0); BG PCO2 75.1 mmHg (32.0-45.0); BG PH 7.196 (7.350-7.450); BG PO2 97.5 mmHg (83.0-108.0); BG SAMPLE SITE LEFT RADIAL; BG TOTAL HEMOGLOBIN 9.7 g/dL (12.0-16.0); BG TOTAL RESPIRATORY RATE 24 b/min; BG VENT MODE MASK - BIPAP; BG VENT RATE 24.0 set
[2025-01-02 17:32] LABS: BG BASE EXCESS 8.9 mmol/L (-2.0-3.0); BG CARBOXYHEMOGLOBIN 1.8 % (0.5-1.5); BG DEOXYHEMOGLOBIN 4.1 % (0.0-5.0); BG FRACTION INSPIRED OXYGEN 40; BG HCO3 ACT 37.4 mmol/L (21.0-28.0); BG METHEMOGLOBIN 0.0 % (0.5-1.5); BG OXYGEN SATURATION 95.8 % (94.0-98.0); BG OXYHEMOGLOBIN 94.1 % (94.0-98.0); BG PCO2 80.4 mmHg (32.0-45.0); BG PH 7.286 (7.350-7.450); BG PO2 86.3 mmHg (83.0-108.0); BG SAMPLE SITE LEFT RADIAL; BG TOTAL HEMOGLOBIN 9.4 g/dL (12.0-16.0); BG VENT MODE MASK - BIPAP; BG VENT RATE 28.0 set
[2025-01-02] MEDS: QUETIAPINE FUMARATE 25MG TABLET PO SCH (20:58)
[2025-01-03] VITALS (13 sets, daily range): BP systolic 116–143; BP diastolic 60–72; PULSE 56–68; RESP 15–32; TEMP 35.9–36.6; O2SAT 92–98
[2025-01-03 02:55] LABS: INR 1.0
[2025-01-03 07:10] LABS: HEMATOCRIT. 27.4 % (36.0-48.0); HEMOGLOBIN. 8.5 g/dL (12.0-16.0); MEAN PLATELET VOLUME 7.4 fl (7.4-10.4); PLATELET 95 x1000/uL (130-400); RED BLOOD CELL COUNT 3.59 mill/uL (4.2-5.4); RED CELL DISTRIBUTION WIDTH 18.9 % (11.6-14.6)
[2025-01-03 07:18] LABS: CREATININE 0.9 mg/dL (0.6-1.0); UREA NITROGEN BLOOD 10 mg/dL (9-23)
[2025-01-03 10:57] LABS: BG BASE EXCESS 10.7 mmol/L (-2.0-3.0); BG CARBOXYHEMOGLOBIN 1.5 % (0.5-1.5); BG DEOXYHEMOGLOBIN 6.6 % (0.0-5.0); BG FLOW(L/min) 40.00 L/min; BG FRACTION INSPIRED OXYGEN 40; BG HCO3 ACT 38.3 mmol/L (21.0-28.0); BG METHEMOGLOBIN 0.3 % (0.5-1.5); BG OXYGEN SATURATION 93.3 % (94.0-98.0); BG OXYHEMOGLOBIN 91.6 % (94.0-98.0); BG PCO2 71.9 mmHg (32.0-45.0); BG PH 7.344 (7.350-7.450); BG PO2 68.5 mmHg (83.0-108.0); BG SAMPLE SITE RIGHT RADIAL; BG TOTAL HEMOGLOBIN 9.4 g/dL (12.0-16.0); BG VENT MODE HIGH FLOW
[2025-01-03] MEDS: BISACODYL 5MG TABLET PO NR (13:30)
[2025-01-03] MEDS: GUAIFENESIN 200MG/10ML SUGAR FREE UDC PO PRN (17:42)
[2025-01-03 19:59] LABS: BAND% 3.0 % (1.0-6.0); EOSINOPHILS % MANUAL 6.0 % (0.0-5.0); LYMPHOCYTES % MANUAL 34.0 % (20.0-60.0); METAMYELOCYTES % 2.0 % (0-0); MONOCYTES % MANUAL 6.0 % (2.0-8.0); MYELOCYTES % 1.0 % (0-0); NEUTROPHILS % MANUAL 48.0 % (45.0-75.0)
[2025-01-03 20:01] LABS: PLATELET ESTIMATE MARKEDLY DECREASED
== END 2025-01-03 20:41 | DRG 177 ==
LOC: ER 12:46 → 5EST 14:48 → EDBEDREQ 14:55 → EDBEDREQTM 14:55 → EDBEDREQSVC 16:30 → ENRESERV 17:20
PROVIDERS: ADMIT Family Medicine Adult Medicine; ATTEND Family Medicine Adult Medicine
PROC: 5A09357 Assistance with Respiratory Ventilation, Less than 24 Consecutive Hours, Continuous Positive Airway Pressure (ICD-10-PCS; 2024-12-28)
PROC: 5A0945A Assistance with Respiratory Ventilation, 24-96 Consecutive Hours, High Flow/Velocity Cannula (ICD-10-PCS; 2024-12-29)
PROC: 02HV33Z Insertion of Infusion Device into Superior Vena Cava, Percutaneous Approach (ICD-10-PCS; 2024-12-31)
PROC: B548ZZA Ultrasonography of Superior Vena Cava, Guidance (ICD-10-PCS; 2024-12-31)
PROC: 5A09457 Assistance with Respiratory Ventilation, 24-96 Consecutive Hours, Continuous Positive Airway Pressure (ICD-10-PCS; 2024-12-31)
PROC: 4A00X4Z Measurement of Central Nervous Electrical Activity, External Approach (ICD-10-PCS; principal; 2025-01-03)
PROC: 5A0935A Assistance with Respiratory Ventilation, Less than 24 Consecutive Hours, High Flow/Velocity Cannula (ICD-10-PCS; 2025-01-03)
DX: J69.0 Pneumonitis due to inhalation of food and vomit (principal); G93.41 Metabolic encephalopathy; J96.01 Acute respiratory failure with hypoxia; J96.02 Acute respiratory failure with hypercapnia; E23.0 Hypopituitarism; Z68.42 Body mass index [BMI] 45.0-49.9, adult; E27.40 Unspecified adrenocortical insufficiency; E46 Unspecified protein-calorie malnutrition; E66.2 Morbid (severe) obesity with alveolar hypoventilation; N17.9 Acute kidney failure, unspecified; D61.818 Other pancytopenia; I82.4Y2 Acute embolism and thrombosis of unspecified deep veins of left proximal lower extremity; D35.2 Benign neoplasm of pituitary gland; E03.9 Hypothyroidism, unspecified; E11.22 Type 2 diabetes mellitus with diabetic chronic kidney disease; J44.9 Chronic obstructive pulmonary disease, unspecified; I48.0 Paroxysmal atrial fibrillation; K21.9 Gastro-esophageal reflux disease without esophagitis; N18.9 Chronic kidney disease, unspecified; Z74.01 Bed confinement status; F25.9 Schizoaffective disorder, unspecified; I12.9 Hypertensive chronic kidney disease with stage 1 through stage 4 chronic kidney disease, or unspecified chronic kidney disease; E86.0 Dehydration; K76.0 Fatty (change of) liver, not elsewhere classified; F41.9 Anxiety disorder, unspecified; D50.9 Iron deficiency anemia, unspecified; D69.6 Thrombocytopenia, unspecified; E78.00 Pure hypercholesterolemia, unspecified; Z79.01 Long term (current) use of anticoagulants; Z79.899 Other long term (current) drug therapy; Z79.02 Long term (current) use of antithrombotics/antiplatelets; Z99.3 Dependence on wheelchair; Z86.74 Personal history of sudden cardiac arrest; Z87.01 Personal history of pneumonia (recurrent); I69.398 Other sequelae of cerebral infarction
CPT/HCPCS: 36415; 36573; 36600; 71045; 71250; 74018; 76700; 80048; 80061; 80076; 80305; 81003; 82040; 82375; 82533; 82550; 82607; 82728; 82746; 82803; 82805; 82962; 83036; 83540; 83550; 83605; 83735; 83880; 84100; 84145; 84146; 84439; 84443; 84484; 85025; 85027; 85362; 85379; 85384; 86038; 86850; 86900; 87070; 87420; 87804; 93005; 93306; 93970; 94070; 94640; 94660; 94664; 94760; 95816; 97162; 97166; 98960; 99285; A4606; C1725; J0696; J1650; J1815; J2003; J2470; J2543; J2919; J3420; J3490; J7626; Q9963

== ENCOUNTER → 2025-02-04 | Outpatient (CLI) | payer MEDICARE, MEDICAID ==
[~2025-02-04] MED LIST changes: +IOHEXOL-350 100 ML BOTTLE ONE
== END | disposition home or self-care (01) ==
LOC: ER 15:17 → EDSTATUS 16:16 → RAD 16:16
PROVIDERS: ATTEND Psychiatry & Neurology Neurology
DX: I67.82 Cerebral ischemia (principal); G31.89 Other specified degenerative diseases of nervous system; J32.0 Chronic maxillary sinusitis; R22.1 Localized swelling, mass and lump, neck; I63.9 Cerebral infarction, unspecified
CPT/HCPCS: 70496; 70498; Q9967